=== PATIENT | female | born 1950 | race Caucasian/White ===

== ENCOUNTER 2024-10-27 16:16 | Emergency (ER) | payer OTHER, SELFPAY ==
[2024-10-27 17:05] VITALS: BP 133/72
--- NOTE | 2024-10-27 17:25 | ED.GENMED ---
ED Provider Triage
<Atiya Rodriguez PA-C - Last Filed: 10/28/24 17:30>
-
Patient seen by provider in Triage?: Seen in Triage
74-year-old female with history of hyperlipidemia, depression, hypothyroid presents with her daughter for change in mental status over the last several days. Patient is usually 'sharp as attack'. Last week she had a headache and her family doctor
prescribed her 5 days of prednisone, unknown what the dose was. Patient took the prednisone and had some lab work and urine and that was all unremarkable. Her headache got better. The family doctor was suspecting may be giant cell arteritis.
Patient has had steroids before without any problems. Within the last couple of days she has done things little strangely, felt very anxious, had trouble with her thoughts, fixated on certain things, having repetitive speech, drove around for 5
hours yesterday rather than going directly to [place] she was going 'here and there' when her daughter was monitoring her Apple Watch. Patient was not responding to text messages which is unusual for her and she normally is pretty sharp with
these things. She cannot figure out how to do her checkbook which is very unlike her.
Patient has no headache today. Daughter called the family doctor and was instructed to come in
A medical screening examination has been initiated by a qualified medical provider. Based on the assessment performed at this time, it has been determined that an emergent medical condition may exist and the patient has been informed that further
medical evaluation and possible additional diagnostic testing may be needed.
HPI: This is a medical evaluation conducted in person to initiate diagnostic evaluation and provide initial therapeutics. Please see further documentation by the treating clinician.
GENERAL: Alert , in no apparent distress
ENT: No visible abnormalities
LUNGS: No acute respiratory distress
NEUROLOGICAL: Alert and oriented x 3, cranial nerves intact, no deficits
SKIN: Skin intact. No visible changes.
MUSCULOSKELETAL: Moving extremities normally
PSYCH: Little anxious but otherwise appropriate
Patient here with a change in mental status over the last couple of days after taking steroids. She has had no changes to her medications otherwise. Patient is on an SSRI. She has been eating and drinking normally. She had a headache which is
why she was on the steroids to begin with. She no longer has headache. She is neurologically intact but she does seem a little anxious and perseverates over certain questions. Will workup for change in mental
History of Present Illness
<Atiya Rodriguez PA-C - Last Filed: 10/28/24 17:30>
General
Chief Complaint: Change in Mental Status
Time Seen by Provider: 10/27/24 21:39
<Brittany Zafar DO - Last Filed: 10/28/24 03:02>
History of Present Illness
History of Present Illness:
74-year-old female history of previous stroke with no residual deficits, hypertension, hypothyroidism, presenting with change in mental status. Daughter states that patient had a headache last week, seen by her PCP concern for temporal arteritis
and started on prednisone for 5 days which she completed on Sunday 10/22. Patient states that she had a urine sample last week at her doctor's office that was normal. Daughter states that for the past 1 week patient has been more 'hyperfocused'
on certain things, states that she has been also more confused. Daughter states that patient had difficulty balancing her checkbook which is abnormal for patient. Daughter states that patient was not taking her pills as prescribed, states that
pillbox looks like she was taking extra doses for some days and not on others. Daughter states that patient was a [place] the other day but also travel to the multiple other places in between but reported she only went to [place] when she
returned. Daughter states that when she came home today, patient appeared very 'jittery' prompting ED arrival. Patient denies any fever, headaches, chest pain, shortness of breath, cough, abdominal pain, or urinary symptoms.
Past History
<Atiya Rodriguez PA-C - Last Filed: 10/28/24 17:30>
Past History
ED Past Medical History: None
ED Past Surgical History: Other
Social History
Tobacco: Smoker
Alcohol: None
Personal: Single
Living: alone
Family History
Family History: Other
Phy Exam
<Brittany Zafar DO - Last Filed: 10/28/24 03:02>
Physical Exam
Physical Exam:
General: Alert, no acute distress
Head: NCAT
Eyes: clear conjunctiva
Neck: supple
Cardiac: regular rate and rhythm, no murmur
Lungs: clear to auscultation bilaterally. No wheezes, rales, or rhonchi. Speaking full unlabored sentences. No respiratory distress.
Abdomen: soft, nondistended nontender. No rebound or guarding.
MSK: no lower extremity edema bilaterally. No deformity
Skin: warm, dry
Neuro: Alert and oriented x3. Cranial nerves II through XII grossly intact no focal deficits. Normal finger-nose. 5-5 strength bilateral upper lower extremities. Sensation intact. No pronator drift.
Course
<Atiya Rodriguez PA-C - Last Filed: 10/28/24 17:30>
Orders/Labs/Results
Orders:
Orders
10/27/24 17:24
CT Head W/o Iv Contrast Urgent
Comment:
Reason For Exam: ams
10/27/24 17:27
Electrocardiogram (*1) Urgent
Reason for Study: TIA/Stroke
EKG- Treatment ONCE
10/27/24 17:38
Complete Blood Count/With Diff Urgent
Comprehensive Metabolic Panel Urgent
TSH Reflex To Free T4 Urgent
Urinalysis Reflex To Culture Urgent
Date Specimen was Collected: 10/27/24
Time Specimen was Collected: 17:36
Urine Microscopic Reflex Cult Urgent
Urine Culture Urgent
THEA Source: U
Specimen Description:
Date Specimen was Collected: 10/27/24
Time Specimen was Collected: 17:36
10/27/24 22:06
Cephalexin Monohydrate [Keflex] 500 mg PO NOW STA
Abnormal Lab Results
10/27/24
17:38
WBC 11.3 H 10^3/uL
(4.8-10.8)
RBC 3.88 L 10^6/uL
(4.20-5.40)
MCV 101.3 H fL
(81.0-99.0)
MCH 33.0 H pg
(27.0-31.0)
MCHC 32.6 L g/dL
(33.0-37.0)
MPV 10.9 H fL
(7.4-10.4)
Abs Immat Gran (auto) 0.2 H 10^3/uL
(0-0.05)
Absolute Neuts (auto) 6.6 H 10^3/uL
(1.4-6.5)
Absolute Monos (auto) 1.2 H 10^3/uL
(0.1-0.6)
Immature Gran % 1.3 H %
(0-0.5)
Monocytes % 10.3 H %
(1.7-9.3)
Glucose 122 H mg/dl
(70-99)
Leukocyte Esterase Rfl 1+ A
(Negative)
Urine WBC (Reflex) 30-40 A /HPF
(0-5)
Urine Bacteria (Reflex) Few A
(Negative)
Urine Albumin (Reflex) 2+ A
(Neg - Trace)
10/27/24 17:38
10/27/24 17:38
Vital Signs
Initial and Last Documented VS:
Initial Vital Signs
Temp Pulse Resp BP Pulse Ox
36.8 C 88 18 133/72 96
10/27/24 17:05 10/27/24 17:05 10/27/24 17:05 10/27/24 17:05 10/27/24 17:05
Last Documented Vital Signs
Temp Pulse Resp BP Pulse Ox
36.8 C 88 18 133/72 96
10/27/24 17:05 10/27/24 17:05 10/27/24 17:05 10/27/24 17:05 10/27/24 17:05
<Brittany Zafar, DO - Last Filed: 10/28/24 03:02>
Orders/Labs/Results
Orders:
Orders
10/27/24 17:24
CT Head W/o Iv Contrast Urgent
Comment:
Reason For Exam: ams
10/27/24 17:27
Electrocardiogram (*1) Urgent
Reason for Study: TIA/Stroke
EKG- Treatment ONCE
10/27/24 17:38
Complete Blood Count/With Diff Urgent
Comprehensive Metabolic Panel Urgent
TSH Reflex To Free T4 Urgent
Urinalysis Reflex To Culture Urgent
Date Specimen was Collected: 10/27/24
Time Specimen was Collected: 17:36
Urine Microscopic Reflex Cult Urgent
Urine Culture Urgent
THEA Source: U
Specimen Description:
Date Specimen was Collected: 10/27/24
Time Specimen was Collected: 17:36
10/27/24 22:06
Cephalexin Monohydrate [Keflex] 500 mg PO NOW STA
Abnormal Lab Results
10/27/24
17:38
WBC 11.3 H 10^3/uL
(4.8-10.8)
RBC 3.88 L 10^6/uL
(4.20-5.40)
MCV 101.3 H fL
(81.0-99.0)
MCH 33.0 H pg
(27.0-31.0)
MCHC 32.6 L g/dL
(33.0-37.0)
MPV 10.9 H fL
(7.4-10.4)
Abs Immat Gran (auto) 0.2 H 10^3/uL
(0-0.05)
Absolute Neuts (auto) 6.6 H 10^3/uL
(1.4-6.5)
Absolute Monos (auto) 1.2 H 10^3/uL
(0.1-0.6)
Immature Gran % 1.3 H %
(0-0.5)
Monocytes % 10.3 H %
(1.7-9.3)
Glucose 122 H mg/dl
(70-99)
Leukocyte Esterase Rfl 1+ A
(Negative)
Urine WBC (Reflex) 30-40 A /HPF
(0-5)
Urine Bacteria (Reflex) Few A
(Negative)
Urine Albumin (Reflex) 2+ A
(Neg - Trace)
10/27/24 17:38
10/27/24 17:38
Vital Signs
Initial and Last Documented VS:
Initial Vital Signs
Temp Pulse Resp BP Pulse Ox
36.8 C 88 18 133/72 96
10/27/24 17:05 10/27/24 17:05 10/27/24 17:05 10/27/24 17:05 10/27/24 17:05
Last Documented Vital Signs
Temp Pulse Resp BP Pulse Ox
36.8 C 88 18 133/72 96
10/27/24 17:05 10/27/24 17:05 10/27/24 17:05 10/27/24 17:05 10/27/24 17:05
<Brittany Zafar, DO - Last Filed: 10/28/24 03:02>
MDM/Problems Addressed
Differential Diagnosis Includes:
Intracranial hemorrhage, GEOVANI, electrolyte abnormality, UTI, prednisone side effect
MDM/Problems Addressed:
Labs reviewed. WBC 11.3. Electrolytes within normal limits. CT head shows no acute intracranial abnormality, chronic transcortical infarct of the left frontal parietal junctio, as read by radiology. UA concerning for UTI. Discussed results with
patient at bedside. Patient alert and oriented x 3. Patient requesting discharge home. Daughter feels comfortable taking patient home. Will start patient on keflex for UTI. Patient reports history of penicillin allergy as a kid, had a rash at
that time. Suspect patient will tolerate Keflex. Stable for discharge with PCP follow up
<Brittany Zafar DO - Last Filed: 10/28/24 03:02>
*EKG
Interpreted by ED Provider?: Yes (EKG shows normal sinus rhythm at 90 bpm with RI 124 QTc 438 no acute ischemic changes)
ED Attending Note
<Atiya Rodriguez PA-C - Last Filed: 10/28/24 17:30>
-
Portions of this chart may have been created with voice recognition software.� Occasional wrong word or��sound alike� substitutions may have occurred due to the inherent limitations of voice recognition software.
Discharge Plan
Departure
Patient Disposition: Home (Routine Discharge)
Date of Disposition: 10/27/24
Time of Disposition: 22:08
Patient with high blood pressure during this ER visit?: Yes
Discharge Problem:
Acute UTI
Instructions: Urinary tract infections in adults
Prescriptions:
New
cephalexin 500 mg capsule
500 mg PO Q8H 7 Days Qty: 21 0RF
No Action
atorvastatin 80 MG tablet
80 mg PO QPM
aspirin 325 MG tablet
325 mg PO DAILY
venlafaxine [Effexor XR] 150 MG capsule,extended release 24hr
150 mg PO DAILY
Levothyroxine
88 mg PO DAILY
Referrals:
Ben Hanks MD [Family Provider] -
Activity Restrictions/Additional Instructions:
Take Keflex 3 times daily for 7 days
Follow-up with your primary care doctor in 1 to 2 days
Return to the emergency department for fever, persistent vomiting, or new/worsening symptoms
Interventions
Interventions:
*Risk Screen - Suicide Last Done: 10/27/24 21:55
*General Assessment Last Done: 10/27/24 21:55
*Neglect/Abuse Screening Last Done: 10/27/24 21:55
ED- Fall Risk Assessment Last Done: 10/27/24 22:14
*ED COVID-19 Vaccine History Last Done: 10/27/24 17:05
*Nursing Disposition Last Done: 10/27/24 22:16
ED- Pulmonary Assessment Last Done: 10/27/24 22:14
ED- Neurological Assessment Last Done: 10/27/24 22:10
ED Swallowing Screen Last Done: 10/27/24 22:10
Discharge Date and Time
Discharge Date/Time: 10/27/24 22:17
Print Language: KYRGYZ
[2024-10-27 17:53] LABS: % Basophils 0.4 % (0-2); % Eosinophils 0.4 % (0-6); % Immature Granulocytes 1.3 % (0-0.5); % Lymphocytes 29.2 % (20.5-51.1); % Monocytes 10.3 % (1.7-9.3); % Neutrophils 58.4 % (42.2-75.2); Absolute Basophils 0.1 10^3/uL (0-0.2); Absolute Eosinophils 0.1 10^3/uL (0-0.7); Absolute Immature Granulocytes 0.2 10^3/uL (0-0.05); Absolute Lymphocytes 3.3 10^3/uL (1.2-3.4); Absolute Monocytes 1.2 10^3/uL (0.1-0.6); Absolute Neutrophils 6.6 10^3/uL (1.4-6.5); Hematocrit 39.3 % (37.0-47.0); Hemoglobin 12.8 g/dL (12.0-16.0); Mean Corp Hgb Conc. 32.6 g/dL (33.0-37.0); Mean Corpuscular Volume 101.3 fL (81.0-99.0); Mean Platelet Volume 10.9 fL (7.4-10.4); Nucleated Red Blood Cells % 0.2 %; Platelet Count 306 10^3/uL (130-400); Red Blood Cell Count 3.88 10^6/uL (4.20-5.40); Red Cell Dist. Width 13.6 % (11.5-14.5); White Blood Cell Count 11.3 10^3/uL (4.8-10.8)
[2024-10-27 17:55] LABS: Urine Albumin 2+ (Neg - Trace); Urine Bilirubin Negative (Negative); Urine Character Clear (Clear); Urine Color Yellow; Urine Glucose Negative (Negative); Urine Ketone Negative (Negative); Urine Leukocyte 1+ (Negative); Urine Nitrite Negative (Negative); Urine Occult Blood Negative (Negative); Urine Urobilinogen 1+ (Neg - 1+)
[2024-10-27 18:13] LABS: ALT (SGPT) 22 U/L (0-35); AST (SGOT) 22 U/L (14-36); Alkaline Phosphatase 88 U/L (38-126); Blood Urea Nitrogen 13 mg/dl (7-17); Calcium 10.1 mg/dl (8.4-10.2); Carbon Dioxide 29 mmol/L (22-30); Chloride 100 mmol/L (98-107); Glucose 122 mg/dl (70-99); Potassium 4.3 mmol/L (3.5-5.1); Sodium 137 mmol/L (135-145); Total Bilirubin 1.1 mg/dl (0.2-1.3); Total Protein 7.2 g/dl (6.3-8.2); eGFR > 60.00
[2024-10-27 18:44] LABS: TSH Reflex To Free T4 3.04 uIU/ml (0.47-4.68)
[2024-10-27 19:11] LABS: Urine Mucus Moderate; Urine Red Blood Cell 0-2 /HPF (0-2)
[2024-10-27 19:12] LABS: Urine Bacteria Few (Negative); Urine White Cell 30-40 /HPF (0-5)
[2024-10-27] MEDS: KEFLEX 500 MG PO (22:12)
== END 2024-10-27 22:17 | disposition home or self-care (01) ==
LOC: EMR 16:16
PROVIDERS: Physician Assistant; EMERGENCY PHYSICIAN Emergency Medicine; FAMILY PHYSICIAN Internal Medicine
DX: N39.0 Urinary tract infection, site not specified (principal); F17.200 Nicotine dependence, unspecified, uncomplicated; Z86.73 Personal history of transient ischemic attack (TIA), and cerebral infarction without residual deficits; I10 Essential (primary) hypertension; E03.9 Hypothyroidism, unspecified
CPT/HCPCS: 99284; 70450; 80053; 81003; 81015; 84443; 85025; 87086; 93005

== ENCOUNTER 2025-05-29 08:01 | Inpatient (IN) | payer OTHER, SELFPAY ==
[2025-05-25 18:19] VITALS: BP 138/75
--- NOTE | 2025-05-25 18:45 | ED.CVA ---
History of Present Illness
<Jorge Wilson PA-C - Last Filed: 05/25/25 21:24>
General
Chief Complaint: CVA/TIA Symptoms
Source: patient
Exam Limitations: none
Time Seen by Provider: 05/25/25 18:18
Onset of Stroke Symptoms
Onset of symptoms known: No
Time pt last seen normal is known: No
History of Present Illness
History of Present Illness:
Is a 74-year-old female with history of TIA on Eliquis presents via EMS from home where she lives with her daughter who noticed that this evening the patient was having trouble getting out of words slurring her words and had a left-sided facial
droop. Her daughter lives with her. Last she saw the daughter was 4:30 PM before the daughter went on a walk. Upon returning from a walk the daughter noticed the symptoms. Patient denies any headache chest pain or shortness of breath. She
denies any vision changes. No unilateral numbness or weakness. Per EMS they noticed a slight slurred speech upon their arrival and a very subtle left facial droop on their arrival however all symptoms seem to have resolved and route.
Past History
<Jorge Wilson PA-C - Last Filed: 05/25/25 21:24>
Past History
ED Past Medical History: None
ED Past Surgical History: Other
Social History
Tobacco: Smoker
Alcohol: None
Personal: Single
Living: alone
Family History
Family History: Other
Phy Exam
<Jorge Wilson PA-C - Last Filed: 05/25/25 21:24>
Physical Exam
Physical Exam:
General: Well-appearing female no acute respiratory distress
HEENT: Normal cephalic atraumatic face is pupils equal round reactive to light extract motion intact
Heart: Regular rate and rhythm
Lungs: Clear no wheeze
Neurologic exam: Alert and oriented no drift on exam to the upper or lower extremities finger-nose roim-pw-begs intact. No dysarthria or aphasia. Good sensation to the extremities.
Extremities: No cyanosis or edema
Scores
<Jorge Wilson PA-C - Last Filed: 05/25/25 21:24>
NIH Stroke Score
NIH Total Score:: 1
<Edy Roman MD - Last Filed: 05/25/25 19:51>
NIH Stroke Score
Level of Consciousness: 0 - Alert
LOC Questions: 0-Answers both correctly
LOC Commands: 0-Performs both correctly
Best Horizontal Gaze: 0-Normal
Visual Cox: 0=Normal, no visual loss
Facial Palsy: 1=Minor paralysis
Motor - Right Arm: 0=No drift 10 seconds
Motor - Left Arm: 0=No drift 10 seconds
Motor - Right Le-No drift 5 seconds
Motor - Left Le-No drift 5 seconds
Limb Ataxia: 0-Absent
Sensation: 0-Normal
Best Language: 0-No aphasia
Dysarthria: 0-Normal
Extinction and Inattention: 0-No abnormality
NIH Total Score:: 1
Thrombolytic Contraindication
Inclusion and Exclusion criteria reviewed: Yes
Reasons for NON-Tx with Thrombolytics ABSOLUTE Exclusions: Patient taking oral anticoagulant and last dose within 48 hours
Course
<Jorge Wilson PA-C - Last Filed: 05/25/25 21:24>
Orders/Labs/Results
Orders:
Orders
05/25/25 18:26
ECG [Electrocardiogram (*1)] Urgent
Reason for Study: TIA/Stroke
05/25/25 18:27
EKG- Treatment ONCE
05/25/25 18:28
Cardiovascular Evaluation Urgent
Complete Blood Count/With Diff Urgent
Comprehensive Metabolic Panel Urgent
05/25/25 18:48
CT Head W/o Iv Contrast Urgent
Reason For Exam: slurred speech, left facial droop
05/25/25 19:38
Add On- LAB Urgent
Tests Added?: lipid profile
Abnormal Lab Results
05/25/25
18:28
RBC 3.29 L 10^6/uL
(4.20-5.40)
Hgb 11.0 L g/dL
(12.0-16.0)
Hct 33.0 L %
(37.0-47.0)
MCV 100.3 H fL
(81.0-99.0)
MCH 33.4 H pg
(27.0-31.0)
MPV 11.5 H fL
(7.4-10.4)
Sodium 134 L mmol/L
(135-145)
Glucose 117 H mg/dl
(70-99)
05/25/25 18:28
05/25/25 18:28
Vital Signs
Initial and Last Documented VS:
Initial Vital Signs
Temp Pulse Resp BP Pulse Ox
98.5 F 83 16 138/75 97
05/25/25 18:19 05/25/25 18:19 05/25/25 18:19 05/25/25 18:19 05/25/25 18:19
Last Documented Vital Signs
Temp Pulse Resp BP Pulse Ox
98.5 F 86 24 130/100 97
05/25/25 18:19 05/25/25 20:30 05/25/25 20:30 05/25/25 20:01 05/25/25 18:48
<Edy Roman MD - Last Filed: 05/25/25 19:51>
Orders/Labs/Results
Orders:
Orders
05/25/25 18:26
ECG [Electrocardiogram (*1)] Urgent
Reason for Study: TIA/Stroke
05/25/25 18:27
EKG- Treatment ONCE
05/25/25 18:28
Cardiovascular Evaluation Urgent
Complete Blood Count/With Diff Urgent
Comprehensive Metabolic Panel Urgent
05/25/25 18:48
CT Head W/o Iv Contrast Urgent
Reason For Exam: slurred speech, left facial droop
05/25/25 19:38
Add On- LAB Urgent
Tests Added?: lipid profile
Abnormal Lab Results
05/25/25
18:28
RBC 3.29 L 10^6/uL
(4.20-5.40)
Hgb 11.0 L g/dL
(12.0-16.0)
Hct 33.0 L %
(37.0-47.0)
MCV 100.3 H fL
(81.0-99.0)
MCH 33.4 H pg
(27.0-31.0)
MPV 11.5 H fL
(7.4-10.4)
Sodium 134 L mmol/L
(135-145)
Glucose 117 H mg/dl
(70-99)
05/25/25 18:28
05/25/25 18:28
Vital Signs
Initial and Last Documented VS:
Initial Vital Signs
Temp Pulse Resp BP Pulse Ox
98.5 F 83 16 138/75 97
05/25/25 18:19 05/25/25 18:19 05/25/25 18:19 05/25/25 18:19 05/25/25 18:19
Last Documented Vital Signs
Temp Pulse Resp BP Pulse Ox
98.5 F 86 24 130/100 97
05/25/25 18:19 05/25/25 20:30 05/25/25 20:30 05/25/25 20:01 05/25/25 18:48
<Jorge Wilson PA-C - Last Filed: 05/25/25 21:24>
MDM/Problems Addressed
Differential Diagnosis Includes:
Patient brought here for concern and family member's behalf secondary to slurred speech and facial droop. On my exam there is no evidence of dysarthria or aphasia or facial droop. There is no unilateral deficit noted. Concern for possible TIA.
She is on Eliquis. Discussed with emergency room attending as well as neurology. CT angio of the head and neck ordered. Labs and EKG pending.
<Jorge Wilson PA-C - Last Filed: 05/25/25 21:24>
*Pulse Oximetry
SaO2: 97
Oxygen Mode of Delivery: Room air
Patient hypoxic: no
*Critical Care Note
Total Time (30-74mins, 75-104mins- exclusive of procedures): Not Applicable
<Jorge Wilson PA-C - Last Filed: 05/25/25 21:24>
Update Note
Update Note:
CT of the head showed old bilateral MCA infarcts but no acute findings. Patient reexamined family now in the room. Still with clear speech. Discussed emergency room attending as well as neurology. Will admit to hospital for TIA workup.
ED Attending Note
<Jorge Wilson PA-C - Last Filed: 05/25/25 21:24>
-
Portions of this chart may have been created with voice recognition software.� Occasional wrong word or��sound alike� substitutions may have occurred due to the inherent limitations of voice recognition software.
<Edy Roman MD - Last Filed: 05/25/25 19:51>
ED Attending Note
Patient seen and examined by attending physician: Yes
ED Attending Note:
I have seen and evaluated the patient with a [id number] encounter. I have spoken to the advance practicer provider and involved in the medical history, the physical exam, medical decision making.
Evaluation and management service: agree unless noted differently below.
Results interpretation: agree unless noted differently below.
Focused HPI: 74-year-old female with history of hypertension, CVA, A-fib on Eliquis presents to the ER with daughters for evaluation after episode of facial droop and slurred speech, confusion. She was last seen normal at 4:30 PM, daughter returned
home from a walk and found her sitting at the table appeared more subdued than usual and had notable left facial droop and was slurring speech. EMS called to bring her to the hospital. Symptoms have improved and patient says she feels back to
normal. Daughter says that she essentially looks normal except she still has a very subtle residual facial droop on the left. Patient does not and did not have any weakness or numbness in extremities, change in her vision. Denies any headache.
She is on Eliquis and reports compliance with dose taken this morning.
Physical exam: Awake and alert not in distress. Vital signs are within acceptable range. No appreciable cardiac rubs gallops or murmurs. Regular rhythm on auscultation. Lungs sound clear. She does seem to have a very subtle downturn in the left
corner of her mouth compared to the right which daughter is saying is abnormal. Cranial nerves are otherwise intact. Speech is fluid without dysarthria or aphasia here. Motor and sensory is intact in all extremities.
Medical Decision Makin-year-old female presents for evaluation of facial droop with slurred speech and confusion�symptoms have essentially resolved aside from a very subtle facial droop. She does have a history of A-fib and is on Eliquis and
compliant. Last known normal 4:30 PM. No stroke alert as patient would not be a TNK candidate with oral coagulant on board. Nevertheless we will pursue CTA head and neck�discussed case with neurology who agrees. Plan likely for admission with
concern for TIA/stroke.
Discharge Plan
Departure
Patient Disposition: Admit
Date of Disposition: 05/25/25
Time of Disposition: 21:24
Presentation/result/management discussed w/ accepting MD/DO: Hospitalist
Discharge Problem:
TIA
Prescriptions:
No Action
levothyroxine [Synthroid] 125 mcg Tablet
125 mcg PO DAILY
losartan 50 mg Tablet
50 mg PO DAILY
atorvastatin [Lipitor] 40 mg Tablet
40 mg PO QPM
Theragen Tablet
1 tab PO DAILY
acetaminophen [Tylenol Arthritis] 650 mg Tablet Extended Release
650 mg PO [id number] PRN (Reason: mild pain)
venlafaxine 225 mg Tablet Extended Release 24hr
225 mg PO DAILY
melatonin 10 mg Tablet
10 mg PO HSPRN PRN (Reason: sleep)
Eliquis 5 mg Tablet
5 mg PO BID
Referrals:
Ben Hanks MD [Family Provider]
Interventions
Interventions:
*Risk Screen - Suicide Last Done: 05/25/25 18:19
*General Assessment Last Done: 05/25/25 18:19
*Neglect/Abuse Screening Last Done: 05/25/25 18:26
*ED- Fall Risk Assessment Last Done: 05/25/25 18:26
*ED COVID-19 Vaccine History Last Done: 05/25/25 18:26
ED- Pulmonary Assessment Last Done: 05/25/25 18:23
ED- Neurological Assessment Last Done: 05/25/25 18:23
ED- Cardiac Assessment Last Done: 05/25/25 18:23
ED Swallowing Screen Last Done: 05/25/25 20:45
Discharge Date and Time
Print Language: CZECH
[2025-05-25 19:00] VITALS: BP 126/86
[2025-05-25 19:12] LABS: ALT (SGPT) 21 U/L (0-35); AST (SGOT) 27 U/L (14-36); Albumin 4.5 g/dl (3.5-5.0); Alkaline Phosphatase 73 U/L (38-126); Blood Urea Nitrogen 11 mg/dl (7-17); Calcium 9.2 mg/dl (8.4-10.2); Carbon Dioxide 28 mmol/L (22-30); Chloride 100 mmol/L (98-107); Glucose 117 mg/dl (70-99); Hematocrit 33.0 % (37.0-47.0); Hemoglobin 11.0 g/dL (12.0-16.0); Mean Corp Hgb Conc. 33.3 g/dL (33.0-37.0); Mean Corpuscular Volume 100.3 fL (81.0-99.0); Platelet Count 288 10^3/uL (130-400); Potassium 4.4 mmol/L (3.5-5.1); Red Cell Dist. Width 13.2 % (11.5-14.5); Sodium 134 mmol/L (135-145); Total Protein 6.9 g/dl (6.3-8.2); eGFR > 60.00
[2025-05-25 20:01] VITALS: BP 130/100
[2025-05-25 20:19] LABS: HDL Cholesterol 63 mg/dl; LDL Cholesterol, Calculated 57 mg/dl; Very Low Density Lipoprotein 24 mg/dl (0-30)
[2025-05-25 21:14] VITALS: BP 145/69
--- NOTE | 2025-05-25 21:25 | W.PN.UPDATE ---
Update Note
Progress Note Update
This is an addendum for H&P written by PARTS FACILITATOR Magaly Domínguez
I saw and examined the patient.
The PARTS FACILITATOR's note was reviewed and I agree with the note.
Comment:
Ms. Shereen Hayden is a 74 yo woman with hx TIA on Eliquis, hypothyroidism, HLD, HTN who presents to the ER with left sided facial droop and slurred speech. Symptoms resolved en route.
Triage VS: T 98.5, P 83, RR 16, BP 138/75, SpO2 97%
On exam patient is AAO x 3, no facial asymmetry, TAMARA, 5/5 strength upper and lower extremities; CV: S1, S2, irregular rhythm, no LE swelling
LABS: WBC 9.8, Hg 11, PLT 288, Na 134, K+ 4.4, CO2 28, Cr 0.6, Glucose 117, liver enzymes WNL
CT Head
IMPRESSION:
No acute intracranial abnormality.
Left MCA territory old infarct again seen.
Cannot exclude small old right parietal lobe infarct.
TIA
-give Eliquis now
-admit to telemetry
-continue CULLET TRUCKER Eliquis (as deficits now resolved)
-MRI/MRA
-Neuro checks
-Neurology consult
Essential HTN - CULLET TRUCKER Losartan
Hypothyroidism - CULLET TRUCKER Synthroid
HLD - CULLET TRUCKER Statin
Remainder of plan per PARTS FACILITATOR note
--- NOTE | 2025-05-25 21:32 | HPS.HSE ---
Family Physician
-
Family Physician: Ben Hanks
Chief Complaint
-
Left facial droop, slurring of words
History of Present Illness
74-year-old female from home where she lives with her daughter states she was having slurring of her words with left-sided facial droop. She was last seen normal at 4:30 PM by her daughter before her daughter left for a walk upon returning
approximately [phone] daughter noticed the symptoms. EMS noticed slight slurred speech upon arrival and subtle left facial droop that resolved en route to the hospital. The patient does not recall having the symptoms she felt that she was fine.
She denies looking in the mirror to see if she had facial droop. She denies headache, fever, chills, sore throat, chest pain, palpitations, cough, shortness breath, abdominal pain, nausea, vomiting, diarrhea, urinary symptoms. Patient has past
medical history of CVA 2013 (Left MCA territory old infarct), HTN, HLD, paroxysmal A-fib on Eliquis hypothyroidism, prediabetes, anxiety
Medical History
Past Medical History
Past Medical History: Reports Other
Additional Past Medical History:
CVA (Left MCA territory old infarct,small old right parietal lobe infarct) 2013
HTN
HLD
Hypothyroidism
Paroxysmal A-fib
Prediabetes
Anxiety
Former smoker 45-year 1.5 pack/day quit age 64
Past Surgical History: Reports Other
Additional Past Surgical History:
Patent ductus arteriosus repair 1954
Cholecystectomy
Throat surgeries to remove polyps
Hip replacement
Bilateral knee replacement
Right hand carpal tunnel
Social History
Tobacco: Former Smoker (Former smoker 45-year 1.5 pack/day quit age 64)
Alcohol: Occasional (2-3 times a month)
Personal:
Living: With Family
Employment: Retired
Family History
Family History: Not pertinent
Allergies / Home Medications
Allergies reflects when Allergies were last updated in [facility].
Home Medications with original date entered in [facility]
Allergy/Medication List:
Allergies
Allergy/AdvReac Type Severity Reaction Status Date / Time
Penicillins Allergy Rash Verified 05/25/25 18:21
Home Medications
levothyroxine 125 mcg tablet (Synthroid) 125 mcg PO DAILY 10/08/16
acetaminophen 650 mg tablet,extended release 650 mg PO [id number] PRN mild pain 05/25/25
apixaban 5 mg tablet (Eliquis) 5 mg PO BID 05/25/25
atorvastatin 40 mg tablet (Lipitor) 40 mg PO QPM 05/25/25
losartan 50 mg tablet 50 mg PO DAILY 05/25/25
melatonin 10 mg tablet 10 mg PO HSPRN PRN sleep 05/25/25
therapeutic multivitamin 1 tab PO DAILY 05/25/25
venlafaxine 225 mg tablet,extended release 24 hr 225 mg PO DAILY 05/25/25
Review of Systems
-
History Source: Patient
A 12 point ROS was completed and negative except as noted: Yes
Constitutional: Denies Fever, Fatigue or Chills
EENT: Reports Other (Reported slurred speech left facial droop); Denies Sore Throat
Respiratory: Denies Cough or Trouble Breathing
Cardiac: Denies Chest Pain, Diaphoresis, Palpitations or Syncope
Abdomen/GI: Denies Abdominal Pain, Nausea, Vomiting, Diarrhea or Constipated
: Denies Dysuria, Frequency, Flank Pain, Incontinence, Difficulty Voiding or Urgency
Musculoskeletal: Denies Joint Pain, Joint Swelling or Edema
Skin: Denies Itching or Rash
Neurological: Denies Dizzy, Headache, Weakness or Numbness
Endocrine: Reports No Symptoms
Hematologic/Lymphatic: Reports No Symptoms
Psych: Reports Calm
Physical Exam
Vital Signs
Vital Signs
Temp Pulse Resp BP Pulse Ox
98.5 F 86 24 130/100 97
05/25/25 18:19 05/25/25 20:30 05/25/25 20:30 05/25/25 20:01 05/25/25 18:48
Physical Exam
General: Comfortable and Conversant; No Fever, Chills or Slurred Speech
HEENT: NormoCephalic, Anicteric, Moist mucous membranes, Atraumatic, PERRLA, Moro Conjunctivae and No Ptosis
Respiratory: Clear; No Wheezes, Rales or Rhonchi
Cardiac: S1/S2 and Regular Rhythm (81 bpm appears to be bigeminy); No Murmur, Rub, Gallop or Peripheral Edema
Breast: Deferred by me
GI: Soft, Non Tender, Non Distended, Normal Bowel Sounds and No Hepatosplenomegaly
Rectal: Deferred by Provider
Genito-urinary: Deferred by me
Musculoskeletal: No Clubbing, No Cyanosis and No Edema
Skin: Warm and Dry; No Rash
Neuro: AO x 3, No Motor Deficits, Nonfocal/grossly intact, Cranial Nerves Intact, No Sensory Deficits and Other (Strength 5 out of 5 upper and lower extremities walked to bathroom to and from steady gait); No Slurred Speech, Facial Droop, Tremors or
Sedated
Psych: Calm
Laboratory Results
-
05/25/25 18:28
05/25/25 18:28
Laboratory Results
Total Bilirubin 0.5 mg/dl (0.2-1.3) 05/25/25 18:28
AST 27 U/L (14-36) 05/25/25 18:28
ALT 21 U/L (0-35) 05/25/25 18:28
Alkaline Phosphatase 73 U/L (38-126) 05/25/25 18:28
Impression/Plan
-
Impression/plan:
Observation telemetry
#Left facial droop/slurred speech concern for CVA/TIA
#History CVA left MCA possible old right parietal lobe infarct 2013
- Consult neurology
- MRI MRI brain
-Check lipid profile, HgbA1c
-Continue Eliquis, continue Lipitor
-Consult PT
CT head: No acute intracranial abnormality
Left MCA territory old infarct again seen
cannot exclude small old right parietal lobe infarct
#HTN
BP 145/69
-Allow permissive HTN x 24 hours
-Continue losartan 50 mg daily
#Anemia macrocytic
Hgb 11 baseline appears 12.8-13
-Check B12, folate, iron panel
#A-fib
Continue Eliquis 5 mg twice daily
EKG: Heart rate 81 bpm possible bigeminy P waves are present QTc 436 MS
#History prediabetes
Blood sugar 117
Check HgbA1c
#HLD
-Lipid profile
-Continue Lipitor 40 mg every afternoon
#Hypothyroidism
-Continue Synthroid 125 mcg p.o. daily
#Anxiety
Continue Effexor to 25 mg daily
#Insomnia
-Continue melatonin 10 mg at bedtime as needed
VTE prophylaxis
Continue Eliquis
[2025-05-25 21:48] LABS: Nucleated Red Blood Cells % 0 %
[2025-05-25] MEDS: ELIQUIS 5 MG PO (22:26)
[2025-05-25 22:28] VITALS: BP 146/82
[2025-05-26] VITALS (10 sets, daily range): BP systolic 114–150; BP diastolic 54–77; PULSE 79–96; O2SAT 96–97; BMI 29.7
[2025-05-26] MEDS: MELATONIN 10 MG PO (00:26)
[2025-05-26] MEDS: SYNTHROID 125 MCG PO (04:48)
[2025-05-26 08:09] LABS: Hematocrit 32.8 % (37.0-47.0); Hemoglobin 11.0 g/dL (12.0-16.0); Mean Corp Hgb Conc. 33.5 g/dL (33.0-37.0); Mean Corpuscular Volume 100.3 fL (81.0-99.0); Nucleated Red Blood Cells % 0 %; Platelet Count 280 10^3/uL (130-400); Red Cell Dist. Width 13.2 % (11.5-14.5)
[2025-05-26 08:48] LABS: ALT (SGPT) 19 U/L (0-35); AST (SGOT) 22 U/L (14-36); Albumin 4.2 g/dl (3.5-5.0); Alkaline Phosphatase 76 U/L (38-126); Blood Urea Nitrogen 8 mg/dl (7-17); Calcium 9.3 mg/dl (8.4-10.2); Carbon Dioxide 27 mmol/L (22-30); Chloride 104 mmol/L (98-107); Estimated Creatinine Clearance 75 ml/min; Glucose 107 mg/dl (70-99); HDL Cholesterol 63 mg/dl; Iron 115 ug/dl (37-170); LDL Cholesterol, Calculated 67 mg/dl; Magnesium 1.9 mg/dl (1.6-2.3); Potassium 4.3 mmol/L (3.5-5.1); Sodium 137 mmol/L (135-145); Total Protein 6.6 g/dl (6.3-8.2); Very Low Density Lipoprotein 19 mg/dl (0-30); eGFR > 60.00
[2025-05-26 08:59] LABS: Total Iron Binding Capacity 231 ug/dl (265-497)
--- NOTE | 2025-05-26 09:08 | CON.NEURO4 ---
Addendum entered and electronically signed by Kme Flores MD 05/26/25 10:59:
Studies reviewed.
I have personally examined the patient. I reviewed and agree with the TELEGRAPH LINEMAN's Note.
My addenda:
Awake, alert, interactive. No acute distress.
Speech intact.
Follows 2-step requests w/o difficulty. No tremor.
Extra-ocular movements grossly intact.
Facial movements full and symmetric. Hearing intact to normal conversational volume.
Normal UE movements bilaterally.
Neck: full ROM.
Chest: no dyspnea
Heart: no JVD
Ext: (-) Clubbing, (-) Cyanosis, (-) Edema
IMPRESSIONS/RECOMMENDATIONS:
Abrupt onset of change of speech in a patient with prior history of acute ischemic stroke. Patient symptoms were also associated with left-sided facial droop. Differential diagnosis includes recurrent stroke or metabolic abnormality producing
recrudescence of symptoms
Continue patient's usual apixaban
Check CTA head and neck for possible carotid stenosis
Check MRI of brain await LDL, continue atorvastatin
Goal of normotension
Rehabilitation evaluations and treatment
Consideration for neuropsychological evaluation to discover baseline for the patient's cognition as outpatient
Obtain records from patient's usual hospital
D/W patient / family
All questions answered.
Will continue to follow pending results.
Original Note:
Documented by User: Shawanda Hartley NP 05/26/25 10:45
Consultation - Neurology 4
-
CONSULTING PHYSICIAN: Kem Flores MD
REFERRING PHYSICIAN: Hospitalists/GARRETT Lopez
DICTATED BY: GARRETT Joseph
DATE/TIME OF REQUEST: 05/25/25
DATE/TIME OF CONSULTATION: 05/26/25
Reason for Consultation: Dysarthria, left facial drooping
History of Present Illness:
This is a 74-year-old right-handed female who has presented to the hospital with report of dysarthria and left facial drooping. Patient has a history of an old L MCA territory and right parietal lobe ischemic stroke. Per the patient and her son at
bedside, they report that yesterday (05/25/25) she was in her usual state around 1630. The next time her daughter saw her around 1730, she noted that the patient's left face was drooping and her speech was dysarthric, prompting her to bring the
patient to the ER for evaluation. NIHSS was 1 on arrival for mild left facial drooping. CT head was obtained and is negative for any acute abnormalities. She was not a candidate for TNK/IAT due to apixaban usage in the past 12 hours (she has not
missed any doses) and low NIHSS. Patient's son reports that they left last evening at 2100 and her symptoms were lingering, today (05/26/25), she is back to her baseline. She denies any headache, dizziness, vision changes, speech/swallow difficulty,
numbness, and weakness. She does note chronic intermittent dizziness with position change when she does not stay hydrated.
Past Medical History: Old L MCA and right parietal lobe ischemic infarcts, Afib (apixaban), HTN, HLD, hypothyroidism, anxiety, prediabetes
Surgical History: Cholecystectomy, R carpal tunnel release, b/l knee replacement, throat polypectomy, hip replacement, , patent ductus arteriosus repair
Family History: Reviewed and noncontributory.
Social History: Former smoker. Occasional alcohol. Denies illicit drug use.
Allergies: Penicillins.
Home Medications: See below.
Review of Symptoms:
Patient denies any fever, headache, chest pain, shortness of breath, GI or symptoms.
�Per the HPI.�All systems are reviewed negative except above.
Physical Exam:
The patient is afebrile, abdomen is nondistended, breathing is unlabored, skin is warm and dry, no edema.
NIH Stroke Scale:
I performed the NIH stroke scale on the patient on 05/26/25 at 0915. The patient scored 0 points on the NIH stroke scale assessment, which were assigned as follows: See below.
Neurologic Examination:
The patient is awake, alert and oriented x 3. She is able to follow commands and answer questions appropriately. Clock drawing, did 1-6 correctly but then started writing 35, 40, 45. There is no aphasia or dysarthria. On cranial nerve assessment,
pupils are 3 mm bilateral, round and reactive to light and accommodation. Visual cox are full. Extraocular movements are severely reduced with upgaze and difficulty following to the left. Facial sensations are intact and bilaterally symmetrical,
there is no facial asymmetry. Hearing is intact bilaterally to normal conversation volume. Tongue palate and uvula are midline. Sternocleidomastoid strengths are full bilaterally. Motor strengths are 5/5 bilateral upper and lower extremities on
medical research Kinder scale. There is no drift or involuntary movement noted. Deep tendon reflexes are 2+ bilateral upper and lower extremities and Babinski is absent bilaterally. There was no extinction noted on double simultaneous stimulation.
Coordination is intact by finger to nose bilaterally.
Lab Results: See below.
Neuro Imaging:
1. CT head 05/25/25: No acute intracranial abnormality. Left MCA territory old infarct again seen. Cannot exclude small old right parietal lobe infarct.
Differentials for the patient's presentation include:
1. Transient left facial drooping and dysarthria; etiology possibly small ischemic stroke.
Patient has the following risk factors for their symptoms: Hx stroke, apixaban usage, HTN, HLD
IV Tenecteplase/IAT candidacy: She was not a candidate for TNK/IAT due to apixaban usage in the past 12 hours (she has not missed any doses) and low NIHSS.
Recommendations:
-Continue home apixaban.
-CTA head/neck pending to rule out carotid stenosis.
-MRI brain noncontrast pending.
-Goal normotension.
-LDL goal <70. LDL is
-Goal normoglycemia, hbA1c is
-NIHSS and neurological checks per unit guidelines.
-Provide patient/family with a stroke education packet.
-PT/OT/ST evaluations.
Discussed patient care with: Dr. Flores, the patient, patient's family
Vital Signs and Labs
-
Vital Signs and Labs:
Vital Signs
Temp Pulse Resp BP Pulse Ox
99.1 F 85 16 146/72 100
05/26/25 07:42 05/26/25 09:40 05/26/25 07:42 05/26/25 09:40 05/26/25 09:33
Lab Results
05/26/25 07:11
05/26/25 07:11
Sodium 137 mmol/L (135-145) 05/26/25 07:11
Potassium 4.3 mmol/L (3.5-5.1) 05/26/25 07:11
BUN 8 mg/dl (7-17) 05/26/25 07:11
Glucose 107 mg/dl (70-99) H 05/26/25 07:11
Calcium 9.3 mg/dl (8.4-10.2) 05/26/25 07:11
LDL Cholesterol, Calc 67 mg/dl 05/26/25 07:11
Vitamin B12 473 pg/ml (239-931) 05/26/25 07:11
Medications
-
Active Medications
Generic Name Dose Route Start Last Admin
Trade Name Freq PRN Reason Stop Dose Admin
Acetaminophen 650 mg 05/25/25 23:52
Acetaminophen 325 Mg Tablet PO 06/22/25 23:51
Q4HPRN PRN
mild pain
Apixaban 5 mg 05/26/25 08:00 05/26/25 09:39
Apixaban (Eliquis) 5 Mg Tablet PO 06/23/25 07:59 5 mg
BID RUTHANN Administration
Atorvastatin Calcium 40 mg 05/26/25 18:00
Atorvastatin (Lipitor) 40 Mg Tablet PO 06/23/25 17:59
QPM RUTHANN
Levothyroxine Sodium 125 mcg 05/26/25 06:00 05/26/25 04:48
Levothyroxine 125 Mcg Tablet PO 06/23/25 05:59 125 mcg
DAILY @ 0600 RUTHANN Administration
Losartan Potassium 50 mg 05/26/25 08:00 05/26/25 09:40
Losartan 50 Mg Tablet PO 06/23/25 07:59 50 mg
DAILY RUTHANN Administration
Melatonin 10 mg 05/25/25 23:52 05/26/25 00:26
Melatonin 5 Mg Tablet PO 10 mg
HSPRN PRN Administration
sleep
Sodium Chloride 0 flush 05/25/25 23:00 05/26/25 09:41
Sodium Chloride 0.9% (Flush) Syringe IV 06/22/25 22:59 1 flush
PER PROTOCOL RUTHANN Administration
Venlafaxine HCl 225 mg 05/26/25 08:00 05/26/25 09:40
Venlafaxine 75 Mg Extended Release Capsule PO 06/23/25 07:59 225 mg
DAILY RUTHANN Administration
Home Medications
�Medication �Instructions �Recorded
levothyroxine 125 mcg tablet 125 mcg PO DAILY Thyroid 10/08/16
(Synthroid)
acetaminophen 650 mg 650 mg PO [id number] PRN mild pain 05/25/25
tablet,extended release
apixaban 5 mg tablet (Eliquis) 5 mg PO BID Blood Clot 05/25/25
Prevention/Tx
atorvastatin 40 mg tablet (Lipitor) 40 mg PO QPM High Cholesterol 05/25/25
losartan 50 mg tablet 50 mg PO DAILY Blood Pressure 05/25/25
melatonin 10 mg tablet 10 mg PO HSPRN PRN sleep 05/25/25
therapeutic multivitamin 1 tab PO DAILY Supplement 05/25/25
venlafaxine 225 mg tablet,extended 225 mg PO DAILY Mental 05/25/25
release 24 hr Health/Anxiety
NIH Stroke Score
Subsequent NIH Scale
Date of Subsequent NIH Scale: 05/26/25
Time of Subsequent NIH Scale: 09:15
NIH Stroke Score
Level of Consciousness: 0 - Alert
LOC Questions: 0-Answers both correctly
LOC Commands: 0-Performs both correctly
Best Horizontal Gaze: 0-Normal
Visual Cox: 0=Normal, no visual loss
Facial Palsy: 0=Normal, symmetrical
Motor - Right Arm: 0=No drift 10 seconds
Motor - Left Arm: 0=No drift 10 seconds
Motor - Right Le-No drift 5 seconds
Motor - Left Le-No drift 5 seconds
Limb Ataxia: 0-Absent
Sensation: 0-Normal
Best Language: 0-No aphasia
Dysarthria: 0-Normal
Extinction and Inattention: 0-No abnormality
NIH Total Score:: 0
Modified Reji (mRS) Score
Modified Rinard Scale (mRS): No symptoms
Score: 0
Alteplase Contraindication
Inclusion and Exclusion criteria reviewed: Yes
Reasons for NON-Tx with Thrombolytics ABSOLUTE Exclusions: Patient taking oral anticoagulant and last dose within 48 hours
IAT Contraindications: NIHSS < 6

Documented by User: Kem Flores MD 05/26/25 10:56
NIH Stroke Score
NIH Stroke Score
NIH Total Score:: 0
Modified Rinard (mRS) Score
Score: 0
[2025-05-26 09:12] LABS: Glycohemoglobin (HgbA1c) 6.2 % (4.0-5.6)
[2025-05-26 09:20] LABS: Ferritin 183.0 ng/ml (11.1-264.0)
[2025-05-26] MEDS: ELIQUIS 5 MG PO ×2 (09:39→20:32)
[2025-05-26] MEDS: EFFEXOR XR 225 MG PO (09:40)
[2025-05-26] MEDS: COZAAR 50 MG PO (09:40)
[2025-05-26] MEDS: FLUSH (NSS) 1 FLUSH IV (09:41)
[2025-05-26 09:52] LABS: Folate > 20.0 ng/ml (2.76-20); Vitamin B12 473 pg/ml (239-931)
--- NOTE | 2025-05-26 11:31 | W.PN.HOSP.TC ---
Today's Communication/Plan
-
Assessment / Plan
Assessment / Plan
General: No Apparent Distress, Comfortable and Conversant
HEENT: NormoCephalic, Moist mucous membranes, Atraumatic
Respiratory: Clear and Non Labored Respirations
Cardiac: S1/S2 and Regular Rhythm; No Rub or Gallop
GI: Soft, Non Tender, Non Distended and Normal Bowel Sounds
Musculoskeletal: No Edema, no deformity
Skin: Warm and dry
: NO Garcia
Neuro: Awake, Alert, Nonfocal/grossly intact
Psych: Calm and Intact Judgment/Insight
Ms. Hayden is a 74-year-old male with a medical history of CVA (left MCA, right parietal 2014), paroxysmal A-fib, hypertension, and hypothyroidism who presented due to concerns for slurring of speech and left facial droop. Her symptoms
resolved by the time she was evaluated in the ED. She did not receive thrombolytics. CT brain brain showed old MCA territory infarct with no acute abnormalities noted. She was admitted for further evaluation and management.
TIA:
- MRI/MRA head and neck pending
- Continue neurochecks
- To be evaluated by neurology
- PT/OT
- Blood pressure has been acceptable, will continue home losartan
A-fib:
- Currently rate controlled
- Continue anticoagulation with home Eliquis
Hypertension:
- Blood pressure currently well-controlled
- Continue home losartan 50 mg daily
Hypothyroidism:
- Continue home Synthroid 125 mcg daily
DVT prophylaxis: Eliquis
CODE STATUS: Full code
Total time spent on today's encounter was 40 minutes
Anticipated Discharge: 24 - 48 hours
Subjective/Interval History
-
Date of Service: May 26, 2025
Patient was seen and examined at bedside this morning. Awake and alert, feeling well. Had just ordered breakfast. Awaiting MRI and neurology evaluation.
Objective Data
-
Labs:
Laboratory Results
05/26/25
07:11
WBC 7.5
Hgb 11.0 L
Hct 32.8 L
Plt Count 280
Sodium 137
Potassium 4.3
Chloride 104
Carbon Dioxide 27
BUN 8
Creatinine 0.6
Glucose 107 H
Calcium 9.3
Total Bilirubin 0.8
AST 22
ALT 19
Alkaline Phosphatase 76
Vital Signs:
Vital Signs
Temp Pulse Resp BP Pulse Ox
99.1 F 85 16 146/72 100
05/26/25 07:42 05/26/25 09:40 05/26/25 07:42 05/26/25 09:40 05/26/25 09:33
Review of Systems
-
History Source: Patient
All other systems: Reviewed and negative
Physical Exam
-
General: No Apparent Distress
--- NOTE | 2025-05-26 15:31 | CM ---
Patient seen bedside w/ son, Ben. Initial assessment completed. Patient is a 74-year-old female from home where she lives with her daughter states she was having slurring of her words with left-sided facial droop.
Patient resides w/ her daughter and son in law in a 2STH, 6 steps to enter from the outside. Patient is independent in all areas, no devices required. Patient has a tub grab bar in the bathroom. No SNF/HC hx.
Address, point of contact and insurance verified. Patient requesting son to be added as secondary contact. Admissions updated
PCP: Ben Hanks
Pharmacy: [facility]
Patient admitted under obs services. VANNA verbally reviewed, copy provided, copy on chart
Therapy assessed patient, recommending OP therapy. Awaiting brain MRI results.
Plan: Home w/ OP therapy. Will need script at d/c
--- NOTE | 2025-05-26 16:09 | PTCARENOTE ---
Pt AAO x3, LUNA well, OOB to BR with minimal assistance; slight unsteadiness with activity; pt denies weakness/dizziness. NIHSS currently 2- pt has slight intermittent Lt upper lip dropp; occ slight word- slurring. Pt anxious at times; occ forgetful.
VSS. Telemetry:NSR. On room air- pulse ox 96%, no SOB noted. Abd soft, rounded, gokul PO well, no sx of dysphagia noted. Voids in BR without difficulty. Resting in bed at present, no c/o. Family at bedside. Will continue to monitor.
[2025-05-26] MEDS: LIPITOR 40 MG PO (17:58)
[2025-05-27] VITALS (8 sets, daily range): BP systolic 123–165; BP diastolic 54–71; PULSE 86–105
[2025-05-27] MEDS: SYNTHROID 125 MCG PO (04:38)
--- NOTE | 2025-05-27 05:35 | PTCARENOTE ---
Pt is AAOx3, forgetful at times and anxious. Pt doesn't want to stay and wants to go home. Pt did refuse VS once throughout the night. NIH score 1, some slur speech. Gen weakness. NSR w/ PAC's. OOBx1. Neuro checks done.
[2025-05-27] MEDS: COZAAR 50 MG PO (09:57)
[2025-05-27] MEDS: ELIQUIS 5 MG PO (09:58)
[2025-05-27] MEDS: FLUSH (NSS) 1 FLUSH IV (09:58)
[2025-05-27] MEDS: EFFEXOR XR 225 MG PO (09:58)
--- NOTE | 2025-05-27 13:08 | W.PN.HOSP.TC ---
Today's Communication/Plan
-
Pending MRI results.
Outpatient echo and hematology workup
Will continue to follow.
Assessment / Plan
Assessment / Plan
Assessment - Ms. Hayden is a 74-year-old male with PMHx significant for CVA (left MCA, right parietal in 2014), paroxysmal A-fib, hypertension, hyperlipidemian and hypothyroidism is admitted to the hospital for evaluation of TIA/CVA.
Plan -
# CVA -
MRI/MRA head and neck pending
Evaluated by neurology, CTA of the brain showed right MCA M1 segment/M1-M2 territory CVA.
With significant cognitive impairment and dysarthria.
Patient and daughter insists on not missing any Eliquis doses.
Questionable Eliquis failure versus hypercoagulability.
Consider heme-onc workup and repeat echocardiogram on outpatient basis.
PT OT and speech recommended outpatient PT OT and speech therapies.
Case management consult for discharge planning.
# A-fib-
Permanent, currently rate controlled.
Continue anticoagulation with Eliquis.
[id number] score-6.
# Essential hypertension-
On losartan, continue losartan, blood pressure well-controlled.
Past permissive hypertension window.
# Hyperlipidemia-
Continue statin.
# Hypothyroidism-
Continue levothyroxine.
# DVT prophylaxis-
Eliquis
# CODE STATUS-
Full code.
Anticipated Discharge: Within 24 hours
Subjective/Interval History
-
Date of Service: May 27, 2025
Daughter is tearful, reports mom to still have dysarthria, intermittent difficulty swallowing food, confabulations, and significant weakness.
Objective Data
-
Vital Signs:
Vital Signs
Temp Pulse Resp BP Pulse Ox
98.1 F 87 18 139/66 97
05/27/25 11:46 05/27/25 11:46 05/27/25 11:46 05/27/25 11:46 05/27/25 11:46
I&O
05/26/25 05/27/25 05/28/25
06:59 06:59 06:59
Intake Total 860 / 860
Balance 860 / 860
Review of Systems
-
History Source: Patient and Family
All other systems: Reviewed and negative
Physical Exam
-
General: No Apparent Distress and Comfortable
HEENT: Moist Mucous Membranes, No Ptosis and PERRLA
Respiratory: Clear to Auscultation; Negative Wheezes, Rales, Rhonchi or Crackles
Cardiac: S1/S2 and Irregular Rhythm; Negative Murmur, Rub, JVD, HJR or Gallop
GI: Soft, Nontender, Nondistended and Normal Bowel Sounds
Genito-urinary: No Costovertebral Tender
Musculoskeletal: No Clubbing, No Cyanosis and No Edema
Neuro: AO x 3, No Motor Deficits, No Sensory Deficits, DTR's Intact & Symmetrica, Slurred Speech and Facial Droop (mild)
Psych: Calm and Confused
Data Reviewed
-
CT Scan: Image personally visualized and interpreted, Report Reviewed by me, Discussed with Physician and Discussed with Patient
MRI: Other (Pending)
Medical Tests (Nuc Med, Echo etc): Image personally visualized and interpreted, Report Reviewed by me and Discussed with Physician
Labs: Labs Reviewed by me, Discussed with Physician, Discussed with Patient and Discussed with Family
--- NOTE | 2025-05-27 14:55 | CM ---
Reviewed the chart notes and spoke with the patient and her daughter at the bedside. CM consult for PT/OT/ST received. Discussed area agencies. Referral sent to [facility] for PT/OT/ST. CM continues to be available to patient/family and is monitoring
medical plan for needs at discharge.
Plan: Discharge to home with PT/OT/ST services.
[2025-05-27] MEDS: LIPITOR 40 MG PO (17:52)
[2025-05-28] VITALS (7 sets, daily range): BP systolic 110–170; BP diastolic 56–105; PULSE 70–113
[2025-05-28] MEDS: SYNTHROID 125 MCG PO (05:29)
--- NOTE | 2025-05-28 08:00 | PTCARENOTE ---
Noted on assessment this am that pt was having some difficulty with finding words, mild aphasia. Pt's daughter (Eunice) states that the word finding difficulty is not new as well as the mild aphasia from time to time. Dr. Hightower in to see pt
and aware of aphasia this am.
[2025-05-28] MEDS: EFFEXOR XR 225 MG PO (08:50)
[2025-05-28] MEDS: COZAAR 50 MG PO (08:50)
--- NOTE | 2025-05-28 10:34 | W.PN.NEURO.1 ---
Today's Communication / Plan
-
.
Subjective/Objective
Subjective Data
Date of Service: May 28, 2025
Neurology follow-up note.
This is a 74-year-old RH woman who presented to [facility] on 05/25/2025 with expressive aphasia, dysarthria and left facial weakness.
ER VS: 138/75, 83, afebrile
Brain MRI wo jake(05/27/2025) acute right MCA territory infarct.
CTA head and neck�right MCA M1 segment/M1-M2 junction thrombus.
LDL�67, hemoglobin A1c�6.2.
Ms. Hayden reports no headaches, change in vision or strength.
I contacted [facility]'s pharmacy and confirmed that the patient has been filling Eliquis.
PMH: A-fib, HTN, DLP, hypothyroidism, JAKE
PSH: BL TKA, CTS, L ADÁN
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
All:PNC
ROS: Constitutional: Negative. Negative for chills, fever and unexpected weight change.
HENT: Negative for ear pain, hearing loss, tinnitus and trouble swallowing.
Eyes: Negative. Negative for photophobia, pain and visual disturbance.
Respiratory: Negative for cough, choking and shortness of breath.
Cardiovascular: Negative for chest pain, palpitations and leg swelling.
Gastrointestinal: Negative for abdominal pain and vomiting.
Endocrine: Negative. Negative for cold intolerance.
Genitourinary: Negative for dysuria, flank pain and urgency.
Musculoskeletal: Negative for back pain, gait problem, neck pain and neck stiffness.
Skin: Negative for rash.
Allergic/Immunologic: Negative. Negative for immunocompromised state.
Neurological: Negative for dizziness, tremors, seizures, speech difficulty, numbness and headaches.
Psychiatric/Behavioral: Negative for behavioral problems, confusion and hallucinations.
General: Well developed. In no acute distress.
Cardio: Regular rate and rhythm without murmur. Extremities are without cyanosis or edema.
Neuro:
Mental Status: Alert, oriented to person, place, month, year. Mild left hemineglect. Poor attention. Expressive dysphagia. Follows simple requests.
Cranial Nerves: Pupils are equally round and reactive to light. EOMs full. Blinks to threat right more than left. No ptosis. No nystagmus. V1-V3 intact to light touch and pinprick bilaterally, symmetric. Face symmetric. Normal hearing AU.
The palate elevated well. SCMs and traps 5/5. Tongue midline. No dysarthria.
Motor: No pronator or leg drift.
Coordination: No tremors myoclonic movements.
Gait: deferred
Assessment and Plan:
I. Acute right MCA territory. Right MCA M1 segment/M1-M2 junction thrombus. Despite adherence, DOAC failure in AF with acute stroke may occur due to genetic variability( polymorphisms affecting drug metabolism/transport (e.g., ABCB1, CES1),
malabsorption, ect.
II. PA A-Fib
III. Vascular encephalopathy.
- Blood pressure goal�normotension
- Continue aspirin 81 mg once a day
- Restart Eliquis on May 31 if no change in neuroexam
- Speech therapy
- No driving.
- Outpatient neurology follow-up
- Please recall neurology service with any questions or concerns
I personally reviewed all radiology and labs along with past medical records pertinent to current medical problems. Total time spent in patient care is 40 minutes.
Thank you for allowing us to participate in the care of this patient. Please do not hesitate to contact us with any questions or concerns.
Objective Data
Vital Signs
Temp Pulse Resp BP Pulse Ox
36.9 C 85 18 131/56 95
05/28/25 07:45 05/28/25 08:50 05/28/25 07:45 05/28/25 08:50 05/28/25 07:45
Lab Results
05/26/25 07:11
05/26/25 07:11
Sodium 137 mmol/L (135-145) 05/26/25 07:11
Potassium 4.3 mmol/L (3.5-5.1) 05/26/25 07:11
BUN 8 mg/dl (7-17) 05/26/25 07:11
Glucose 107 mg/dl (70-99) H 05/26/25 07:11
Calcium 9.3 mg/dl (8.4-10.2) 05/26/25 07:11
LDL Cholesterol, Calc 67 mg/dl 05/26/25 07:11
Vitamin B12 473 pg/ml (652-081) 05/26/25 07:11
Patient Allergies
Penicillins Allergy (Verified 05/25/25 18:21)
Rash
Vital Signs and Labs
-
Vital Signs and Labs:
Vital Signs
Temp Pulse Resp BP Pulse Ox
36.9 C 85 18 131/56 95
05/28/25 07:45 05/28/25 08:50 05/28/25 07:45 05/28/25 08:50 05/28/25 07:45
Lab Results
05/26/25 07:11
05/26/25 07:11
Sodium 137 mmol/L (135-145) 05/26/25 07:11
Potassium 4.3 mmol/L (3.5-5.1) 05/26/25 07:11
BUN 8 mg/dl (7-17) 05/26/25 07:11
Glucose 107 mg/dl (70-99) H 05/26/25 07:11
Calcium 9.3 mg/dl (8.4-10.2) 05/26/25 07:11
LDL Cholesterol, Calc 67 mg/dl 05/26/25 07:11
Vitamin B12 473 pg/ml (974-107) 05/26/25 07:11
Medications
-
Medications:
Generic Name Dose Route Start Last Admin
Trade Name Freq PRN Reason Stop Dose Admin
Acetaminophen 650 mg 05/25/25 23:52
Acetaminophen 325 Mg Tablet PO 06/22/25 23:51
Q4HPRN PRN
mild pain
Apixaban 5 mg 05/26/25 08:00 05/27/25 09:58
Apixaban (Eliquis) 5 Mg Tablet PO 06/23/25 07:59 5 mg
On Hold: 05/27/25 14:30 BID RUTHANN Administration
Atorvastatin Calcium 40 mg 05/26/25 18:00 05/27/25 17:52
Atorvastatin (Lipitor) 40 Mg Tablet PO 06/23/25 17:59 40 mg
QPM RUTHANN Administration
Levothyroxine Sodium 125 mcg 05/26/25 06:00 05/28/25 05:29
Levothyroxine 125 Mcg Tablet PO 06/23/25 05:59 125 mcg
DAILY @ 0600 RUTHANN Administration
Losartan Potassium 50 mg 05/26/25 08:00 05/28/25 08:50
Losartan 50 Mg Tablet PO 06/23/25 07:59 50 mg
DAILY RUTHANN Administration
Melatonin 10 mg 05/25/25 23:52 05/26/25 00:26
Melatonin 5 Mg Tablet PO 10 mg
HSPRN PRN Administration
sleep
Sodium Chloride 0 flush 05/25/25 23:00 05/27/25 09:58
Sodium Chloride 0.9% (Flush) Syringe IV 06/22/25 22:59 1 flush
PER PROTOCOL RUTHANN Administration
Venlafaxine HCl 225 mg 05/26/25 08:00 05/28/25 08:50
Venlafaxine 75 Mg Extended Release Capsule PO 06/23/25 07:59 225 mg
DAILY RUTHANN Administration
Home Medications
-
Home Medications
levothyroxine 125 mcg tablet (Synthroid) 125 mcg PO DAILY Thyroid 10/08/16
acetaminophen 650 mg tablet,extended release 650 mg PO [id number] PRN mild pain 05/25/25
apixaban 5 mg tablet (Eliquis) 5 mg PO BID Blood Clot Prevention/Tx 05/25/25
atorvastatin 40 mg tablet (Lipitor) 40 mg PO QPM High Cholesterol 05/25/25
losartan 50 mg tablet 50 mg PO DAILY Blood Pressure 05/25/25
melatonin 10 mg tablet 10 mg PO HSPRN PRN sleep 05/25/25
therapeutic multivitamin 1 tab PO DAILY Supplement 05/25/25
venlafaxine 225 mg tablet,extended release 24 hr 225 mg PO DAILY Mental Health/Anxiety 05/25/25
--- NOTE | 2025-05-28 11:55 | W.PN.HOSP.TC ---
Today's Communication/Plan
-
Continue holding Eliquis.
Plan for discharge.
Assessment / Plan
Assessment / Plan
Assessment - Ms. Hayden is a 74-year-old male with PMHx significant for CVA (left MCA, right parietal in 2013), paroxysmal A-fib, hypertension, hyperlipidemian and hypothyroidism is admitted to the hospital for evaluation of TIA/CVA.
Plan -
# CVA -
MRI/MRA head and neck pending
Evaluated by neurology, CTA of the brain showed right MCA M1 segment/M1-M2 territory CVA.
With significant cognitive impairment and dysarthria.
Patient and daughter insists on not missing any Eliquis doses. Eliquis is held per neurology recommendations, day 3 today.
Questionable Eliquis failure versus hypercoagulability.
Consider heme-onc workup and repeat echocardiogram on outpatient basis.
PT OT and speech recommended outpatient PT OT and speech therapies.
Case management consult for discharge planning.
# A-fib-
Permanent, currently rate controlled.
Continue anticoagulation with Eliquis.
[id number] score-6.
# Essential hypertension-
On losartan, continue losartan, blood pressure well-controlled.
Past permissive hypertension window.
# Hyperlipidemia-
Continue statin.
# Hypothyroidism-
Continue levothyroxine.
# DVT prophylaxis-
eliquis is on hold, SCD
# CODE STATUS-
Full code.
Anticipated Discharge: Today
Subjective/Interval History
-
Date of Service: May 28, 2025
No complaints today, however I noticed worsening dysarthria and hemineglect.
Objective Data
-
Vital Signs:
Vital Signs
Temp Pulse Resp BP Pulse Ox
98.4 F 86 18 110/70 96
05/28/25 11:45 05/28/25 11:45 05/28/25 11:45 05/28/25 11:45 05/28/25 11:45
I&O
05/27/25 05/28/25 05/29/25
06:59 06:59 06:59
Intake Total 860 / 860 240 / 240
Balance 860 / 860 240 / 240
Review of Systems
-
History Source: Patient
All other systems: Reviewed and negative
Physical Exam
-
General: No Apparent Distress and Comfortable
HEENT: Moist Mucous Membranes
Respiratory: Clear to Auscultation; Negative Wheezes, Rales, Rhonchi or Crackles
Cardiac: S1/S2 and Irregular Rhythm; Negative Murmur, Rub or Gallop
GI: Soft, Nontender, Nondistended and Normal Bowel Sounds
Genito-urinary: No Costovertebral Tender
Musculoskeletal: No Clubbing, No Cyanosis and No Edema
Skin: Warm
Neuro: AO x 3, No Motor Deficits, DTR's Intact & Symmetrica and Other (Mild facial droop, right and left hemineglect,)
Psych: Calm
Data Reviewed
-
Labs: Labs Reviewed by me, Discussed with Physician and Discussed with Patient
--- NOTE | 2025-05-28 12:25 | W.DCSUMMARY ---
Discharge Summary
Discharge Data
Date of Admission: 05/25/25
Date of Discharge: 05/28/25
-
Pending Results: No
Hospital Course
Assessment- Ms. Hayden is a 74-year-old male with PMHx significant for CVA (left MCA, right parietal in 2013), paroxysmal A-fib, hypertension, hyperlipidemia and hypothyroidism is admitted to the hospital for evaluation of TIA/CVA.
Clinical presentation-patient was brought to the ER due to symptoms of word finding difficulty, slurring speech and left-sided facial droop. Her symptoms resolved by the time she presented to the ED and was evaluated. In the ER her CT scan of the
brain showed no evidence for active bleeding, no acute intracranial abnormalities but open pre-existing left MCA ischemia. She has not received any thrombolytics.
Hospital course -
Discharge Plan
-
Patient Disposition: Home (Routine Discharge)
Discharge Diagnosis/Procedures: CVA, right MCA, M1-M2 territory.
Condition: Good
Diet: No restrictions
Activity: As tolerated
Driving Restrictions: No driving
Bathing Restrictions: OK to Shower
Blood Work: CBC and BMP in 1 week.
Others Tests: Echocardiogram in < 1 week
Other Services: VN, PT and OT
Activity Restrictions/Additional Instructions:
No driving,
Speech therapy, physical therapy and Occupational Therapy.
Obtain an echocardiogram and see a belly roller in the next 1 to 2 weeks.
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
Instructions: Lowering the risk of having a stroke, Medicines after an ischemic stroke
Referrals:
Ben Hanks MD [Family Provider]
Thi Alegria MD [Active, Hematology / Oncology]
Referral Note: Hypercoaguable workup, recurrent strokes,
2 weeks
Kem Flores MD [Active, Neurology]
Referral Note: 2 weeks.
Additional Discharge Medication Instructions: Your Eliquis-the blood thinner was held since 05/25 p.m. upon arrival to the ER.
You are recommended to hold taking Eliquis for 7 days.
Until today a.m., your Eliquis was held for 3 days.
So your Eliquis need to be held for 4 more days through-June 01 a.m dose.
You may resume taking your Eliquis beginning June 01 p.m.
Prescriptions:
Continued
levothyroxine [Synthroid] 125 mcg Tablet
125 mcg PO DAILY
losartan 50 mg Tablet
50 mg PO DAILY
atorvastatin [Lipitor] 40 mg Tablet
40 mg PO QPM
Theragen Tablet
1 tab PO DAILY
venlafaxine 225 mg Tablet Extended Release 24hr
225 mg PO DAILY
melatonin 10 mg Tablet
10 mg PO HSPRN PRN (Reason: sleep)
Held
Eliquis 5 mg Tablet
5 mg PO BID
Hold Instructions: Resume on 06/01/25.
take it from June 01 8pm
No Action
acetaminophen [Tylenol Arthritis] 650 mg Tablet Extended Release
650 mg PO [id number] PRN (Reason: mild pain)
Discharge Date and Time
Print Language: OMANI
--- NOTE | 2025-05-28 13:41 | PTCARENOTE ---
At 1310, Pt was trying to eat lunch, a burger, and she says that a piece got stuck in her throat. Pt was able to clear it with coughing. SpO2 was 97%, BP 170/81, HR 100. Removed burger from tray, no difficulty with swallowing thin liquids, ice cream
post episode. Made Dr. Naidu and Dr. Hightower aware, will continue to monitor, TT speech therapy for evaluation.
--- NOTE | 2025-05-28 17:00 | PTCARENOTE ---
Noted at 1615 that pt more confused, thinking she is at home in her living room, stating she wants to go upstairs to her cats. Pt's daughter at bedside and noting more confusion than what she has had in the past at home. NIHSS completed again,
scored a 2 for aphasia and slurred speech. Made Dr. Vikas Benton and Dr. Hightower aware, placing orders for CT Head, CXR, and UA. Updated family and pt of plan, will continue to monitor closely.
[2025-05-28] MEDS: LIPITOR 40 MG PO (17:52)
--- NOTE | 2025-05-28 18:00 | PTCARENOTE ---
Discussed concern for fall with ordered SCDs with Dr. Hightower. She said to place TEDs on pt and she will change order to TEDs from SCDs. Educated pt and family of purpose of TEDS.
[2025-05-28 18:22] LABS: Urine Character Cloudy (Clear)
--- NOTE | 2025-05-28 20:10 | PTOTSP ---
ST Acute Care Evaluations
Pt currently presents with clinical signs of mild oral dysphagia characterized by reduced mastication due to reduced attention to task/bolus in oral cavity, reduced bolus formation, premature swallowing of partially unmasticated solids, and diffuse
oral residue that needs strategies to clear. Pharyngeal and esophageal phases appear WFL at bedside - no overt s/s of penetration or aspiration noted at bedside.
Pt is at an elevated risk for aspiration given her acute/evolving CVA and multiple previous CVAs, her significant reduced attention to task, reduced insight into her current deficits, reduced short term memory, and reduced executive functioning that
preclude her from being able to independently recall and implement compensatory strategies to improve her swallowing safety.
Pt is also currently exhibiting at least moderate cognitive linguistic deficits (possibly more severe) characterized by deficits in the areas of visuospatial skills (L neglect), executive functioning, auditory registration of information, short term
recall, sustained attention, working memory, alternating attention, verbal recall, generative naming, and delayed recall per the MOCA (Total score: ~15/30). Per subjective clinical assessment, pt also exhibited clinical signs of impaired reasoning,
impaired problem solving, impaired judgment, and reduced insight into her current deficits.
It is also important to note that in conversation and brief screening/assessment, pt also presented with some verbal and oral perseverations, mild apraxia of speech, mild oral motor apraxia, occasional dysfluencies with speech, difficulties with
organizing thoughts and formulating sentences to communicate, phonemic paraphasias, semantic paraphasias, difficulty answering simple questions thus requiring multiple repetitions of the same question, requiring frequent redirection to task at hand,
and intact word repetition but impaired phrase repetition. It is difficult to discern to what extent these observed speech, receptive language, and expressive language deficits are new and which are from her prior multiple CVAs. Further
comprehensive speech, language, and cognitive linguistic assessments are certainly warranted at next level of care.
Recommendations:
- Downgrade diet to soft bite sized solids with thin liquids with close supervision during meals.
- Meds whole with water one at a time.
- General aspiration precautions: alternate solids/liquids, remind pt to chew all of her food.
- RIGGING SLINGER to f/u re: diet tolerance and use of compensatory strategies.
- RIGGING SLINGER to f/u re: continued cognitive linguistic tx and continued speech/language assessment (gather more info about speech/language baseline s/p last strokes).
- Highly recommend d/c to acute rehab for ongoing RIGGING SLINGER, OT, and PT tx given significant concerns regarding current cognitive dysfunction.
[2025-05-29] VITALS (7 sets, daily range): BP systolic 104–120; BP diastolic 55–67; PULSE 83
[2025-05-29] MEDS: SYNTHROID 125 MCG PO (06:10)
[2025-05-29] MEDS: EFFEXOR XR 225 MG PO (08:27)
[2025-05-29] MEDS: COZAAR 50 MG PO (08:28)
[2025-05-29 09:03] LABS: Hematocrit 32.7 % (37.0-47.0); Hemoglobin 11.3 g/dL (12.0-16.0); Mean Corp Hgb Conc. 34.6 g/dL (33.0-37.0); Mean Corpuscular Volume 100.3 fL (81.0-99.0); Platelet Count 287 10^3/uL (130-400); Red Cell Dist. Width 12.9 % (11.5-14.5)
--- NOTE | 2025-05-29 09:28 | W.PN.HOSP.TC ---
Addendum entered and electronically signed by Silvestre Fleming MD 05/29/25 21:17:
Attending Addendum-
I saw and evaluated the patient. I reviewed the resident�s note and agree with findings and plan as documented in the resident�s note. Sub: patient with dysarthria, has no complaints. Denies neuro sxs or changes to speech. Full 12 point ROS reviewed
and negative except as documented Exam: Vitals reviewed in chart GEN-NAD heart RRR lungs clear abd soft LE no edema Neuro AAO x 3 dysarthria, MS 5/5 follows commands left facial droop mild
Plan:
# Acute CVA
- MRI 05/27-Acute infarcts in the right frontal lobe with the largest focus of infarction in the transcortical anterior right frontal lobe, and smaller acute infarcts in the right frontal lobe white matter.
-Chronic transcortical infarcts in the left parietal lobe and right temporal lobe. Multiple bilateral cerebellar chronic lacunar infarcts.
- CTA of the brain-right MCA M1 segment/M1-M2 territory CVA.
- With significant dysarthria
- repeat head CT 05/28- personally reviewed-Continued evolution of the known right frontal lobe acute to subacute infarct. Further medially in the right frontal lobe, small ill-defined region of slightly increased attenuation, which may be
artifactual or secondary to perfusion changes from the adjacent infarct. Small petechial blood products are not entirely excluded
- Patient and daughter insists on not missing any Eliquis doses. Eliquis is held x 7 days per neuro
- likely Eliquis failure, continue atorvastatin
- check echocardiogram
- speech eval
- would benefit from PMnR eval/acute rehab
# A-fib
- Permanent, currently rate controlled.
- Continue anticoagulation with Eliquis for now, would transition to Coumadin possibly
- [id number] CVA on eliquis .
# Essential hypertension--stable monitor cont losartan
# Hyperlipidemia-Continue atorvastatin
# Hypothyroidism-Continue levothyroxine.
# DVT prophylaxis-
eliquis is on hold, SCD
# CODE STATUS-
Full code->DNR
ACP
Patient consented to discuss, was with JASVIR, time spent explanation of advance directives, changes in health status, patient�s health care wishes if the patient becomes unable to make health decisions, goals of care, code status, and prognosis 'im a
no resuscitation' Son in Law-verified 'that is what she has always said'- 16 minutes
Time spent coordinating care, review of plan of care with resident, personally reviewed previous records in EMR, med rec, labs, radiology, d/w nursing, family total time documented is exclusive of any additional time listed that was spent in advance
care planning discussion -�52 minutes
Original Note:
Today's Communication/Plan
-
f/u physiatry, CM
f/u neuro Q about aspirin and c/f Eliquis failure
f/u echo
PT/Speech rec acute rehab
Assessment / Plan
Assessment / Plan
Assessment - Ms. Hayden is a 74-year-old male with PMHx significant for CVA (left MCA, right parietal in 2013), paroxysmal A-fib on Eliquis, hypertension, hyperlipidemia, and hypothyroidism who presented with facial droop and slurred speech
found to have a right MCA territory CVA.
Plan -
#Right MCA CVA
#Dysarthria
#C/f Aspiration
Brain MRI: Acute infarcts in the right frontal lobe with the largest focus of infarction in the transcortical anterior right frontal lobe, and smaller acute infarcts in the right frontal lobe white matter. Chronic senescent changes. Chronic
transcortical infarcts in the left parietal lobe and right temporal lobe. Multiple bilateral cerebellar chronic lacunar infarcts. CTA of the brain showed right MCA M1 segment/M1-M2 territory CVA. With significant cognitive impairment and dysarthria.
With significant cognitive impairment and dysarthria. Patient and daughter insists on not missing any Eliquis doses. 05/08, had an episode of aspiration and confusion. Repeat Head CT: Continued evolution of the known right frontal lobe acute to
subacute infarct. CXR unremarkable.
- Neuro following
--Recs holding Eliquis until 06/01/25
---F/u about possible Eliquis failure and aspirin -- awaiting Dr. Flores's response
- F/u echocardiogram.
- Reevaluation by PT/OT/speech after 05/28 aspiration and confusion
--Rec acute rehab
--Downgrade diet to soft bite sized solids with thin liquids with close supervision during meals
--Meds whole with water one at a time.
--General aspiration precautions: alternate solids/liquids, remind pt to chew all of her food
- Physiatry consulted
- Case management consult for discharge planning, ideally to [facility]
#A-fib-
On Eliquis. Permanent, currently rate controlled. [id number] score-6.
- Resume Eliquis 06/01 per neuro
#Essential hypertension-
- Home losartan 50mg
#Hyperlipidemia-
- Home Lipitor 40mg
#Hypothyroidism-
- Home levothyroxine 125mcq daily
DVT prophylaxis- eliquis is on hold, SCDs
CODE STATUS- Full
Anticipated Discharge: Within 24 hours (pending placement to [facility]/skilled rehab)
Subjective/Interval History
-
Date of Service: May 29, 2025
- Eager to go home today. Reports her daughter didn't pick her up yesterday; called daughter to confirm, however, she reported that her mom had an episode of aspiration at lunch and hence, discharge was cancelled. Head CT, CXR, swallow study, and PT
re-eval ordered. Physiatry and CM consulted for [facility].
Objective Data
-
Labs:
Laboratory Results
05/29/25
08:34
WBC 10.2
Hgb 11.3 L
Hct 32.7 L
Plt Count 287
Sodium Pending
Potassium Pending
Chloride Pending
Carbon Dioxide Pending
BUN Pending
Creatinine Pending
Glucose Pending
Calcium Pending
Vital Signs:
Vital Signs
Temp Pulse Resp BP Pulse Ox
98.6 F 69 18 117/67 95
05/29/25 07:35 05/29/25 08:28 05/29/25 07:35 05/29/25 08:28 05/29/25 07:35
I&O
05/28/25 05/29/25 05/30/25
06:59 06:59 06:59
Intake Total 240 / 240 1140 / 1140
Balance 240 / 240 1140 / 1140
Review of Systems
-
History Source: Patient
All other systems: Reviewed and negative
Constitutional: Reports Sleep Disturbance
Neuro: Reports Weakness
Physical Exam
-
General: Well Developed, Well Nourished, No Apparent Distress, Comfortable, Conversant and Slurred Speech (intermittently)
HEENT: Normocephalic, Atraumatic, Moist Mucous Membranes and PERRLA
Respiratory: Clear to Auscultation
Cardiac: Regular Rhythm and S1/S2
GI: Soft, Nontender and Nondistended
Skin: Warm and Dry
Neuro: AO x 3, Nonfocal/Grossly Intact and Slurred Speech (intermittently)
Psych: Agitated and Anxious
[2025-05-29 09:48] LABS: Blood Urea Nitrogen 9 mg/dl (7-17); Calcium 9.5 mg/dl (8.4-10.2); Carbon Dioxide 29 mmol/L (22-30); Chloride 102 mmol/L (98-107); Estimated Creatinine Clearance 75 ml/min; Glucose 130 mg/dl (70-99); Potassium 4.4 mmol/L (3.5-5.1); Sodium 138 mmol/L (135-145); eGFR > 60.00
--- NOTE | 2025-05-29 12:42 | CON.MD ---
Consultation - Medical
-
Chief Complaint:�Stroke
�
History of Present Illness:�74-year-old right-handed female with PMH (as below) presented to [facility] on 05/25/2025 with slurred words and left facial droop. She has a history of a left MCA CVA in 2013. Initial CT of the head with no
acute intracranial abnormality with left MCA territory old infarct and cannot exclude an old small right parietal lobe infarct. Not a candidate for TNK or IAT with Eliquis use. Per son symptoms started at 2100 the night before and continued into
05/26.
05/27 MRI of the brain: Acute infarcts in the right frontal lobe with the largest focus of infarction in the transcortical anterior right frontal lobe, and smaller acute infarcts in the right frontal lobe white matter. Chronic senescent changes.
Chronic transcortical infarcts in the left parietal lobe and right temporal lobe. Multiple bilateral cerebellar chronic lacunar infarcts.
�
Past Medical History:�Left MCA CVA 2013, HTN, HLD, hypothyroidism, paroxysmal A-fib, prediabetes, anxiety, smoking history
Procedure History:�Patent ductus arteriosus repair 1954, , cholecystectomy, throat polyp surgeries, hip replacement, bilateral knee replacement, right hand carpal tunnel surgery.
Family History:�None pertinent
�
Social History:�
Functional Level Premorbidly:�Independent with all activities, except for family doing cooking
Functional Level Currently:�Min assist grooming, supervision bed mobility, min assist ambulating 120 feet without device. Supervision for transfers.
�
Tobacco:�45-year 1-1/2 pack/day, quit at age 64
Alcohol:�Occasional 2�3 times a month
Drug use:�Denies�
�
Lives with:�Daughter, son-in-law
24-hour assistance available:�Possibly
Number of floors:�Two-story condo
# steps to enter:�3
# steps to second floor: 12�14
Potential First floor set up:�No
Driving:�Yes
Occupation:�Retired
�
�
Allergies:�
Allergy/AdvReac Type Severity Reaction Status Date / Time
Penicillins Allergy Rash Verified 05/25/25 18:21
�
Review of Systems:�
Constitutional: (x) abNormal _fatigue
Eye: (x) Normal _
Ear/Nose/Throat: (x) Normal _
Respiratory: (x) Normal _
Cardiovascular: (x) Normal _
Gastrointestinal: (x) Normal _
Genitourinary: (x) Normal _
Musculoskeletal: (x) Normal _
Integumentary: (x) Normal _
Neurologic: (x) abNormal _stroke with difficulty speaking, left facial droop
Psychiatric: (x) Normal _
Endocrine: (x) Normal _
Hematologic/Lymphatic: (x) Normal _
Allergic/Immunologic: (x) Normal _
�
Medications:�
Active Current Visit Medication List
Category Date Time Status
Acetaminophen [Tylenol] Med 05/25/25 23:52 Active
650 mg PO Q4HPRN PRN
Apixaban [Eliquis] Med 05/26/25 08:00 Hold
5 mg PO BID
Atorvastatin [Lipitor] Med 05/26/25 18:00 Active
40 mg PO QPM
Flush (0.9% Sodium Chloride) [Flush (Nss)] Med 05/25/25 23:00 Active
See Dose Instructions IV PER PROTOCOL
Levothyroxine [Synthroid] Med 05/26/25 06:00 Active
125 mcg PO DAILY @ 0600
Losartan [Cozaar] Med 05/26/25 08:00 Active
50 mg PO DAILY
Melatonin Med 05/25/25 23:52 Active
10 mg PO HSPRN PRN
Venlafaxine Extended Release [Effexor Xr] Med 05/26/25 08:00 Active
225 mg PO DAILY
�
Vitals:�
Temp Pulse Resp BP Pulse Ox
98.4 F 83 18 113/62 97
05/29/25 11:15 05/29/25 11:15 05/29/25 11:15 05/29/25 11:15 05/29/25 11:15
Height 5 ft 2 in
Actual Weight 73.51 kg
Body Mass Index (BMI) 29.7
�
Physical Exam:�
General Appearance/Observation: Well-developed, well-nourished female in no apparent distress.�
Pain/Comfort Assessment: Denies�
Mood/Affect: Appropriate�
�
Integumentary/Operative Site:�No lesions noted during course of exam
�
Eyes: Conjunctiva/Lids: normal��� Pupils: pupils equal round and reactive to light and Accommodation
Ears/Nose/Throat: oral mucosa moist, throat clear.������������ Lips/Teeth/Gums: normal
Neck: No muscle spasm or tenderness�
Cardiovascular: Heart: regular, no murmur�
Pulses: dorsalis pedis 2+ bilaterally�
Respiratory: Respiratory Effort/Chest Expansion: normal������ Auscultation: Clear to auscultation bilaterally
Gastrointestinal: abdomen not tender, no distension, normal abdominal bowel sounds
Genitourinary: No Garcia�
Rectal Exam: Deferred�
Extremities:�Edema: None�Cyanosis: None�Trophic�changes: None
�
Neurology Exam:
Orientation: Alert, Oriented to self, Time, Place�
Memory: Intact for recent medical concerns
Repetition: Impaired
Comprehension: Intact
Two step command: Mostly intact, limited with aphasia at times
Naming: Intact
-Incorrectly read clock across the room as 745 instead of 645.
Cranial Nerves:
�� CNII:�Pupillary light reflex: Intact���Visual Field: Intact
�� CN III, IV, : Extraocular muscles: Intact�
�� CN V:�Facial Sensation�at�Forehead: Intact,�Maxilla: Intact,�Mandible: Intact
�� CN VII:�Facial movement: Left facial weakness
�� CN VIII:�Hearing: Normal
�� CN IX/X:�Speech & swallow: Mild expressive and receptive aphasia,�Position of Uvula: Midline
�� CN XI:�Shoulder shrug: Symmetric
�� CN XII:�Tongue protrusion: Midline
Sensory:
�� Light touch: Intact in bilateral upper and lower extremities, no extinction to double simultaneous stimulation
�
Reflexes:
�� Biceps: 2+ bilaterally
�� Brachioradialis: 2+ bilaterally
�� Triceps: 2+ bilaterally
�� Patellar: 2+ left, 0 right
�� Achilles: 0 bilaterally
�� Babinski: Down going bilaterally
�� Clonus: None
�� Farhat: Negative bilaterally�
Cerebellar: Dysmetria/Ataxia: None�
Musculoskeletal:Motor: (Manual muscle scale 0-5)�
Muscle SA EF WE EE FF FA HF KE DF EHL PF
Right� 4 5 5 5 5 4 4 5 5 5 5
Left 4 5 5 4 5 3 4 5 5 5 5
�
Tone: Normal in all extremities�
Range of Motion: Passively within functional limits in all extremities�
�
Lab Results
Laboratory Data
05/29/25 08:34
05/29/25 08:34
Total Bilirubin 0.8 mg/dl (0.2-1.3) 05/26/25 07:11
AST 22 U/L (14-36) 05/26/25 07:11
ALT 19 U/L (0-35) 05/26/25 07:11
Alkaline Phosphatase 76 U/L (38-126) 05/26/25 07:11
Total Protein 6.6 g/dl (6.3-8.2) 05/26/25 07:11
Albumin 4.2 g/dl (3.5-5.0) 05/26/25 07:11
�
Diagnostic Results:�as per HPI�
�
Assessment
74 y/o R-handed F PMH (Left MCA CVA 2013, HTN, HLD, hypothyroidism, paroxysmal A-fib, prediabetes, anxiety, smoking history) with 05/25/2025 slurred speech and left facial droop from acute infarcts in the right frontal lobe resulting in ADL, amatory,
and speech dysfunction.
Plan�
PM&R�PT/OT to increase independence with ADLs, improve balance, coordination, endurance, strength, mobility, community reintegration, decreased burden of care on others and family education.�
�
CVA: Secondary prophylaxis with Eliquis, statin, and blood pressure control (SBP less than 180 and diastolic less than 100 to participate with therapy for ischemic stroke). Continue to monitor neurologic status.�
Left facial weakness: Noted
Receptive/expressive aphasia: Speech
Dysphagia: speech, oral care protocol, aspiration precautions.� Advance diet soft and bite-size diet as tolerated.�
HTN: Losartan 50 mg daily, monitor closely�
HLD: Statin�
Atrial fibrillation: Apixaban anticoagulation and no rate control medications.������������������������������������������
Hypothyroidism: levothyroxine�
Macrocytic anemia: 11.3 from 11 from 11. No active bleeding. Monitor.� B12 and folate normal.
�
Anxiety: Monitor mood, adjust venlafaxine as needed.� Melatonin as needed for sleep
Skin: monitor for pressure sores/rashes/lesions.�
Pain: acetaminophen as needed.�
Bowel: Colace and Senna, PRN bisacodyl.�
Bladder: Time void, PVRs, PRN straight cath.�
DVT Prophylaxis: Mechanical and Eliquis.�
Pulmonary: Incentive spirometry�
Safety: Continue to reinforce assistance with all transfers.�
Code Status:� Full code
Dispo�(date/plan/equipment needs): Home with family care.� Social history reviewed.�
Functional and Medical Goals:�Modified Independent with ADL�s, ambulation, transfers�
Discharge Destination:�Acute inpatient rehabilitation at
�
A total of 60 minutes were spent with the patient preparing for the evaluation, obtaining history, performing examination and evaluation, counseling, data review, case management, care coordination, expediter service order, and EMR documentation.
�
Thank you for allowing me to care for your patient. Please contact me with any questions or concerns.
Consultation
-
Date/Time Consultation Requested: 05/28/25
Date/Time Consultation Performed: 05/29/25
Requesting Provider: Dr. Eri Villa
Performing Provider: Dr. Bonifacio Van Why
Reason for Consultation: Stroke
[2025-05-29] MEDS: LIPITOR 40 MG PO (17:02)
[2025-05-30] MEDS: SYNTHROID 125 MCG PO (05:26)
[2025-05-30 07:00] VITALS: BP 109/56
[2025-05-30 08:05] LABS: Hematocrit 32.0 % (37.0-47.0); Hemoglobin 11.0 g/dL (12.0-16.0); Mean Corp Hgb Conc. 34.4 g/dL (33.0-37.0); Mean Corpuscular Volume 100.3 fL (81.0-99.0); Nucleated Red Blood Cells % 0 %; Platelet Count 296 10^3/uL (130-400); Red Cell Dist. Width 12.7 % (11.5-14.5)
[2025-05-30 08:14] LABS: ALT (SGPT) 19 U/L (0-35); AST (SGOT) 20 U/L (14-36); Albumin 4.1 g/dl (3.5-5.0); Alkaline Phosphatase 73 U/L (38-126); Blood Urea Nitrogen 12 mg/dl (7-17); Calcium 9.4 mg/dl (8.4-10.2); Carbon Dioxide 29 mmol/L (22-30); Chloride 103 mmol/L (98-107); Estimated Creatinine Clearance 75 ml/min; Glucose 129 mg/dl (70-99); Potassium 4.4 mmol/L (3.5-5.1); Sodium 137 mmol/L (135-145); Total Protein 6.7 g/dl (6.3-8.2); eGFR > 60.00
[2025-05-30] MEDS: EFFEXOR XR 225 MG PO (09:11)
--- NOTE | 2025-05-30 10:08 | W.PN.HOSP.TC ---
Addendum entered and electronically signed by Silvestre Fleming MD 05/31/25 00:04:
Attending Addendum-
I saw and evaluated the patient. I reviewed the resident�s note and agree with findings and plan as documented in the resident�s note. Sub: patient with less dysarthria today, has no complaints. Seen with daughter present, Denies neuro sxs. Full 12
point ROS reviewed and negative except as documented Exam: Vitals reviewed in chart GEN-NAD heart RRR lungs clear abd soft LE no edema Neuro AAO x 3 intermittent dysarthria, MS 5/5 follows commands left facial droop mild
Plan:
# Acute CVA
- MRI 05/27-Acute infarcts in the right frontal lobe with the largest focus of infarction in the transcortical anterior right frontal lobe, and smaller acute infarcts in the right frontal lobe white matter.
-Chronic transcortical infarcts in the left parietal lobe and right temporal lobe. Multiple bilateral cerebellar chronic lacunar infarcts.
- CTA of the brain-right MCA M1 segment/M1-M2 territory CVA.
- With significant dysarthria
- repeat head CT 05/28- personally reviewed-Continued evolution of the known right frontal lobe acute to subacute infarct. Further medially in the right frontal lobe, small ill-defined region of slightly increased attenuation, which may be
artifactual or secondary to perfusion changes from the adjacent infarct. Small petechial blood products are not entirely excluded
- Patient and daughter insists on not missing any Eliquis doses. Eliquis is held x 7 days per neuro
- per neuro not Eliquis failure, repeat head ct 05/30-Unchanged subacute right frontal infarct. Unchanged small area of slightly increased attenuation in the anterior right frontal lobe adjacent to the infarct, most likely related to perfusion
anomaly secondary to the infarct. No acute intracranial hemorrhage is identified at noncontrast CT
- restart eliquis this PM
- continue atorvastatin
- echocardiogram 05/29-
1. Normal biventricular size and function without regional wall motion abnormalities.
2. LVEF is 60-65% by visual estimation. Normal diastolic function.
3. No significant valvular disease.
- speech therapy
- DC to acute rehab
# A-fib
- Permanent, currently rate controlled.
- Continue anticoagulation with Eliquis
- [id number] score-6
# Essential hypertension--stable monitor cont losartan
# Hyperlipidemia-Continue atorvastatin
# Hypothyroidism-Continue levothyroxine.
# DVT prophylaxis-
eliquis to be restarted this evening
# CODE STATUS-
Full code->DNR
Dispo DC to [facility]
Time spent coordinating care, DC planning, review of DC plan of care with resident, transition of care, review of records, med rec/scripts sent electronically, consults, notes, d/w consultants, nursing, family, and CM� 32 mins >50% of this time was
devoted to counseling and coordination of care
Original Note:
Today's Communication/Plan
-
Repeat Head CT stable
Resume Eliquis
DC to [facility]
Assessment / Plan
Assessment / Plan
Assessment - Ms. Hayden is a 74-year-old male with PMHx significant for CVA (left MCA, right parietal in 2013), paroxysmal A-fib on Eliquis, hypertension, hyperlipidemia, and hypothyroidism who presented with facial droop and slurred speech
found to have a right MCA territory CVA.
05/[address]: Continued evolution of the known right frontal lobe acute to subacute infarct.
Further medially in the right frontal lobe, small ill-defined region of slightly increased attenuation, which may be artifactual or secondary to perfusion changes from the adjacent infarct. Small petechial blood products are not entirely excluded
and continued imaging follow-up can be performed.
05/[address]: Unchanged subacute right frontal infarct. Unchanged small area of slightly increased attenuation in the anterior right frontal lobe adjacent to the infarct, most likely related to perfusion anomaly secondary to the infarct. No acute
intracranial hemorrhage is identified at noncontrast CT.
Plan -
#Right MCA CVA
#Dysarthria
#C/f Aspiration
Brain MRI: Acute infarcts in the right frontal lobe with the largest focus of infarction in the transcortical anterior right frontal lobe, and smaller acute infarcts in the right frontal lobe white matter. Chronic senescent changes. Chronic
transcortical infarcts in the left parietal lobe and right temporal lobe. Multiple bilateral cerebellar chronic lacunar infarcts. CTA of the brain showed right MCA M1 segment/M1-M2 territory CVA. With significant cognitive impairment and dysarthria.
With significant cognitive impairment and dysarthria. Patient and daughter insists on not missing any Eliquis doses. 05/08, had an episode of aspiration and confusion. Repeat Head CT: Continued evolution of the known right frontal lobe acute to
subacute infarct. CXR unremarkable.
- Neuro following
--Recs holding Eliquis until 05/31/25
---Per neuro, no aspirin indicated; ok to resume Eliquis today 05/31 (vs 06/01) given repeat Head CT (above) is stable
---DC to [facility]
- Echo 05/29 with LVEF 60-65%; unremarkable.
- Reevaluation by PT/OT/speech after 05/28 aspiration and confusion
--Rec acute rehab
--Downgrade diet to soft bite sized solids with thin liquids with close supervision during meals
--Meds whole with water one at a time.
--General aspiration precautions: alternate solids/liquids, remind pt to chew all of her food
- Physiatry rec acute inpt rehab
#A-fib-
On Eliquis. Permanent, currently rate controlled. [id number] score-6.
- Resume Eliquis today, starting with pm dose
#Essential hypertension-
- Home losartan 50mg
#Hyperlipidemia-
- Home Lipitor 40mg
#Hypothyroidism-
- Home levothyroxine 125mcq daily
DVT prophylaxis- Eliquis
CODE STATUS- Full
Dispo- [facility]
Anticipated Discharge: Today
Subjective/Interval History
-
Date of Service: May 30, 2025
- Speech is a bit improved today, AxO3. NAEON. Tolerating new diet well.
- DIL bedside, made aware of plan for [facility]
Objective Data
-
Labs:
Laboratory Results
05/30/25
07:48
WBC 7.3
Hgb 11.0 L
Hct 32.0 L
Plt Count 296
Sodium 137
Potassium 4.4
Chloride 103
Carbon Dioxide 29
BUN 12
Creatinine 0.5 L
Glucose 129 H
Calcium 9.4
Total Bilirubin 0.6
AST 20
ALT 19
Alkaline Phosphatase 73
Vital Signs:
Vital Signs
Temp Pulse Resp BP Pulse Ox
98.8 F 79 16 109/56 98
05/30/25 07:00 05/30/25 07:00 05/30/25 07:00 05/30/25 07:00 05/30/25 07:00
I&O
05/29/25 05/30/25 05/31/25
06:59 06:59 06:59
Intake Total 1140 / 1140 1800 / 1800
Balance 1140 / 1140 1800 / 1800
[2025-05-30 11:02] VITALS: BP 136/59
--- NOTE | 2025-05-30 11:23 | PN.CDI ---
CDI
- -
CDI:
Physician Documentation Request
Admit Date: 05/29/25 08:01
Dear Doctor Lonnie,
Please review the following and provide your response in the progress notes.
Clinical Indicators:
Pt admitted with acute CVA.
05/29 Echocardiogram: Study Information:
Image quality for this study is very technically difficult.
Rhythm Sinus.
05/29 Progress Note: ' Assessment - Ms. Hayden is a 74-year-old male with PMHx significant for CVA (left MCA, right parietal in 2013), paroxysmal A-fib on Eliquis......
#A-fib- On Eliquis. Permanent, currently rate controlled.'
Vital signs from 05/26 - 05/29 notes Rhythm: Sinus Rhythm
If possible, please provide further specificity regarding atrial fibrillation, such as:
Paroxysmal atrial fibrillation - terminates spontaneously or with intervention within 7 days of onset
Permanent atrial fibrillation - when a decision has been made to accept the presence of AF and there is no further attempt to restore or maintain sinus rhythm
Other - please specify
Use of terms such as suspected, likely, concern for, or probable (associated with a specific diagnosis that is being evaluated, monitored, or treated as if it exists) are acceptable and can be coded in the inpatient setting, when documented at the
time of discharge.
Thank you,
Brandy Polk RN, BSN
CDI Specialist
[place] [facility]
Please use your independent medical judgment in providing your response.
--- NOTE | 2025-05-30 11:36 | CM ---
Met with pt and daughter Maday today. Authorization obtained for acute rehab at [facility]. Bed is available this afternoon.
Pt for repeat head CT prior to resumption of Eliquis. Dtr and pt made aware of pending Head CT.
Authorization approval # [id number] for acute rehab at [facility] NPI#[id number]
Begin 05/30/25
Review date: 06/02/[address] Bonifacio Gallagher NPI# [id number]
Plan: [facility]
--- NOTE | 2025-05-30 12:04 | W.PN.NEURO.1 ---
Today's Communication / Plan
-
OK to restart Apixaban this PM, based on size of current lesion
rehab evaluations and treatment
goal of normotension
continued atorvastatin
Neuro Assessment/Plan
Assessment
I. Acute right MCA territory. Right MCA M1 segment/M1-M2 junction thrombus. Despite adherence, DOAC failure in AF with acute stroke may occur due to genetic variability( polymorphisms affecting drug metabolism/transport (e.g., ABCB1, CES1),
malabsorption, ect.
II. PA A-Fib
III. Vascular encephalopathy.
Plan
OK to restart Apixaban this PM, based on size of current lesion
rehab evaluations and treatment
goal of normotension
continued atorvastatin
Will follow as needed.
Subjective/Objective
Subjective Data
Date of Service: May 30, 2025
Objective Data
Vital Signs
Temp Pulse Resp BP Pulse Ox
36.2 C 88 16 136/59 96
05/30/25 11:02 05/30/25 11:02 05/30/25 11:02 05/30/25 11:02 05/30/25 11:02
Lab Results
05/30/25 07:48
05/30/25 07:48
Sodium 137 mmol/L (135-145) 05/30/25 07:48
Potassium 4.4 mmol/L (3.5-5.1) 05/30/25 07:48
BUN 12 mg/dl (7-17) 05/30/25 07:48
Glucose 129 mg/dl (70-99) H 05/30/25 07:48
Calcium 9.4 mg/dl (8.4-10.2) 05/30/25 07:48
LDL Cholesterol, Calc 67 mg/dl 05/26/25 07:11
Vitamin B12 473 pg/ml (003-931) 05/26/25 07:11
Patient Allergies
Penicillins Allergy (Verified 05/25/25 18:21)
Rash
Data Reviewed
-
Labs: Report Reviewed
Reviewed with: Physician
Old Records: Summarized
Past History
Past History
ED Past Medical History: CVA
ED Past Surgical History: Other
Social History
Tobacco: Smoker
Alcohol: None
Personal: Single
Living: alone
Family History
Family History: Other
Medications
-
Medications:
Generic Name Dose Route Start Last Admin
Trade Name Freq PRN Reason Stop Dose Admin
Acetaminophen 650 mg 05/25/25 23:52
Acetaminophen 325 Mg Tablet PO 06/22/25 23:51
Q4HPRN PRN
mild pain
Apixaban 5 mg 05/26/25 08:00 05/27/25 09:58
Apixaban (Eliquis) 5 Mg Tablet PO 06/23/25 07:59 5 mg
On Hold: 05/27/25 14:30 BID RUTHANN Administration
Atorvastatin Calcium 40 mg 05/26/25 18:00 05/29/25 17:02
Atorvastatin (Lipitor) 40 Mg Tablet PO 06/23/25 17:59 40 mg
QPM RUTHANN Administration
Levothyroxine Sodium 125 mcg 05/26/25 06:00 05/30/25 05:26
Levothyroxine 125 Mcg Tablet PO 06/23/25 05:59 125 mcg
DAILY @ 0600 RUTHANN Administration
Losartan Potassium 50 mg 05/26/25 08:00 05/29/25 08:28
Losartan 50 Mg Tablet PO 06/23/25 07:59 50 mg
DAILY RUTHANN Administration
Melatonin 10 mg 05/25/25 23:52 05/26/25 00:26
Melatonin 5 Mg Tablet PO 10 mg
HSPRN PRN Administration
sleep
Sodium Chloride 0 flush 05/25/25 23:00 05/27/25 09:58
Sodium Chloride 0.9% (Flush) Syringe IV 06/22/25 22:59 1 flush
PER PROTOCOL RUTHANN Administration
Venlafaxine HCl 225 mg 05/26/25 08:00 05/30/25 09:11
Venlafaxine 75 Mg Extended Release Capsule PO 06/23/25 07:59 225 mg
DAILY RUTHANN Administration
[2025-05-30] MEDS: COZAAR 50 MG PO (12:41)
--- NOTE | 2025-05-30 13:20 | W.DCSUMMARY ---
Addendum entered and electronically signed by Silvestre Fleming MD 05/31/25 00:05:
Read, reviewed, and agree. See same day progress note for additional details.
Mauri Fleming MD
Original Note:
Documented by User: Shannon Ashford MD, Resident 05/30/25 15:23
Discharge Summary
Discharge Data
Date of Admission: 05/25/25
Date of Discharge: 05/30/25
-
Pending Results: No
Hospital Course
Discharging Physician : Shannon Ashford
Disposition : [facility]
Principal Discharge diagnosis : Acute CVA of the right MCA territory. Right MCA M1 segment/M1-M2 junction thrombus.
Chronic Discharge diagnosis : CVA (left MCA, right parietal in 2013), paroxysmal A-fib on Eliquis, hypertension, hyperlipidemia, and hypothyroidism
Hospital Course : Ms. Hayden is a 74-year-old male with PMH as above who presented with subtle left facial droop and slurred speech. CT head at that time showed old MCA territory infarct with no acute abnormalities noted. Neuro was consulted
and she was admitted for further evaluation and management. She was not a candidate for TNK/IAT due to apixaban usage in the past 12 hours (she has not missed any doses) and low NIHSS. Head/Neck CTA the next day (as below) showed right MCA territory
CVA and right MCA M1 segment/M1-M2 junction thrombus. This was further confirmed on MRI. Per Neuro, her Eliquis was held with plan to resume after 7 days on 05/31 with outpatient follow-up and echo. However, on 05/28, Ms. Hayden reported an
episode of aspiration to her daughter while eating lunch and this raised concern that she is having dysphagia as a new sequela of her CVA. Ms. Hayden did not report any other new symptoms such as dizziness, confusion, difficulty chewing, N/V,
or syncope at this time. Her discharge was cancelled, and speech, PT/OT were reconsulted. Speech recommended IDDS 6 soft and bite sized diet and alongside PT/OT recommended acute inpatient rehab. Physiatry was consulted and agreed with placement to
[facility] for ongoing SP/PT/OT. Over the course of the next few days, she continued to tolerate her new diet well, without risk of aspiration, and speech slowly improved. Her echo showed LVEF 60-65% and was unremarkable for abnormalities. She did not
have any acute episodes of confusion during this time either. On 05/30, she was approved for discharge to [facility] and in conversation with neuro and after a stable repeat Head CT, her Eliquis was resumed prior to discharge to [facility] with outpatient
follow-up with neurology, hem/onc for Eliquis efficacy, and PCP.
Important imaging findings :
05/[address]: Unchanged subacute right frontal infarct. Unchanged small area of slightly increased attenuation in the anterior right frontal lobe adjacent to the infarct, most likely related to perfusion anomaly secondary to the infarct. No acute
intracranial hemorrhage is identified at noncontrast CT.
05/29 Echo:
1. Normal biventricular size and function without regional wall motion abnormalities.
2. LVEF is 60-65% by visual estimation. Normal diastolic function.
3. No significant valvular disease.
4. Normal estimated PASP at 28 mmHg.
5. No prior study available for comparison.
05/28 CXR: No acute cardiopulmonary process.
05/[address]: Continued evolution of the known right frontal lobe acute to subacute infarct.
Further medially in the right frontal lobe, small ill-defined region of slightly increased attenuation, which may be artifactual or secondary to perfusion changes from the adjacent infarct. Small petechial blood products are not entirely excluded
and continued imaging follow-up can be performed.
05/27 MRI of the brain: Acute infarcts in the right frontal lobe with the largest focus of infarction in the transcortical anterior right frontal lobe, and smaller acute infarcts in the right frontal lobe white matter. Chronic senescent changes.
Chronic transcortical infarcts in the left parietal lobe and right temporal lobe. Multiple bilateral cerebellar chronic lacunar infarcts.
05/26 Head/Neck CTA: Small filling defect consistent with thrombus at the peripheral right MCA M1 segment/M1-M2 junction. Acute ischemic infarct involving the right lateral anterior-anterior frontal lobe.
05/[address]: No acute intracranial abnormality. Left MCA territory old infarct again seen. Cannot exclude small old right parietal lobe infarct.
Discharge Plan
-
Patient Disposition: Acute Rehab Facility
Discharge Diagnosis/Procedures: CVA, right MCA, M1-M2 territory.
Condition: Good
Diet: Other diet
Additional Diets: IDDSI 6 Soft & Bite Size
Activity: As tolerated
Driving Restrictions: No driving
Bathing Restrictions: OK to Shower
Blood Work: CBC and BMP in 1 week after discharge.
Other Services: VN, PT and OT
Activity Restrictions/Additional Instructions:
No driving,
Speech therapy, physical therapy and Occupational Therapy.
Follow-up with your diving fisher, neurologist and primary care physician within 1 to 2 weeks of discharge.
Instructions: Lowering the risk of having a stroke, Medicines after an ischemic stroke
Referrals:
Ben Hanks MD [Family Provider] - in one to two weeks
Referral Note: Eliquis resumed, f/u in case of hypercoag studies re: Eliquis efficacy
Thi Alegria MD [Active, Hematology / Oncology]
Referral Note: Hypercoaguable workup, recurrent strokes,
2 weeks
Kem Flores MD [Active, Neurology] - in two to three weeks
Referral Note: 2 weeks.
Additional Discharge Medication Instructions: Resume Eliquis starting with pm dose tonight, 05/30
Prescriptions:
Continued
levothyroxine [Synthroid] 125 mcg Tablet
125 mcg PO DAILY
losartan 50 mg Tablet
50 mg PO DAILY
atorvastatin [Lipitor] 40 mg Tablet
40 mg PO QPM
therapeutic multivitamin Tablet
1 tab PO DAILY
acetaminophen 650 mg Tablet Extended Release
650 mg PO [id number] PRN (Reason: mild pain)
venlafaxine 225 mg Tablet Extended Release 24hr
225 mg PO DAILY
melatonin 10 mg Tablet
10 mg PO HSPRN PRN (Reason: sleep)
Eliquis 5 mg Tablet
5 mg PO BID
Discharge Orders:
Discharge Patient (As Directed); Ordered 05/30/25
Ordered By: Shannon Ashford
Discharge Date and Time
Discharge Date/Time: 05/30/25 16:32
Print Language: ANDORRAN

Documented by User: Silvestre Fleming MD 05/31/25 00:00
Discharge Summary
Discharge Data
Date of Admission: 05/29/25
Date of Discharge: 05/31/25
Discharge Plan
-
Patient Disposition: Acute Rehab Facility
Discharge Diagnosis/Procedures: CVA, right MCA, M1-M2 territory.
Condition: Good
Diet: Other diet
Additional Diets: IDDSI 6 Soft & Bite Size
Activity: As tolerated
Driving Restrictions: No driving
Bathing Restrictions: OK to Shower
Blood Work: CBC and BMP in 1 week after discharge.
Other Services: VN, PT and OT
Activity Restrictions/Additional Instructions:
No driving,
Speech therapy, physical therapy and Occupational Therapy.
Follow-up with your diving fisher, neurologist and primary care physician within 1 to 2 weeks of discharge.
Instructions: Lowering the risk of having a stroke, Medicines after an ischemic stroke
Referrals:
Ben Hanks MD [Family Provider] - in one to two weeks
Referral Note: Eliquis resumed, f/u in case of hypercoag studies re: Eliquis efficacy
Thi Alegria MD [Active, Hematology / Oncology]
Referral Note: Hypercoaguable workup, recurrent strokes,
2 weeks
Kem Flores MD [Active, Neurology] - in two to three weeks
Referral Note: 2 weeks.
Additional Discharge Medication Instructions: Resume Eliquis starting with pm dose tonight, 05/30
Prescriptions:
Continued
levothyroxine [Synthroid] 125 mcg Tablet
125 mcg PO DAILY
losartan 50 mg Tablet
50 mg PO DAILY
atorvastatin [Lipitor] 40 mg Tablet
40 mg PO QPM
therapeutic multivitamin Tablet
1 tab PO DAILY
acetaminophen 650 mg Tablet Extended Release
650 mg PO [id number] PRN (Reason: mild pain)
venlafaxine 225 mg Tablet Extended Release 24hr
225 mg PO DAILY
melatonin 10 mg Tablet
10 mg PO HSPRN PRN (Reason: sleep)
Eliquis 5 mg Tablet
5 mg PO BID
Discharge Orders:
Discharge Patient (As Directed); Ordered 05/30/25
Ordered By: Shannon Ashford
Discharge Date and Time
Discharge Date/Time: 05/30/25 16:32
Print Language: ANDORRAN
[2025-05-30 15:05] VITALS: BP 127/58
== END 2025-05-30 16:32 | DRG 65 ==
LOC: 4 EAST ACU 08:01
PROVIDERS: Clinical Nurse Specialist Family Health; Physician Assistant; Student in an Organized Health Care Education/Training Program; ADMITTING PHYSICIAN Student in an Organized Health Care Education/Training Program; ATTENDING PHYSICIAN Family Medicine; CONSULT PHYSICIAN Physical Medicine & Rehabilitation; CONSULT PHYSICIAN Psychiatry & Neurology Neurology; EMERGENCY PHYSICIAN Emergency Medicine; FAMILY PHYSICIAN Internal Medicine
DX: I63.511 Cerebral infarction due to unspecified occlusion or stenosis of right middle cerebral artery (principal); I48.21 Permanent atrial fibrillation; I10 Essential (primary) hypertension; E78.5 Hyperlipidemia, unspecified; E03.9 Hypothyroidism, unspecified; R29.810 Facial weakness; Z86.73 Personal history of transient ischemic attack (TIA), and cerebral infarction without residual deficits; F41.9 Anxiety disorder, unspecified; R73.03 Prediabetes; Z87.891 Personal history of nicotine dependence; Z96.653 Presence of artificial knee joint, bilateral; Z96.649 Presence of unspecified artificial hip joint; Z88.0 Allergy status to penicillin; D53.9 Nutritional anemia, unspecified; R29.701 NIHSS score 1; R47.01 Aphasia; Z79.01 Long term (current) use of anticoagulants; Z79.899 Other long term (current) drug therapy
CPT/HCPCS: 70450; 70496; 70498; 70551; 71045; 80048; 80053; 80061; 81003; 81015; 82607; 82728; 82746; 83036; 83540; 83550; 83735; 85025; 85027; 87086; 92507; 92523; 92526; 92610; 93005; 93306; 97116; 97129; 97162; 97167; 97535; 99285; Q9967

== ENCOUNTER 2025-06-01 13:22 | Emergency (ER) | payer OTHER, SELFPAY ==
[2025-06-01 13:28] VITALS: BP 92/51
--- NOTE | 2025-06-01 13:40 | ED.CVA ---
History of Present Illness
General
Chief Complaint: CVA/TIA Symptoms
Source: patient and physician locums urgent care
Time Seen by Provider: 06/01/25 13:30
Onset of Stroke Symptoms
Onset of symptoms known: Yes
Date of onset of symptoms: 06/01/25
Time of onset of symptoms: 13:10
History of Present Illness
History of Present Illness:
74-year-old female presents to the emergency room from [facility] where patient was observed to have slurred speech and difficulty finding words at about 1:10 PM. Patient had been admitted to [facility] after being hospitalized here at [facility] for
acute CVA. Patient came to the emergency room on May 25 after having an episode of slurred speech and facial droop. Symptoms have mostly resolved by the time the patient arrived at the emergency room. She was admitted for CVA workup. CTA
revealed a small filling deficit at the MCA M1 and M2 junction. MRI ultimately revealed acute infarcts in the right frontal lobe. Patient was referred to [facility] for rehab. Patient was not a candidate for TNK at that time because she was on Eliquis.
She was evidently relatively symptom-free and so she was not a candidate for IAT. Eliquis was held for a period of time and evidently scheduled to restart on May 31.
Currently patient has some difficulty communicating but is able to make clear she denies headache, chest pain.
Past History
Past History
ED Past Medical History: CVA
ED Past Surgical History: Other
Social History
Tobacco: Smoker
Alcohol: None
Personal: Single
Living: alone
Family History
Family History: Other
Phy Exam
Physical Exam
Physical Exam:
General: Awake, Alert, oriented to person and place.
Vitals: unremarkable
Head: Atraumatic
Eyes: Pupils equal, EOMI
Throat: Airway intact, no exudates
Neck: Trachea midline
Lungs: Clear and equal b/l
Heart: Regular rate, no murmurs
Abd: Soft, Nontender, No pulsatile mass
Neuro: Left facial droop, slurred speech, mild aphasia, decree sensation on the left
Skin: Warm, dry, no rash
Extremities: pulses equal b/l, no edema
Scores
NIH Stroke Score
Level of Consciousness: 0 - Alert
LOC Questions: 0-Answers both correctly
LOC Commands: 0-Performs both correctly
Best Horizontal Gaze: 0-Normal
Visual Cox: 0=Normal, no visual loss
Facial Palsy: 1=Minor paralysis
Motor - Right Arm: 0=No drift 10 seconds
Motor - Left Arm: 0=No drift 10 seconds
Motor - Right Le-No drift 5 seconds
Motor - Left Le-No drift 5 seconds
Limb Ataxia: 0-Absent
Sensation: 1-Mild loss
Best Language: 1-Mild aphasia
Dysarthria: 1-Mild slurring
Extinction and Inattention: 0-No abnormality
NIH Total Score:: 4
Course
Orders/Labs/Results
Orders:
Orders
06/01/25 13:24
CT HEAD STROKE ALERT W/o Cont Urgent
Comment:
Reason For Exam: change in mental status
06/01/25 13:25
CT HEAD/NECK ANG STROKE ALERT Urgent
Comment:
Reason For Exam: change in mental status
06/01/25 13:30
Electrocardiogram (*1) Stat
Comment: ALREADY DONE IN ED
06/01/25 13:34
Complete Blood Count/With Diff Urgent
Comprehensive Metabolic Panel Urgent
06/01/25 14:45
CT BRAIN PERF STROKE ALERT Urgent
Comment:
Reason For Exam: cva
Abnormal Lab Results
06/01/25 06/01/25
13:25 13:34
RBC 3.29 L 10^6/uL
(4.20-5.40)
Hgb 10.9 L g/dL
(12.0-16.0)
Hct 32.8 L %
(37.0-47.0)
MCV 99.7 H fL
(81.0-99.0)
MCH 33.1 H pg
(27.0-31.0)
MPV 11.7 H fL
(7.4-10.4)
Abs Immat Gran (auto) 0.1 H 10^3/uL
(0-0.05)
Absolute Monos (auto) 1.7 H 10^3/uL
(0.1-0.6)
Monocytes % 16.2 H %
(1.7-9.3)
Sodium 134 L mmol/L
(135-145)
Glucose 162 H mg/dl
(70-99)
POC Glucose 173 H mg/dl
(70-99)
06/01/25 13:34
06/01/25 13:34
Vital Signs
Initial and Last Documented VS:
Initial Vital Signs
Temp Pulse Resp BP Pulse Ox
98.4 F 82 16 92/51 97
06/01/25 13:28 06/01/25 13:28 06/01/25 13:28 06/01/25 13:28 06/01/25 13:28
Last Documented Vital Signs
Temp Pulse Resp BP Pulse Ox
98.4 F 80 18 118/89 97
06/01/25 13:28 06/01/25 15:45 06/01/25 15:45 06/01/25 15:30 06/01/25 13:49
MDM/Problems Addressed
Differential Diagnosis Includes:
CVA, conversion to hemorrhagic infarct, seizure, electrode abnormality
MDM/Problems Addressed:
Patient presents with an onset of dysarthria and aphasia. Clinically she appears to have recrudescence of symptoms and brought her to the hospital few days ago. Plain CT shows no acute changes but does show the presence of subacute infarct. CTA
shows that the previously noted thrombus in the right MCA has increased in size. Neurologist here recommends transfer to [facility] for possible intervention. I discussed with Tripp the stroke fellow. He reviewed the patient's images and requested we
obtain a CT perfusion scan. Ultimately patient was accepted in transfer as a level 0 transfer. They will determine whether the patient is a true candidate for intervention once she arrives. Discussed with plan with the patient's daughter and son.
They did sign consent for transfer.
*Radiology
Radiology exam reviewed: radiology read reviewed
*Pulse Oximetry
SaO2: 97
Oxygen Mode of Delivery: Room air
Patient hypoxic: no
*EKG
Heart Rate: 78
Rate: normal
Rhythm: sinus and PAC's
[place]: normal axis
Interval: normal interval
QRS Pattern: normal QRS
Ischemia: no ischemia
*Milling/Polishing Operator Interpretation
Rate: normal
Interpretation: normal
Rhythm: sinus and PAC's
*Critical Care Note
Total Time (30-74mins, 75-104mins- exclusive of procedures): 48 min
comment:
Critical care statement: A total of 48 minutes of critical care time was provided for this patient. This includes management of unstable vital signs, evaluation of the patient at bedside, reviewing the patient's pertinent medical records, discussion
with consultants, review of old EKGs and review of pertinent medical records. This time with separate from time utilized to perform the aforementioned documented procedures
Data Reviewed
Review of Other/Old Records Reveals: Discharge Summary
ED Attending Note
-
Portions of this chart may have been created with voice recognition software.� Occasional wrong word or��sound alike� substitutions may have occurred due to the inherent limitations of voice recognition software.
Discharge Plan
Departure
Patient Disposition: Acute Care Hospital
Date of Disposition: 06/01/25
Time of Disposition: 15:12
Condition: Serious
Discharge Problem:
Acute cerebrovascular accident (CVA)
Prescriptions:
No Action
levothyroxine [Synthroid] 125 mcg Tablet
125 mcg PO DAILY
losartan 50 mg Tablet
50 mg PO DAILY
atorvastatin [Lipitor] 40 mg Tablet
40 mg PO QPM
therapeutic multivitamin Tablet
1 tab PO DAILY
acetaminophen 650 mg Tablet Extended Release
650 mg PO Q4HPRN PRN (Reason: mild pain)
venlafaxine 225 mg Tablet Extended Release 24hr
225 mg PO DAILY
melatonin 10 mg Tablet
10 mg PO HSPRN PRN (Reason: sleep)
Eliquis 5 mg Tablet
5 mg PO BID
sennosides [senna] 8.6 mg Tablet
17.2 mg PO NOON
cyanocobalamin (vitamin B-12) 1,000 mcg Tablet
1,000 mcg PO DAILY
bisacodyl [Dulcolax (bisacodyl)] 10 mg Suppository
10 mg [place] DAILYPRN PRN (Reason: constipation)
docusate sodium [Colace] 100 mg Capsule
100 mg PO BID
bisacodyl [Dulcolax (bisacodyl)] 5 mg Tablet,Delayed Release (Dr/Ec)
10 mg PO DAILYPRN PRN (Reason: constipation)
Referrals:
Jaja Youngblood PA-C [Family Provider, Physical Medicine / Rehab]
Hospital Transfer
Other hospital: [facility]
I certify that the patient requires transfer: Yes
Discussed case with accepting physician: Dr. Fuad Hopkins
Reason for transfer: specialties available
Interventions
Interventions:
*Risk Screen - Suicide Last Done: 06/01/25 14:05
*General Assessment Last Done: 06/01/25 14:05
*Neglect/Abuse Screening Last Done: 06/01/25 14:05
*ED- Fall Risk Assessment Last Done: 06/01/25 14:05
*ED COVID-19 Vaccine History Last Done: 06/01/25 14:25
*ED Influenza Vaccine History Last Done: 06/01/25 14:05
ED- Pulmonary Assessment Last Done: 06/01/25 13:52
ED- Neurological Assessment Last Done: 06/01/25 13:52
ED- Cardiac Assessment Last Done: 06/01/25 13:52
Discharge Date and Time
Print Language: MALTESE
[2025-06-01 13:49] VITALS: BP 107/72
[2025-06-01 13:56] LABS: Hematocrit 32.8 % (37.0-47.0); Hemoglobin 10.9 g/dL (12.0-16.0); Mean Corp Hgb Conc. 33.2 g/dL (33.0-37.0); Mean Corpuscular Volume 99.7 fL (81.0-99.0); Platelet Count 316 10^3/uL (130-400); Red Cell Dist. Width 13.0 % (11.5-14.5)
[2025-06-01 14:15] VITALS: BP 116/74
[2025-06-01 14:15] LABS: ALT (SGPT) 22 U/L (0-35); AST (SGOT) 23 U/L (14-36); Albumin 4.4 g/dl (3.5-5.0); Alkaline Phosphatase 75 U/L (38-126); Blood Urea Nitrogen 16 mg/dl (7-17); Calcium 9.7 mg/dl (8.4-10.2); Carbon Dioxide 28 mmol/L (22-30); Chloride 98 mmol/L (98-107); Estimated Creatinine Clearance 75 ml/min; Glucose 162 mg/dl (70-99); Nucleated Red Blood Cells % 0 %; Potassium 4.3 mmol/L (3.5-5.1); Sodium 134 mmol/L (135-145); Total Protein 7.0 g/dl (6.3-8.2); eGFR > 60.00
[2025-06-01 14:55] LABS: Glucose - Point of Care 173 mg/dl (70-99)
[2025-06-01 15:18] VITALS: BP 118/56
[2025-06-01 15:30] VITALS: BP 118/89
--- NOTE | 2025-06-01 15:56 | CON.NEURO4 ---
Addendum entered and electronically signed by Pacheco Palma MD 06/02/25 15:18:
The patient is a 74 years old female who [facility] with complaint of sudden onset of worsening of her speech and left-sided facial droop. The patient was in the hospital recently for CVA. MRI of the brain done on 05/27/2025
showed acute right frontal lobe ischemic infarcts. The patient has a history of atrial fibrillation and she was on apixaban. CT of the head done on 06/01/2025 showed subacute infarcts in the right frontal lobe with a similar appearance compared to
the head CT from 05/30/2025. The CTA of head and neck showed a thrombus at the junction of M1 and M2 segments of the right middle cerebral artery. The patient was not a candidate for intravenous thrombolytic therapy because she was on apixaban.
On Neurologic Examination, the patient had mild expressive aphasia and she also had mild dysarthria. The patient also had left facial droop. The strength in bilateral upper and lower extremities was grossly 5/5.
Considering that the patient is a candidate for neurovascular intervention, the patient was recommended to be urgently transferred to [facility].
I discussed the findings, diagnosis and the management plan with nurse practitioner Shawanda Hartley. I also discussed the patient's assessment and management plan with the emergency room physician. I saw and examined the patient. I also had a
detailed discussion with the patient's daughter and son-in-law regarding the assessment and the management plan for the patient, and they verbalized understanding of our discussion.
Original Note:
Consultation - Neurology 4
-
CONSULTING PHYSICIAN: Pacheco Palma MD
REFERRING PHYSICIAN: ER/Dr. Love
DICTATED BY: GARRETT Joseph
DATE/TIME OF REQUEST: 06/01/25
DATE/TIME OF CONSULTATION: 06/01/25
Reason for Consultation: Stroke Alert
History of Present Illness:
This is a 74-year-old right-handed female who has [facility] with report of sudden onset worsened aphasia. Patient recently presented to [facility] on 05/26/25 with abrupt onset left facial drooping and dysarthria.
From my previous evaluation on 05/26/25:
'This is a 74-year-old right-handed female who has presented to the hospital with report of dysarthria and left facial drooping. Patient has a history of an old L MCA territory and right parietal lobe ischemic stroke. Per the patient and her son at
bedside, they report that yesterday (05/25/25) she was in her usual state around 1630. The next time her daughter saw her around 1730, she noted that the patient's left face was drooping and her speech was dysarthric, prompting her to bring the
patient to the ER for evaluation. NIHSS was 1 on arrival for mild left facial drooping. CT head was obtained and is negative for any acute abnormalities. She was not a candidate for TNK/IAT due to apixaban usage in the past 12 hours (she has not
missed any doses) and low NIHSS. Patient's son reports that they left last evening at 2100 and her symptoms were lingering, today (05/26/25), she is back to her baseline. She denies any headache, dizziness, vision changes, speech/swallow difficulty,
numbness, and weakness. She does note chronic intermittent dizziness with position change when she does not stay hydrated.'
CTA head/neck on 05/26/25 demonstrated a small filling defect consistent with thrombus at the peripheral R MCA M1-M2 junction. She was not a candidate for IAT due to low NIHSS/resolving symptoms. MRI brain 05/27/25 demonstrates acute right frontal
lobe ischemic infarcts. Patient's apixaban was held for several days following this event and was restarted the evening of 05/30/25. She was discharged to [facility] on 05/30/25. This afternoon (06/01/25), patient was in bed when staff noted that she
suddenly became unable to speak or follow commands, any verbal response was garbled/incoherent prompting her to be sent to the ER for evaluation. CT head was obtained and is negative for any acute abnormalities. CTA head/neck was obtained and shows
a redemonstration of the thrombus at the R MCA M1-M2 junction, which appears increased in size and is suggestive of a R MCA M1 occlusion. NIHSS is 3 for mild aphasia, mild dysarthria, and mild left facial drooping. She is not a candidate for TNK due
to apixaban usage this morning.
Past Medical History: R frontal lobe ischemic stroke May 2025, Old L MCA and right parietal lobe ischemic infarcts, Afib (apixaban), HTN, HLD, hypothyroidism, anxiety, prediabetes
Surgical History: Cholecystectomy, R carpal tunnel release, b/l knee replacement, throat polypectomy, hip replacement, , patent ductus arteriosus repair
Family History: Reviewed and noncontributory.
Social History: Former smoker. Occasional alcohol. Denies illicit drug use.
Allergies: Penicillins.
Home Medications: See below.
Review of Symptoms:
Per the HPI. I am unable to obtain a complete review of systems�because of patient's inability to provide history due to aphasia.
Physical Exam:
The patient is afebrile, abdomen is nondistended, breathing is unlabored, skin is warm and dry, no edema.
NIH Stroke Scale:
I performed the NIH stroke scale on the patient on 06/01/25 at 1400. The patient scored 3 points on the NIH stroke scale assessment, which were assigned as follows: See below.
Neurologic Examination:
The patient is awake and alert. Able to state name but is unable to answer other questions due to aphasia. She is able to follow commands. There is moderate expressive aphasia and mild dysarthria. On cranial nerve assessment, pupils are 3 mm
bilateral, round and reactive to light and accommodation. Visual cox are full. Extraocular movements are intact. There is mild left facial asymmetry. Hearing is intact bilaterally to normal conversation volume. Tongue palate and uvula are
midline. Sternocleidomastoid strengths are full bilaterally. Motor strengths are 5/5 bilateral upper and lower extremities on medical research Waterman scale. There is no drift or involuntary movement noted. MARITZA sensation and double simultaneous due
to aphasia. Coordination is intact by finger to nose bilaterally.
Lab Results: See below.
Neuro Imaging:
1. CT Head 06/01/25: Subacute infarcts in the right frontal lobe with a similar appearance compared to the head CT from 05/30/2025. No CT evidence for new acute intracranial abnormality.
2. CTA head/neck 06/01/25: Redemonstration of thrombus at the junction of the M1 and M2 segments of the right middle cerebral artery, which appears increased in size compared to the CT head and neck angiogram from 05/26/2025.
Differentials for the patient's presentation include:
1. Sudden onset aphasia; CTA head/neck imaging is suggestive of in increase in size of a thrombus at the R MCA M1-M2 junction, likely producing worsening stroke symptoms.
2. Recent R frontal lobe ischemic stroke, apixaban was held for several days.
Patient has the following risk factors for their symptoms: Recent stroke, apixaban on hold for several days
IV Tenecteplase/IAT candidacy: Not a candidate for TNK due to apixaban usage this morning.
Recommendations:
-Recommend urgent transfer to [facility] for neurovascular allergist/immunologist evaluation.
Discussed patient care with: Dr. Palma, the patient
Vital Signs and Labs
-
Vital Signs and Labs:
Vital Signs
Temp Pulse Resp BP Pulse Ox
98.4 F 83 20 116/74 97
06/01/25 13:28 06/01/25 14:45 06/01/25 14:45 06/01/25 14:15 06/01/25 13:49
Lab Results
06/01/25 13:34
06/01/25 13:34
Sodium 134 mmol/L (135-145) L 06/01/25 13:34
Potassium 4.3 mmol/L (3.5-5.1) 06/01/25 13:34
BUN 16 mg/dl (7-17) 06/01/25 13:34
Glucose 162 mg/dl (70-99) H 06/01/25 13:34
Calcium 9.7 mg/dl (8.4-10.2) 06/01/25 13:34
Medications
-
Home Medications
�Medication �Instructions �Recorded
levothyroxine 125 mcg tablet 125 mcg PO DAILY Thyroid 10/08/16
(Synthroid)
acetaminophen 650 mg 650 mg PO Q4HPRN PRN mild pain 05/25/25
tablet,extended release
apixaban 5 mg tablet (Eliquis) 5 mg PO BID Blood Clot 05/25/25
Prevention/Tx
atorvastatin 40 mg tablet (Lipitor) 40 mg PO QPM High Cholesterol 05/25/25
losartan 50 mg tablet 50 mg PO DAILY Blood Pressure 05/25/25
melatonin 10 mg tablet 10 mg PO HSPRN PRN sleep 05/25/25
therapeutic multivitamin 1 tab PO DAILY Supplement 05/25/25
venlafaxine 225 mg tablet,extended 225 mg PO DAILY Mental 05/25/25
release 24 hr Health/Anxiety
bisacodyl 10 mg rectal suppository 10 mg NC DAILYPRN PRN constipation 06/01/25
(Dulcolax (bisacodyl))
bisacodyl 5 mg tablet,delayed 10 mg PO DAILYPRN PRN constipation 06/01/25
release (Dulcolax (bisacodyl))
cyanocobalamin (vitamin B-12) 1,000 mcg PO DAILY 06/01/25
1,000 mcg tablet
docusate sodium 100 mg capsule 100 mg PO BID 06/01/25
(Colace)
sennosides 8.6 mg tablet (senna) 17.2 mg PO NOON 06/01/25
NIH Stroke Score
Subsequent NIH Scale
Date of Subsequent NIH Scale: 06/01/25
Time of Subsequent NIH Scale: 14:00
NIH Stroke Score
Level of Consciousness: 0 - Alert
LOC Questions: 0-Answers both correctly
LOC Commands: 0-Performs both correctly
Best Horizontal Gaze: 0-Normal
Visual Cox: 0=Normal, no visual loss
Facial Palsy: 1=Minor paralysis
Motor - Right Arm: 0=No drift 10 seconds
Motor - Left Arm: 0=No drift 10 seconds
Motor - Right Le-No drift 5 seconds
Motor - Left Le-No drift 5 seconds
Limb Ataxia: 0-Absent
Sensation: 0-Normal
Best Language: 1-Mild aphasia
Dysarthria: 1-Mild slurring
Extinction and Inattention: 0-No abnormality
NIH Total Score:: 3
Modified Reji (mRS) Score
Modified Carlisle Scale (mRS): Moderate disability. Requires some help, able to walk unassisted.
Score: 3
Alteplase Contraindication
Inclusion and Exclusion criteria reviewed: Yes
Reasons for NON-Tx with Thrombolytics ABSOLUTE Exclusions: Patient taking oral anticoagulant and last dose within 48 hours
[2025-06-01 16:12] VITALS: BP 100/42
== END 2025-06-01 16:31 | disposition short-term general hospital (02) ==
LOC: EMR 13:22
PROVIDERS: EMERGENCY PHYSICIAN Emergency Medicine; FAMILY PHYSICIAN Physician Assistant Surgical
DX: I63.9 Cerebral infarction, unspecified (principal); E03.9 Hypothyroidism, unspecified; E78.5 Hyperlipidemia, unspecified; F17.200 Nicotine dependence, unspecified, uncomplicated; I10 Essential (primary) hypertension; I48.91 Unspecified atrial fibrillation; Z79.01 Long term (current) use of anticoagulants; Z86.73 Personal history of transient ischemic attack (TIA), and cerebral infarction without residual deficits; Z88.0 Allergy status to penicillin
CPT/HCPCS: 99291; 0042T; 70450; 70496; 70498; 80053; 82962; 85025; 93005; Q9967

== ENCOUNTER → 2025-07-05 11:00 | Outpatient (REF) | payer OTHER, SELFPAY ==
[2025-07-05 13:22] LABS: Hematocrit 26.5 % (37.0-47.0); Hemoglobin 8.7 g/dL (12.0-16.0); Mean Corp Hgb Conc. 32.8 g/dL (33.0-37.0); Mean Corpuscular Volume 99.3 fL (81.0-99.0); Nucleated Red Blood Cells % 0 %; Platelet Count 349 10^3/uL (130-400); Red Cell Dist. Width 14.2 % (11.5-14.5)
[2025-07-05 13:36] LABS: Absolute Neutrophils -Man Diff 2.7 10^3/uL (1.4-6.5)
[2025-07-05 13:37] LABS: Anisocytosis 1+; Normal RBC Morphology No; Ovalocytes Slight; Platelets Checked Yes; Total Cells Counted 100
[2025-07-05 13:38] LABS: ALT (SGPT) 14 U/L (0-35); AST (SGOT) 19 U/L (14-36); Albumin 3.3 g/dl (3.5-5.0); Alkaline Phosphatase 92 U/L (38-126); Blood Urea Nitrogen 8 mg/dl (7-17); Calcium 8.5 mg/dl (8.4-10.2); Carbon Dioxide 27 mmol/L (22-30); Chloride 101 mmol/L (98-107); Glucose 127 mg/dl (70-99); HDL Cholesterol 38 mg/dl; LDL Cholesterol, Calculated 45 mg/dl; Potassium 3.7 mmol/L (3.5-5.1); Sodium 135 mmol/L (135-145); Total Protein 5.9 g/dl (6.3-8.2); Very Low Density Lipoprotein 19 mg/dl (0-30); eGFR > 60.00
[2025-07-05 14:06] LABS: TSH 0.96 uIU/ml (0.47-4.68)
== END ==
LOC: OLABN 11:00
PROVIDERS: ATTENDING PHYSICIAN Student in an Organized Health Care Education/Training Program
DX: I48.91 Unspecified atrial fibrillation (principal); E03.9 Hypothyroidism, unspecified
CPT/HCPCS: 36415; 80053; 80061; 84439; 84443; 85025

== ENCOUNTER 2025-08-20 18:00 | Inpatient (IN) | payer OTHER, SELFPAY ==
[2025-08-20] VITALS (16 sets, daily range): BP systolic 119–184; BP diastolic 61–111; BMI 22.3; BMI 22.4
[2025-08-20 12:43] LABS: Hematocrit 31.8 % (37.0-47.0); Hemoglobin 10.7 g/dL (12.0-16.0); Mean Corp Hgb Conc. 33.6 g/dL (33.0-37.0); Mean Corpuscular Volume 97.5 fL (81.0-99.0); Nucleated Red Blood Cells % 0 %; Platelet Count 399 10^3/uL (130-400); Red Cell Dist. Width 15.4 % (11.5-14.5)
[2025-08-20 12:56] LABS: INR 1.73; PT 20.4 Sec (11.4-14.6)
[2025-08-20 13:16] LABS: ALT (SGPT) 17 U/L (0-35); AST (SGOT) 21 U/L (14-36); Albumin 3.9 g/dl (3.5-5.0); Alkaline Phosphatase 109 U/L (38-126); Blood Urea Nitrogen 12 mg/dl (7-17); Calcium 9.4 mg/dl (8.4-10.2); Carbon Dioxide 25 mmol/L (22-30); Chloride 102 mmol/L (98-107); Glucose 246 mg/dl (70-99); Potassium 3.6 mmol/L (3.5-5.1); Sodium 136 mmol/L (135-145); Total Protein 7.0 g/dl (6.3-8.2); eGFR > 60.00
[2025-08-20 13:26] LABS: Troponin I < 0.012 ng/ml
--- NOTE | 2025-08-20 13:44 | ED.GENMED ---
History of Present Illness
<GARRETT Armstrong - Last Filed: 08/20/25 20:05>
General
Chief Complaint: Fainting/Passed Out
Source: patient
Time Seen by Provider: 08/20/25 13:42
Nursing documentation reviewed up to this point in time: agreed with
History of Present Illness
History of Present Illness:
74-year-old female from [facility] presents to the ER for evaluation. Pt has hx of Chronic left MCA stroke.
pt was admitted to the ER May 25 for slurred speech facial droop. CT revealed a small filling deficit at right MCA M1 and M2. She did not receive TNK at the time because she was on Eliquis. [facility] with slurred speech difficult word finding and CT at that time showed previous right MCA thrombus decrease in size. She was then transferred to [place].
Daughter reports pt has left sided paralysis and difficultly swallowing and has a purree diet.
As per nursing supervisor production at [facility], pt was in physical therapy and had complained about dizziness, and vomiting.
Pt was brought back to her room and she developed slurred speech at 10 am . Pt is on eliquis and received this am .
Triage note mentions syncopal episode however nursing supervisor production reports this did not occur.
Patient is awake alert slurred speech but does open eyes upon command and answers questions. She does complain of a headache. Daughter at reports that the patient has some slurred speech from recent stroke however this is a new change.
Past History
<GARRETT Armstrong - Last Filed: 08/20/25 20:05>
Past History
ED Past Medical History: CVA
ED Past Surgical History: Other
Social History
Tobacco: Smoker
Alcohol: None
Personal: Single
Living: alone
Family History
Family History: Other
Phy Exam
<GARRETT Armstrnog - Last Filed: 08/20/25 20:05>
General Physical Exam
General Presentation: no apparent distress
General age: appears stated age
General Skin: warm and dry
General Habitus: elderly
General Mental: alert
General Hydration: appears well hydrated
Cardiovascular Exam
Cardiovascular Exam: regular rate/rhythm, no murmur and normal peripheral pulses
Pulmonary Exam
Pulmonary Exam: lungs clear and no respiratory distress
Neurological Exam
Neurological Exam: alert
NIH Stroke Score
Level of Consciousness: 0 - Alert
LOC questions: 1-Answers one correctly
LOC Commands: 0-Performs both correctly
Best Gaze: 1-Partial gaze palsy
Visual Cox: 0=Normal, no visual loss
Facial palsy: 1=Minor paralysis
Motor - Right Arm: 0=No drift 10 seconds
Motor - Left Arm: 2=Partial vs. gravity
Motor - Right Le-No drift 5 seconds
Motor - Left Le-Drift < 5 seconds
Limb Ataxia: 0-Absent
Sensation: 1-Mild loss
Best Language: 1-Mild aphasia
Dysarthria: 1-Mild slurring
Extinction and Inattention: 0-No abnormality
Total Score:: 9
Musculoskeletal Exam
Musculoskeletal Exam: other (left sided weakness )
Skin Exam
Skin Exam: normal color and warm/dry
Psychiatric Exam
Psychiatric Exam: normal mood/affect
Course
<GARRETT Armstrong - Last Filed: 08/20/25 20:05>
Orders/Labs/Results
Orders:
Orders
08/20/25 11:56
Electrocardiogram (*1) Urgent
Reason for Study: Vertigo / Dizzy
CT Head W/o Iv Contrast Urgent
Comment:
Reason For Exam: recent CVA
08/20/25 12:29
Complete Blood Count/With Diff Urgent
Comprehensive Metabolic Panel Urgent
Prothrombin Time Urgent
Troponin I Urgent
08/20/25 14:09
CT BRAIN PERF STROKE ALERT Urgent
Comment:
Reason For Exam: slurred speech/vertigo
CT HEAD/NECK ANG STROKE ALERT Urgent
Comment:
Reason For Exam: slurred speech vertigo
08/20/25 Dinner
NPO
Allow oral meds: No
Allow clear liquids: No
08/20/25 17:36
Admit/Transfer Patient As Directed
Co-Sign Provider:
Level of Care: Inpatient admission
Assign to:: Telemetry
Physician / Group: Lola/Hospitalist
Diagnosis: Acute CVA/dysphagia
Reason for Telemetry: CVA/TIA
Date to Stop Telemetry: 08/23/25
Time to Stop Telemetry: 11:00
Reason for Hospitalization: Acute CVA/dysphagia
Expected length of stay greater than two midnights?: Yes
ELOS- Estimated Length of Stay in days: 3
I certify the patient meets the requirements for IP care: Yes
PRN Pain Medication Management As Directed
May give lesser potent ordered pain med per pt: Yes
preference::
Protocol:: Medication orders for pain may be administered in a
manner that supports deferring to patient preference
when the pt is:
- Requesting an ordered lesser potent pain medication.
Least to most potent pain medications are defined
as: acetaminophen < NSAID < tramadol < opioids
(morphine, oxycodone, hydromorphone).
- Requesting a lesser dose of the same medication IF
ORDERED.
- Requesting a less intrusive route of administration
if both routes are prescribed by the provider (PO <
IV).
08/20/25 17:41
Code Status As Directed
Resuscitation Status: Do not resuscitate
Reached after discussion with pt or family/Healthcare POA: Yes
08/20/25 17:47
DNR Bracelet Application ONCE
08/23/25 11:00
DC Protocol for Telemetry ONCE
Abnormal Lab Results
08/20/25
12:29
RBC 3.26 L 10^6/uL
(4.20-5.40)
Hgb 10.7 L g/dL
(12.0-16.0)
Hct 31.8 L %
(37.0-47.0)
MCH 32.8 H pg
(27.0-31.0)
RDW 15.4 H %
(11.5-14.5)
MPV 11.6 H fL
(7.4-10.4)
Abs Immat Gran (auto) 0.1 H 10^3/uL
(0-0.05)
Absolute Monos (auto) 1.1 H 10^3/uL
(0.1-0.6)
Immature Gran % 0.9 H %
(0-0.5)
Monocytes % 11.4 H %
(1.7-9.3)
PT 20.4 H Sec
(11.4-14.6)
Creatinine 0.5 L mg/dL
(0.6-1.0)
Glucose 246 H mg/dl
(70-99)
08/20/25 12:29
08/20/25 12:29
Vital Signs
Initial and Last Documented VS:
Initial Vital Signs
Temp Pulse Resp BP Pulse Ox
97.1 F 87 17 184/76 99
08/20/25 11:55 08/20/25 11:55 08/20/25 11:55 08/20/25 11:55 08/20/25 11:55
Last Documented Vital Signs
Temp Pulse Resp BP Pulse Ox
97.1 F 84 21 150/71 97
08/20/25 11:55 08/20/25 19:00 08/20/25 19:00 08/20/25 19:00 08/20/25 19:00
Strawhat Blocking Operator consulted with Physician
Strawhat Blocking Operator consulted with physician?: Yes
Name of Physician Consulted: marta
<Adrienne Garcia MD - Last Filed: 08/20/25 15:16>
Orders/Labs/Results
Orders:
Orders
08/20/25 11:56
Electrocardiogram (*1) Urgent
Reason for Study: Vertigo / Dizzy
CT Head W/o Iv Contrast Urgent
Comment:
Reason For Exam: recent CVA
08/20/25 12:29
Complete Blood Count/With Diff Urgent
Comprehensive Metabolic Panel Urgent
Prothrombin Time Urgent
Troponin I Urgent
08/20/25 14:09
CT BRAIN PERF STROKE ALERT Urgent
Comment:
Reason For Exam: slurred speech/vertigo
CT HEAD/NECK ANG STROKE ALERT Urgent
Comment:
Reason For Exam: slurred speech vertigo
08/20/25 Dinner
NPO
Allow oral meds: No
Allow clear liquids: No
08/20/25 17:36
Admit/Transfer Patient As Directed
Co-Sign Provider:
Level of Care: Inpatient admission
Assign to:: Telemetry
Physician / Group: Lola/Hospitalist
Diagnosis: Acute CVA/dysphagia
Reason for Telemetry: CVA/TIA
Date to Stop Telemetry: 08/23/25
Time to Stop Telemetry: 11:00
Reason for Hospitalization: Acute CVA/dysphagia
Expected length of stay greater than two midnights?: Yes
ELOS- Estimated Length of Stay in days: 3
I certify the patient meets the requirements for IP care: Yes
PRN Pain Medication Management As Directed
May give lesser potent ordered pain med per pt: Yes
preference::
Protocol:: Medication orders for pain may be administered in a
manner that supports deferring to patient preference
when the pt is:
- Requesting an ordered lesser potent pain medication.
Least to most potent pain medications are defined
as: acetaminophen < NSAID < tramadol < opioids
(morphine, oxycodone, hydromorphone).
- Requesting a lesser dose of the same medication IF
ORDERED.
- Requesting a less intrusive route of administration
if both routes are prescribed by the provider (PO <
IV).
08/20/25 17:41
Code Status As Directed
Resuscitation Status: Do not resuscitate
Reached after discussion with pt or family/Healthcare POA: Yes
08/20/25 17:47
DNR Bracelet Application ONCE
08/23/25 11:00
DC Protocol for Telemetry ONCE
Abnormal Lab Results
08/20/25
12:29
RBC 3.26 L 10^6/uL
(4.20-5.40)
Hgb 10.7 L g/dL
(12.0-16.0)
Hct 31.8 L %
(37.0-47.0)
MCH 32.8 H pg
(27.0-31.0)
RDW 15.4 H %
(11.5-14.5)
MPV 11.6 H fL
(7.4-10.4)
Abs Immat Gran (auto) 0.1 H 10^3/uL
(0-0.05)
Absolute Monos (auto) 1.1 H 10^3/uL
(0.1-0.6)
Immature Gran % 0.9 H %
(0-0.5)
Monocytes % 11.4 H %
(1.7-9.3)
PT 20.4 H Sec
(11.4-14.6)
Creatinine 0.5 L mg/dL
(0.6-1.0)
Glucose 246 H mg/dl
(70-99)
08/20/25 12:29
08/20/25 12:29
Vital Signs
Initial and Last Documented VS:
Initial Vital Signs
Temp Pulse Resp BP Pulse Ox
97.1 F 87 17 184/76 99
08/20/25 11:55 08/20/25 11:55 08/20/25 11:55 08/20/25 11:55 08/20/25 11:55
Last Documented Vital Signs
Temp Pulse Resp BP Pulse Ox
97.1 F 84 21 150/71 97
08/20/25 11:55 08/20/25 19:00 08/20/25 19:00 08/20/25 19:00 08/20/25 19:00
<GARRETT Armstrong - Last Filed: 08/20/25 20:05>
MDM/Problems Addressed
Differential Diagnosis Includes:
not limited to: acute CVA female
MDM/Problems Addressed:
As documented patient is a 74-year-old female with previous history of stroke(MCA). Patient was hospitalized at [place] June 01 patient currently in rehab.
Around 10 AM complained of headache and dizziness was noted to have slurred speech. Upon my exam after obtaining history from nursing care facility stroke alert was called. Daughter reports patient's speech is now changed though slightly slurred
from previous stroke residual speech is now increasingly slurred and patient seems more lethargic. Patient is able to open eyes answer questions slight struggle speech but follows commands.
[place] [facility] neurology evaluated pt at bedside.
CT head shows large chronic bilateral cerebral infarcts primarily in the bilateral MCA
CTA head and neck shows occlusive thrombus at the junction of the M1 and M2 segment of the right middle cerebral artery similar CT appearance to the previous stroke alert called June 01. Neurology does recommend admission continue
anticoagulation. As discussed with neuro ; challenging to rule out new infarct given the degree of prior bilateral strokes. She was not a candidate for TNK or IAT last time.
Patient will require admission
Chronic conditions affecting care:
strokes
<GARRETT Armstrong - Last Filed: 08/20/25 20:05>
*Radiology
Radiology exam reviewed: radiology read reviewed
*Pulse Oximetry
SaO2: 98
Oxygen Mode of Delivery: Room air
Patient hypoxic: no
*EKG
Heart Rate: 79
Rate: normal
Rhythm: sinus
Ischemia: non-specific ST changes
*Critical Care Note
Total Time (30-74mins, 75-104mins- exclusive of procedures): Not Applicable
comment:
Critical care statement: A total of 40 minutes of critical care time was provided for this patient. This includes management of unstable vital signs, evaluation of the patient at bedside, reviewing the patient's pertinent medical records, discussion
with consultants, review of old EKGs and review of pertinent medical records. This time with separate from time utilized to perform the aforementioned documented procedures
Data Reviewed
Review of Other/Old Records Reveals: Labs, Radiology Studies and Discharge Summary
Source: patient and family
<GARRETT Armstrong - Last Filed: 08/20/25 20:05>
Patient Management
Discussion with other providers: Tile Classifier (neuro )
ED Attending Note
<GARRETT Armstrong - Last Filed: 08/20/25 20:05>
-
Portions of this chart may have been created with voice recognition software.� Occasional wrong word or��sound alike� substitutions may have occurred due to the inherent limitations of voice recognition software.
<Adrienne Garcia MD - Last Filed: 08/20/25 15:16>
ED Attending Note
Patient seen and examined by attending physician: Yes
I performed the substantive portion of visit, reviewed & personally made and approve the management plan that is documented in note by myself or LASHAWN.: Yes
ED Attending Note:
74-year-old female presents emergency department after returning from rehab and complaining of a headache associated with nausea and vomiting and questionable worsening of her baseline slurred speech. Stroke alert was called, neurology promptly to
bedside, patient sent for scans while family updated. In summary, patient has an occlusion in the right M1 however CTP does not support penumbra. Unclear if patient actually had a new stroke. Case discussed with neurology recommendation is to
continue anticoagulation, usual stroke workup admission MRI etc. Not a tnk/MT candidate. Familu pdated.Upon initial presentation, pt was noted to have slurred speech, limited answering of questions. Now sleeping.
Discharge Plan
Departure
Patient Disposition: Admit
Date of Disposition: 08/20/25
Time of Disposition: 15:57
Admit to: Telemetry
Admit to doctor: hospitalist
Presentation/result/management discussed w/ accepting MD/DO: Hospitalist
Patient with high blood pressure during this ER visit?: Yes
Condition: Fair
Covid-19: Not Applicable
Discharge Problem:
Acute CVA (cerebrovascular accident)
Interventions
Interventions:
*General Assessment Last Done: 08/20/25 12:03
*Neglect/Abuse Screening Last Done: 08/20/25 12:03
*ED COVID-19 Vaccine History Last Done: 08/20/25 13:28
*ED Influenza Vaccine History Last Done: 08/20/25 13:28
[facility] Risk Assessment Tool Last Done: 08/20/25 13:27
*Risk Screen - Suicide (C-SSRS) Last Done: 08/20/25 12:03
ED- Cardiac Assessment Last Done: 08/20/25 13:30
ED- Neurological Assessment Last Done: 08/20/25 13:30
--- NOTE | 2025-08-20 14:16 | CON.NEURO ---
Neuro Assessment/Plan
Assessment
74-year-old female PMH AFIB (on AC), HTN, HLD, chronic L MCA, R frontal stroke (05/25), presenting with acute dysarthria and presyncopal episode, found to have stable R M1 occlusion.
Neurological exam notable for right gaze deviation, left nasolabial fold flattening, and left spastic hemiparesis (all baseline per daughter's report after recent stroke), however with new dysarthria and mild expressive aphasia.
CTA demonstrated stable RM1-M2 occlusion with distal reconstitution, notably seen on CTA 05/25 and 06/24 (at the time without intervention). NCHCT without evidence of hemorrhage or new large transcortical infarct, however challenging to definitively
rule out new infarct given extensive degree of prior bilateral strokes. She was not a candidate for TNK or IAT.
Differential includes interval infarct, hypoperfusional episode, vs recrudescence of recent right frontal stroke (05/25), given presenting symptoms of nausea and presyncope (infection/dehydration?). MRI will be helpful in differentiating above.
If evidence of interval infarct, potentially suggestive of apixiban failure, assuming that she had been taking this regularly twice daily as prescribed; will consider addition of ASA or alternative AC. Stroke etiology highly likely cardioembolic
from known AFIB, although will evaluate for LV thrombus with TTE.
Plan
- START heparin gtt (12 U/kg/h) given inability to tolerate PO apixiban
- obtain interval head CT after 2 therapeutic PTTs within range or in 24 hours
- obtain MRI brain without contrast
- restart atorvastatin 40 mg once able to take PO
- BP goal permissive hypertension (BP < 220/120)
- Head of bed flat, IVF
- obtain TTE with contrast to evaluate for LV thrombus
- consider hypercoagulable workup if interval stroke given recent stroke while on apixiban
- PT/OT/ENVIRONMENTAL SCIENCE INSTRUCTOR/PMR
Consultation
Order
Date of Consultation: 08/20/25
Requesting Provider:
Reason for Consult:
Subjective/Objective
Subjective Data
Date of Service: August 20, 2025
74-year-old female PMH AFIB (on AC), HTN, HLD, chronic L MCA, R frontal stroke (05/25), presenting with acute dysarthria and presyncopal episode, found to have stable R M1 occlusion.
Her last known well was at approximately 08/20 1000, at which time she was noted to have acute onset nausea, vomiting, dizziness, and dysarthria.
Initial NIHSS (08/20 14:09) was 9 (-1 LOC, -1 partial R gaze palsy, -1 NLFF, -2 LUE, -1 LLE, -1 left hemisensory loss, -1 mild aphasia, -1 dysarthria).
She was not a candidate for TNK due to recent anticoagulation use.
CTA demonstrated acute occlusive thrombus in the RM1/M2 junction of the MCA with distal reconstitution.
NCHCT with chronic bilateral transcortical infarcts in the right frontal lobe, right temporal lobe, and left parietal lobe.
Her family noted that left sided hemiplegia was chronic following her recent R frontal stroke (05/25, see below), however her dysarthria and mild aphasia is new.
After discussion with [facility] (Dr. Larsen), decision was made that she was not a thrombectomy candidate (RM1 occlusion was stable from prior, no clear perfusional deficits, and only mild change from prior baseline).
She was unable to pass PO screen.
Recent presentation.
She was recently admitted to 05/25/25 with acute onset left facial droop, dysarthria, with inital NIHSS 1. She was not a TNK candidate due to recent anticaogulation usage and low NIHSS. CTA demostrated R M1-M2 occlusion. Given mild/resolving
symptoms, she was deemed not a candidate for mechanical thrombectomy. MRI demonstrated acute right frontal infarct. Apixban was restarted 05/30 and she was discharged to [facility] on 05/30/25. She was noted to have acute aphasia 06/01, at which time
she re-presented [facility] NIHSS 3 (aphasia, dysarthria, left nasolabial fold flattening; CTA again demonstrated R M1-M2 junction. She again was not a TNK or IAT candidate.
Objective Data
Vital Signs
Temp Pulse Resp BP Pulse Ox
36.2 C 86 14 157/86 98
08/20/25 11:55 08/20/25 13:30 08/20/25 13:30 08/20/25 13:30 08/20/25 13:46
Lab Results
08/20/25 12:29
08/20/25 12:
PT 20.4 Sec (11.4-14.6) H 08/20/25 12:
INR 1.73 08/20/25 12:29
Sodium 136 mmol/L (135-145) 08/20/25 12:
Potassium 3.6 mmol/L (3.5-5.1) 08/20/25 12:
BUN 12 mg/dl (7-17) 08/20/25 12:29
Glucose 246 mg/dl (70-99) H 08/20/25 12:29
Calcium 9.4 mg/dl (8.4-10.2) 08/20/25 12:29
LDL 45
Patient Allergies
Penicillins Allergy (Verified 08/20/25 11:56)
Rash
TTE (05/29/25)
1. Normal biventricular size and function without regional wall motion abnormalities.
2. LVEF is 60-65% by visual estimation. Normal diastolic function.
3. No significant valvular disease.
4. Normal estimated PASP at 28 mmHg.
5. No prior study available for comparison.
CTAH&N (08/19/25, personally reviewed) Acute occlusive thrombus in the RM1/M2 junction of the MCA with distal reconstitution.
NCHCT (08/19/25, personally reviewed) Large chronic bilateral cerebral infarcts primarily in the bilateral MCA distribution.
CVA Assessment
Onset of Stroke Symptoms
Date last time pt seen normal: 08/20/25
Time last time pt seen normal: 10:00
NIH Stroke Score
Level of Consciousness: 0 - Alert
LOC Questions: 1-Answers one correctly
LOC Commands: 0-Performs both correctly
Best Horizontal Gaze: 1-Partial gaze palsy
Visual Cox: 0=Normal, no visual loss
Facial Palsy: 1=Minor paralysis
Motor - Right Arm: 0=No drift 10 seconds
Motor - Left Arm: 2=Partial vs. gravity
Motor - Right Le-No drift 5 seconds
Motor - Left Le-Drift < 5 seconds
Limb Ataxia: 0-Absent
Sensation: 1-Mild loss
Best Language: 1-Mild aphasia
Dysarthria: 1-Mild slurring
Extinction and Inattention: 0-No abnormality
NIH Total Score:: 9
Tenecteplase Contraindications
Inclusion and Exclusion criteria reviewed: Yes
Reasons for NON-Tx with Thrombolytics ABSOLUTE Exclusions: Patient taking oral anticoagulant and last dose within 48 hours
Past History
Past Medical / Surgical History
Past Medical History: Other (HTN, HLD, AFIB)
Review of Systems
-
All other systems: Reviewed and negative
Physical Exam
-
Lethargic, however arousable, oriented to person, and place, not time
Able to state age
Follows 1- and 2-step axial appendicular crossed commands
Mild expressive aphasia and moderate dysarthria
Right gaze preference that crosses midline
Mild left nasolabial flattening
CNII-XII otherwise intact
Strength full on the right
LUE spastic hemiplegia (1/5 throughout)
LLE at least 3-4/5
Reduced sensation on the left to light touch
Data Reviewed
-
CT-A: Report Reviewed and Image Reviewed
CT-Perfusion: Report Reviewed and Image Reviewed
CT Head: Report Reviewed and Image Reviewed
MRI Head: Image Reviewed
Labs: Report Reviewed
Lipid Profile: Report Reviewed
Medications
-
Home Medications
�Medication �Instructions �Recorded
levothyroxine 125 mcg tablet 125 mcg PO DAILY Thyroid 10/08/16
(Synthroid)
acetaminophen 650 mg 650 mg PO Q4HPRN PRN mild pain 05/25/25
tablet,extended release
apixaban 5 mg tablet (Eliquis) 5 mg PO BID Blood Clot 05/25/25
Prevention/Tx
atorvastatin 40 mg tablet (Lipitor) 40 mg PO QPM High Cholesterol 05/25/25
losartan 50 mg tablet 50 mg PO DAILY Blood Pressure 05/25/25
melatonin 10 mg tablet 10 mg PO HSPRN PRN sleep 05/25/25
therapeutic multivitamin 1 tab PO DAILY Supplement 05/25/25
venlafaxine 225 mg tablet,extended 225 mg PO DAILY Mental 05/25/25
release 24 hr Health/Anxiety
bisacodyl 10 mg rectal suppository 10 mg [place] DAILYPRN PRN constipation 06/01/25
(Dulcolax (bisacodyl))
bisacodyl 5 mg tablet,delayed 10 mg PO DAILYPRN PRN constipation 06/01/25
release (Dulcolax (bisacodyl))
cyanocobalamin (vitamin B-12) 1,000 mcg PO DAILY 06/01/25
1,000 mcg tablet
docusate sodium 100 mg capsule 100 mg PO BID 06/01/25
(Colace)
sennosides 8.6 mg tablet (senna) 17.2 mg PO NOON 06/01/25
--- NOTE | 2025-08-20 16:49 | HPS.HSE ---
Addendum entered and electronically signed by Roslyn Davila DO 08/20/25 18:54:
I spoke to Neurologist, Dr. Lisa, who recommended hep gtt starting at 12 u/kg/h, while the patient is NPO status, at lowest dose, to reduce the risk of hemorrhagic transformation, and rec for repeat non-contrast head CT in 24 hours, or when 2
therapeutic PTTs (unless brain MRI is first).
-I discussed the risk/benefits of Hep gtt with the patient's daughter, and we are in agreement to initiate hep gtt.
-Monitor PTT on hep gtt
-Speech eval pending
Original Note:
Family Physician
-
Family Physician: NOT KNOW UNKNOWN - PT DOES
Chief Complaint
-
Worsening slurred speech, nausea, dizziness, vomiting
History of Present Illness
The patient is a 74-year-old right-handed female rehabilitation with PMH significant for left MCA CVA in 2023, hypertension, hyperlipidemia, atrial fibrillation on Eliquis, hypothyroidism, macrocytic anemia, anxiety, admission to [facility]
on 05/25/2025 with slurred words and left facial droop, found to have on 05/27 MRI of the brain (showed acute infarcts in the right frontal lobe with the largest focus of infarction in the transcortical anterior right frontal lobe, and smaller acute
infarcts in the right frontal lobe white matter, Chronic transcortical infarcts in the left parietal lobe and right temporal lobe,multiple bilateral cerebellar chronic lacunar infarcts), with residual left sided paralysis and difficultly swallowing
and has a puree diet, presenting from [facility] due to dizziness and vomiting while in physical therapy associated with slurred speech that occurred approximately 10 AM today. She also was complaining of a headache. In the emergency
department, a stroke alert was called. Neurology was notified. The daughter said that the patient's slurred speech is worse than her baseline. CTA of the head and neck performed in the emergency department shows an occlusive thrombus at the
junction of the M1 and M2 segment of the right middle cerebral artery, and similar CT appearance of the previous stroke (large chronic bilateral cerebral infarcts primarily in the bilateral MCA distribution). Neurology in the emergency department
and recommended admission for MRI of the brain and continue patient's current anticoagulation. Neurology said she is not a tnk/MT candidate.
Medical History
Past Medical History
Past Medical History: Reports Other
Additional Past Medical History:
CVA (Left MCA territory old infarct,small old right parietal lobe infarct) 2013
HTN
HLD
Hypothyroidism
Paroxysmal A-fib
Prediabetes
Anxiety
Former smoker 45-year 1.5 pack/day quit age 64
Past Surgical History: Reports Other
Additional Past Surgical History:
Patent ductus arteriosus repair 1954
Cholecystectomy
Throat surgeries to remove polyps
Hip replacement
Bilateral knee replacement
Right hand carpal tunnel
Social History
Tobacco: Former Smoker (Former smoker 45-year 1.5 pack/day quit age 64)
Alcohol: Occasional (2-3 times a month)
Personal:
Living: With Family
Employment: Retired
Family History
Family History: Not pertinent
Allergies / Home Medications
Allergies reflects when Allergies were last updated in [employer].
Home Medications with original date entered in [employer]
Allergy/Medication List:
Allergies
Allergy/AdvReac Type Severity Reaction Status Date / Time
Penicillins Allergy Rash Verified 08/20/25 11:56
Home Medications
levothyroxine 125 mcg tablet (Synthroid) 125 mcg PO DAILY Thyroid 10/08/16
acetaminophen 650 mg tablet,extended release 650 mg PO Q4HPRN PRN mild pain 05/25/25
apixaban 5 mg tablet (Eliquis) 5 mg PO BID Blood Clot Prevention/Tx 05/25/25
atorvastatin 40 mg tablet (Lipitor) 40 mg PO QPM High Cholesterol 05/25/25
losartan 50 mg tablet 50 mg PO DAILY Blood Pressure 05/25/25
melatonin 10 mg tablet 10 mg PO HSPRN PRN sleep 05/25/25
therapeutic multivitamin 1 tab PO DAILY Supplement 05/25/25
venlafaxine 225 mg tablet,extended release 24 hr 225 mg PO DAILY Mental Health/Anxiety 05/25/25
bisacodyl 10 mg rectal suppository (Dulcolax (bisacodyl)) 10 mg [place] DAILYPRN PRN constipation 06/01/25
bisacodyl 5 mg tablet,delayed release (Dulcolax (bisacodyl)) 10 mg PO DAILYPRN PRN constipation 06/01/25
cyanocobalamin (vitamin B-12) 1,000 mcg tablet 1,000 mcg PO DAILY 06/01/25
docusate sodium 100 mg capsule (Colace) 100 mg PO BID 06/01/25
sennosides 8.6 mg tablet (senna) 17.2 mg PO NOON 06/01/25
Review of Systems
-
A 12 point ROS was completed and negative except as noted: Yes
Physical Exam
Vital Signs
Vital Signs
Temp Pulse Resp BP Pulse Ox
97.1 F 82 15 135/71 97
08/20/25 11:55 08/20/25 16:32 08/20/25 16:32 08/20/25 16:32 08/20/25 15:45
Physical Exam
General: Appears Chronically Ill
HEENT: NormoCephalic and Anicteric
Respiratory: Clear
Cardiac: S1/S2 and Regular Rhythm
GI: Soft, Non Tender and Non Distended
Musculoskeletal: No Clubbing, No Cyanosis and No Edema
Skin: Warm, Dry and IV/Catheter Site (Right upper extremity IV infusion site infiltrated with swelling around infiltration in the right upper extremity)
Neuro: Other (Left upper extremity chronic flaccid paralysis, unchanged, slurred speech, failed bedside swallow, choked on water, left lower extremity minimally contracted, moves right upper and lower extremity)
Psych: Calm
Laboratory Results
-
12/21/25 12:
08/20/25 12:
Laboratory Results
PT 20.4 Sec (11.4-14.6) H 08/20/25 12:
INR 1.73 08/20/25 12:
Total Bilirubin 0.6 mg/dl (0.2-1.3) 08/20/25 12:
AST 21 U/L (14-36) 08/20/25 12:
ALT 17 U/L (0-35) 08/20/25 12:
Alkaline Phosphatase 109 U/L (38-126) 08/20/25 12:
Troponin I < 0.012 ng/ml 08/20/25 12:
Data Reviewed
-
CT Scan: Report Reviewed by me (See below)
Medical Tests (Nuc Med, Echo, EKG etc): Image Personally Visualized and interpreted (EKG no acute ischemia, NSR) and Report Reviewed by me
Impression/Plan
-
IMPRESSION:The patient is a 74-year-old right-handed female rehabilitation with PMH significant for left MCA CVA in 2023, hypertension, hyperlipidemia, atrial fibrillation on Eliquis, hypothyroidism, macrocytic anemia, anxiety, admission to
[facility] on 05/25/2025 with slurred words and left facial droop, found to have on 05/27 MRI of the brain (showed acute infarcts in the right frontal lobe with the largest focus of infarction in the transcortical anterior right frontal lobe,
and smaller acute infarcts in the right frontal lobe white matter, Chronic transcortical infarcts in the left parietal lobe and right temporal lobe,multiple bilateral cerebellar chronic lacunar infarcts), with residual left sided paralysis and
difficultly swallowing and has a puree diet, presenting from [facility] due to dizziness and vomiting while in physical therapy associated with slurred speech that occurred approximately 10 AM today. She also was complaining of a headache. In
the emergency department, a stroke alert was called. Neurology was notified. The daughter said that the patient's slurred speech is worse than her baseline. CTA of the head and neck performed in the emergency department shows an occlusive
thrombus at the junction of the M1 and M2 segment of the right middle cerebral artery, and similar CT appearance of the previous stroke (large chronic bilateral cerebral infarcts primarily in the bilateral MCA distribution). Neurology in the
emergency department and recommended admission for MRI of the brain and continue patient's current anticoagulation. Neurology said she is not a tnk/MT candidate.
#Concern for acute CVA, and NIH of 19, presents with worsening slurred speech compared to baseline, persistent, and new dysphagia that is persistent, failed bedside swallow
-CT Head with findings of Large chronic bilateral cerebral infarcts primarily in the bilateral MCA distribution
-CTA Head:
Occlusive thrombus re-demonstrated at the junction of the M1 and M2 segments of the right middle cerebral artery, similar compared to the most recent CT head and neck angiogram.
-CTA Neck:
-Mild atherosclerosis again noted at the bilateral carotid bifurcations. The bilateral common carotid, internal carotid, and external carotid arteries are patent. No high-grade stenosis or occlusion.
-tele monitoring
-Neuro Cx in ED
-cont Eliquis
-MRI brain
-N.p.o. status
-Hold all oral medications, high risk for choking
-Speech therapy consultation
-Aspiration precautions
#Prediabetes- Hyperglycemia possibly stress-induced
-glucose currently 246
-Check hemoglobin A1c
-Continue to monitor glucose levels, sliding scale insulin for now
# Essential HTN
-cont BP med Losartan w hold parameters -Will hold for now all oral medications due to failed p.o. challenge
-As needed IV blood pressure medication, blood pressure stable at this time
#HLD
-cardiovascular labs in am
#Hypothyroidism
-Synthroid , holding all oral medications for now
#Paroxysmal A-fib
-Echo 05/29/25 1. Normal biventricular size and function without regional wall motion abnormalities.
2. LVEF is 60-65% by visual estimation. Normal diastolic function.
3. No significant valvular disease.
-Hold Eliquis due to failed oral challenge, tele monitoring, discuss anticoagulation with neurology
#Anxiety
#Former smoker 45-year 1.5 pack/day quit age 64
DVT proph Eliquis
The patient confirmed that she has a DNR
[2025-08-20] MEDS: ZOFRAN 4 MG IV (18:59)
[2025-08-20] MEDS: HEPARIN 25000 UNITS/250 ML IV (19:06)
[2025-08-20 19:20] LABS: Hematocrit 30.4 % (37.0-47.0); Hemoglobin 10.2 g/dL (12.0-16.0); Mean Corp Hgb Conc. 33.6 g/dL (33.0-37.0); Mean Corpuscular Volume 95.6 fL (81.0-99.0); Platelet Count 379 10^3/uL (130-400); Red Cell Dist. Width 15.4 % (11.5-14.5)
[2025-08-20 19:31] LABS: APTT 39.9 Sec (23.4-35.0)
--- NOTE | 2025-08-20 20:40 | PTCARENOTE ---
Pt received from the ED via stretcher accompanied by ED staff. AAOx3, pulled over to bed by staff. VSS w/o complaints of pain. Placed on tele. Pt oriented to room with call elise within reach.
[2025-08-20] MEDS: NSS 1000 IV (22:36)
[2025-08-21] VITALS (9 sets, daily range): BP systolic 120–156; BP diastolic 66–78; PULSE 97; O2SAT 96; BMI 22.4
[2025-08-21 00:02] LABS: Glucose - Point of Care 162 mg/dl (70-99)
[2025-08-21 02:26] LABS: APTT 57.6 Sec (23.4-35.0)
[2025-08-21 06:06] LABS: Glucose - Point of Care 129 mg/dl (70-99)
[2025-08-21] MEDS: NOVOLOG FLEXPEN-LOW RESISTANCE SC ×3 (06:41→17:30)
[2025-08-21 07:51] LABS: Urine Character Clear (Clear)
--- NOTE | 2025-08-21 08:13 | W.PN.HOSP.TC ---
Addendum entered and electronically signed by Adam Law MD 08/21/25 14:59:
I saw and evaluated the patient. I reviewed the resident�s note and agree with findings and plan as documented in the resident�s note.
1. Acute dysarthria -known right M1 M2 occlusion on CTA. MRI brain from 05/27 showing frontal lobe infarct. Chronic transcortical infarct involving left parietal lobe and right temporal lobe with encephalomalacia. Multiple lacunar infarcts in
bilateral cerebellar hemisphere.
- CTA head and neck done in ER showing known right M1 M2 thrombotic occlusion -of note patient was transferred to [facility] in May for possible neurointervention although was not a candidate.
-Neurology evaluated in the ER and question of possible new stroke versus stroke recrudescence versus hypoperfusion related symptoms (patient presyncope may have aggravated symptoms)
- MRI brain done and official read pending
- Neurology recommended for TTE with contrast
- Currently patient on heparin drip and will need to be continued as patient needs to be strict n.p.o. as failed ST evaluation. Patient will need f/u VSE in morning
-Continue PT OT
2. Essential hypertension
- Can be resumed on blood pressure medication resuming no new stroke found on MRI brain
3. Presyncope
- Patient was working with physical therapy at [facility] and apparently had episode of dizziness and vomiting
- Questionable if this could have been a vasovagal event or orthostatic hypotension
- Orthostatic vital checks ordered
4. Parox afib
- DOAC's to be held as patient not able to clear speech therapy evaluation. Maintained on heparin drip for time being
Complex neurological case with need of continual monitoring
Original Note:
Today's Communication/Plan
-
- MRI brain today
- TTE
- Continue heparin gtt, low-dose (holding home apixaban pending okay PO intake)
- Maintain goal BP <220/120 with permissive hypertension
- Repeat noncontrast head CT in 24 hours (EOT today), or following to therapeutic PTTs (unless brain MRI completed first)
- Speech eval pending
- Restart atorvastatin 40mg daily once able to take PO
- Neurology following, appreciate recs
- May require transfer to [place]
Assessment / Plan
Assessment / Plan
74-year-old F with a hx of paroxysmal A-fib (on Eliquis), essential HTN, HLD, hypothyroidism, chronic L MCA/R frontal stroke (since 05/25), who presented following episode of acute dysarthria and presyncope, found to have stable R M1 occlusion, now
on heparin gtt.
#Acute dysarthria in s/o stable R M1 occlusion, chronic L MCA/R frontal stroke
Per 05/27 MRI, acute infarcts in transcortical anterior R frontal lobe temporal lobe, cerebellar lacunar infarcts. At baseline, patient has residual left-sided paralysis, left-sided facial droop, some dysarthria. Patient presented 08/20 due to
acute worsening of dysarthria, nausea, headache. CTA head/neck 08/20: Stable right M1�M2 occlusion. CT head 08/20: No ICH or large new CVA. Per neuro, not a candidate for thrombolysis. Patient s/p low-dose IV heparin gtt started 08/20. Of note,
this has been recurrent issue for pt, on 06/06 she presented to ED from [facility] w slurred speech/word finding difficulty, and was transferred to [place].
Uncertain if episode represents recrudescence of prior stroke symptoms vs. hypoperfusion episode vs. new stroke/Eliquis failure not visualized on initial CT.
- MRI brain today
- TTE
- Continue heparin gtt, low-dose (holding home apixaban)
- Maintain goal BP <220/120 with permissive hypertension
- Repeat noncontrast head CT in 24 hours (EOT today), or following to therapeutic PTTs (unless brain MRI completed first)
- Speech eval pending
- Restart atorvastatin 40mg daily once able to take PO
- Neurology following, appreciate recs
- May require transfer to [place]
#Chronic
#HLD - restart 40mg atorvastatin when can take PO
#Essential HTN -holding home metoprolol, allowing permissive hypertension
#Hypothyroidism -continue home levothyroxine when patient able to take p.o.
#Paroxysmal A-fib -holding p.o. Eliquis
#Pre-DM - prior a1c 6,1; will ctm for now
#Global
- DVT PPx: Heparin GTT, morning holding home p.o. eliquis pending speech eval
- Diet: NPO pending speech eval
- Code: DNR
- Dispo: pending PT/OT, stabilization (lives at [facility])
Anticipated Discharge: 24 - 48 hours
Subjective/Interval History
-
Date of Service: August 21, 2025
Patient somewhat distressed this morning. Repeatedly asking what happened. Asking where her kids are. Asking when the neurologist is coming. Denies any pain.
Objective Data
-
Labs:
Laboratory Results
08/20/25 08/21/25 08/21/25
19:12 01:57 06:00
WBC Pending
Hgb Pending
Hct Pending
Plt Count Pending
APTT Cancelled 57.6 H
08/21/25
08:35
WBC
Hgb
Hct
Plt Count
APTT Pending
Vital Signs:
Vital Signs
Temp Pulse Resp BP Pulse Ox
97.9 F 84 14 151/78 98
08/21/25 03:15 08/21/25 03:15 08/21/25 03:15 08/21/25 03:15 08/21/25 03:15
I&O
08/20/25 08/21/25 08/22/25
06:59 06:59 06:59
Output Total 440 / 440
Balance -440 / -440
Review of Systems
-
History Source: Patient
Constitutional: Reports No Symptoms
Respiratory: Reports No Symptoms
Cardiac: Reports No Symptoms
Abdomen/GI: Reports No Symptoms
Musculoskeletal: Reports No Symptoms
Skin: Reports No Symptoms
Neuro: Reports No Symptoms
Psych: Reports Anxious
Physical Exam
-
General: Well Nourished, Conversant and Slurred Speech
HEENT: Normocephalic and Atraumatic
Respiratory: Clear to Auscultation and Non Labored Respirations
Cardiac: Regular Rhythm
GI: Soft, Nontender and Nondistended
Musculoskeletal: No Edema
Skin: Warm and Dry
Neuro: Awake, Alert, Slurred Speech and Facial Droop (Left lower facial droop)
Psych: Anxious
Data Reviewed
-
Total Time Spent with Patient (in minutes): 15
Critical Care Time (in minutes): 45
CT Scan: Image personally visualized and interpreted and Report Reviewed by me
Labs: Labs Reviewed by me
--- NOTE | 2025-08-21 08:35 | PTOTSP ---
Speech Language Pathology
Pt seen for speech/language evaluation. Informal measures completed given presence of family members with pt with high distractibility. Pt oriented to name, month/day of (stated 1849 for year), and location. Unsure of situation, stating 'I
think I yesterday.' Pt with mod dysarthria characterized by incoordinated production and nasal emission. 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
Pt also seen for clinical bedside swallow evaluation. Minimal lingual movement noted. Pt reported feeling like she has phlegm in her throat. P.O. trials of thin liquids via pipetted straw provided, approximately 2ccs. Minimal movement noted to
palpation with prolonged weak coughing episode noted followed by hiccups. Suspect aspiration. Further P.O. trials deferred secondary to severity of response with minimal thin water. Pt is at high risk for aspiration.
Recommend:
(1) Strict NPO
(2) Not appropriate for Aspiration Risk Hydration Protocol (ARHP)
(3) Non-oral meds
(4) Flexible endoscopic evaluation of swallowing (FEES), ideally 08/22 to give pt time to potentially improve
(5) INVENTORY CONTROL ANALYST to continue to follow for dysarthria, dysphagia and cognitive-linguistic tx
[2025-08-21 09:47] LABS: Hematocrit 28.9 % (37.0-47.0); Hemoglobin 9.5 g/dL (12.0-16.0); Mean Corp Hgb Conc. 32.9 g/dL (33.0-37.0); Mean Corpuscular Volume 97.0 fL (81.0-99.0); Platelet Count 375 10^3/uL (130-400); Red Cell Dist. Width 15.9 % (11.5-14.5)
[2025-08-21 09:52] LABS: APTT 45.6 Sec (23.4-35.0)
--- NOTE | 2025-08-21 10:34 | W.PN.NEURO.1 ---
Addendum entered and electronically signed by Pacheco Palma MD 08/21/25 22:28:
I saw and examined the patient today along with the nurse practitioner Malia Pepe, and agree with her assessment and management plan. Given below is my addendum.
74-year-old female PMH AFIB (on AC), HTN, HLD, chronic L MCA, R frontal stroke (05/25), presenting with acute dysarthria and presyncopal episode, found to have stable R M1 occlusion.
Neurological exam notable for right gaze deviation, left nasolabial fold flattening, and left spastic hemiparesis (all baseline per daughter's report after recent stroke), however with new dysarthria and mild expressive aphasia.
. On neurologic examination the strength in the left upper extremity is 0/5 and the left lower extremity is 3/5. Strength in the right upper and lower extremities is grossly normal. Patient is also found to have aphasia and dysarthria..
CTA demonstrated stable RM1-M2 occlusion with distal reconstitution, notably seen on CTA 05/25 and 06/24 (at the time without intervention).
MRI of the brain done today, shows a new large acute infarct in the inferior right cerebellum and acute infarct in the right posterior medulla.
Currently the patient is on a heparin drip patient is n.p.o. as she failed speech therapy evaluation. At home, the patient was on anticoagulation for atrial fibrillation.
I had a detailed discussion with the patient's daughter regarding the assessment and management plan, and she verbalized understanding of our discussion.
Will follow.
Original Note:
Today's Communication / Plan
-
- continue heparin gtt (12 U/kg/h) given inability to tolerate PO apixiban
- obtain MRI brain without contrast
- restart atorvastatin 40 mg once able to take PO
- obtain TTE with contrast to evaluate for LV thrombus
- consider hypercoagulable workup if interval stroke given recent stroke while on apixiban
- PT/OT/FORMING ACID DUMPER/PMR
- neurochecks and NIHSS per unit protocol
- stroke education packet
All questions encouraged and answered, plan of care discussed with Dr. Palma, hospitalist, nurse, patient and family
Neuro Assessment/Plan
Assessment
74-year-old female PMH AFIB (on AC), HTN, HLD, chronic L MCA, R frontal stroke (05/25), presenting with acute dysarthria and presyncopal episode, found to have stable R M1 occlusion.
Neurological exam notable for right gaze deviation, left nasolabial fold flattening, and left spastic hemiparesis (all baseline per daughter's report after recent stroke), however with new dysarthria and mild expressive aphasia.
CTA demonstrated stable RM1-M2 occlusion with distal reconstitution, notably seen on CTA 05/25 and 06/24 (at the time without intervention). NCHCT without evidence of hemorrhage or new large transcortical infarct, however challenging to definitively
rule out new infarct given extensive degree of prior bilateral strokes. She was not a candidate for TNK or IAT.
Differential includes interval infarct, hypoperfusional episode, vs recrudescence of recent right frontal stroke (05/25), given presenting symptoms of nausea and presyncope (infection/dehydration?). MRI will be helpful in differentiating above.
If evidence of interval infarct, potentially suggestive of apixiban failure, assuming that she had been taking this regularly twice daily as prescribed; will consider addition of ASA or alternative AC. Stroke etiology highly likely cardioembolic
from known AFIB, although will evaluate for LV thrombus with TTE.
Plan
- continue heparin gtt (12 U/kg/h) given inability to tolerate PO apixiban
- obtain MRI brain without contrast
- restart atorvastatin 40 mg once able to take PO
- obtain TTE with contrast to evaluate for LV thrombus
- consider hypercoagulable workup if interval stroke given recent stroke while on apixiban
- PT/OT/FORMING ACID DUMPER/PMR
- neurochecks and NIHSS per unit protocol
- stroke education packet
Subjective/Objective
Subjective Data
Date of Service: August 21, 2025
She was recently admitted to 05/25/25 with acute onset left facial droop, dysarthria, with inital NIHSS 1. She was not a TNK candidate due to recent anticaogulation usage and low NIHSS. CTA demostrated R M1-M2 occlusion. Given mild/resolving
symptoms, she was deemed not a candidate for mechanical thrombectomy. MRI demonstrated acute right frontal infarct. Apixban was restarted 05/30 and she was discharged to [facility] on 05/30/25. She was noted to have acute aphasia 06/01, at which time
she re-presented with NIHSS 3 (aphasia, dysarthria, left nasolabial fold flattening; CTA again demonstrated R M1-M2 junction. She again was not a TNK or IAT candidate. Yesterday worsening symptoms and now with dysphasia and worsening dysarthria.
Currently on heparin gtt. CTA again demonstrated R M1-M2 junction. She again was not a TNK or IAT candidate.
Objective Data
Vital Signs
Temp Pulse Resp BP Pulse Ox
98.9 F 86 18 156/71 96
08/21/25 07:43 08/21/25 07:43 08/21/25 07:43 08/21/25 07:43 08/21/25 09:00
Lab Results
08/21/25 09:13
08/20/25 12:29
PT 20.4 Sec (11.4-14.6) H 08/20/25 12:29
INR 1.73 08/20/25 12:29
APTT 45.6 Sec (23.4-35.0) H 08/21/25 09:12
Sodium 136 mmol/L (135-145) 08/20/25 12:29
Potassium 3.6 mmol/L (3.5-5.1) 08/20/25 12:29
BUN 12 mg/dl (7-17) 08/20/25 12:29
Glucose 246 mg/dl (70-99) H 08/20/25 12:29
Calcium 9.4 mg/dl (8.4-10.2) 08/20/25 12:29
Patient Allergies
Penicillins Allergy (Verified 08/20/25 11:56)
Rash
Physical Exam
-
Lethargic, however arousable, oriented to person, and place, not time
Able to state age
Follows 1- and 2-step axial appendicular crossed commands
Mild expressive aphasia and moderate dysarthria
Right gaze preference that crosses midline
Mild left nasolabial flattening
CNII-XII otherwise intact
Strength full on the right
LUE spastic hemiplegia (1/5 throughout)
LLE at least 3-4/5
Reduced sensation on the left to light touch
Data Reviewed
-
CT-A: Report Reviewed and Image Reviewed
CT Head: Report Reviewed and Image Reviewed
CT Cervical Spine: Report Reviewed and Image Reviewed
Medical Test Reports: Report Reviewed
Labs: Report Reviewed
Lipid Profile: Report Reviewed
HgbA1C: Report Reviewed
Reviewed with: Physician, Patient and Family
Old Records: Summarized
[2025-08-21 10:58] LABS: HDL Cholesterol 44 mg/dl; LDL Cholesterol, Calculated 64 mg/dl; Magnesium 1.8 mg/dl (1.6-2.3); Very Low Density Lipoprotein 26 mg/dl (0-30)
[2025-08-21 11:22] LABS: Glycohemoglobin (HgbA1c) 6.4 % (4.0-5.9)
[2025-08-21 12:01] LABS: Glucose - Point of Care 135 mg/dl (70-99)
[2025-08-21] MEDS: ZOFRAN 4 MG IV (15:37)
[2025-08-21 17:28] LABS: Glucose - Point of Care 131 mg/dl (70-99)
[2025-08-21 21:55] LABS: APTT > 200 Sec (23.4-35.0)
[2025-08-21] MEDS: TYLENOL/FEVERALL 650 MG RECTAL (23:29)
[2025-08-21] MEDS: HEPARIN 25000 UNITS/250 ML IV (23:33)
[2025-08-21 23:41] LABS: Glucose - Point of Care 128 mg/dl (70-99)
[2025-08-22] VITALS (11 sets, daily range): BP systolic 100–170; BP diastolic 48–94
[2025-08-22] MEDS: NOVOLOG FLEXPEN-LOW RESISTANCE SC ×5 (01:26→23:58)
[2025-08-22] MEDS: HEPARIN 25000 UNITS/250 ML IV (01:33)
[2025-08-22 05:59] LABS: APTT 43.7 Sec (23.4-35.0)
[2025-08-22 06:13] LABS: ALT (SGPT) 14 U/L (0-35); AST (SGOT) 20 U/L (14-36); Albumin 3.4 g/dl (3.5-5.0); Alkaline Phosphatase 91 U/L (38-126); Blood Urea Nitrogen 12 mg/dl (7-17); Calcium 8.9 mg/dl (8.4-10.2); Carbon Dioxide 26 mmol/L (22-30); Chloride 105 mmol/L (98-107); Estimated Creatinine Clearance 69 ml/min; Glucose 105 mg/dl (70-99); Potassium 3.8 mmol/L (3.5-5.1); Sodium 137 mmol/L (135-145); Total Protein 6.2 g/dl (6.3-8.2); eGFR > 60.00
[2025-08-22 06:18] LABS: Glucose - Point of Care 101 mg/dl (70-99)
[2025-08-22 06:25] LABS: Hematocrit 28.3 % (37.0-47.0); Hemoglobin 9.3 g/dL (12.0-16.0); Mean Corp Hgb Conc. 32.9 g/dL (33.0-37.0); Mean Corpuscular Volume 100.0 fL (81.0-99.0); Platelet Count 381 10^3/uL (130-400); Red Cell Dist. Width 15.5 % (11.5-14.5)
--- NOTE | 2025-08-22 07:19 | W.PN.HOSP.TC ---
Addendum entered and electronically signed by Adam Law MD 08/22/25 14:31:
Family agreed for patient to go home on home hospice. hospice will be able to admit on Thursday earliest.
Patient will need to stay in the hospital meanwhile
Family agreed for not giving any IV fluid
Family want heparin to be continued, will switch to weight-based Lovenox therapy for patient comfort.
Discussed with speech therapy and okay with liquid diet for time being as part of comfort. Remains at risk of aspiration and further complication.
Morphine small dose or ordered for pain control
Original Note:
Today's Communication/Plan
-
- NPO, per FEES - requiring GOC conversation with family re: PEG tube placement
- Continue heparin gtt, low-dose
- Maintain goal BP <220/120 with permissive hypertension
- HOB 30 degrees, nebulized saline to prevent choking on secretions
- Per speech eval, remain NPO pending FEES today
- Neurochecks & NIHSS per unit protocol
- Neurology following, appreciate recs
- Hematology consulted for hypercoag workup, appreciate recs
Assessment / Plan
Assessment / Plan
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
acute CVA in R cerebellum & R posterior medulla, now on heparin gtt.
#Acute CVA inferior R cerebellum, R posterior medulla
#Persistent R M1 occlusion, chronic L MCA/R frontal stroke
#Dysarthria, dysphagia
05/27, pt had acute infarcts in transcortical anterior R frontal lobe temporal lobe, cerebellar lacunar infarcts. At baseline, patient has residual left-sided paralysis, left-sided facial droop, some dysarthria. Recurrent issue - on 06/06 she
presented to ED from [facility] w slurred speech/word finding difficulty, and was transferred to [place]. Patient presented 08/20 due to acute worsening of dysarthria, nausea, headache. CTA head/neck 08/20: Stable right M1�M2 occlusion. CT head 08/20:
No ICH or large new CVA. Per neuro, not a candidate for thrombolysis. MRI 08/21: New large acute infarct in the inferior right cerebellum, and acute infarct in the right posterior medulla. TTE 08/21: LVEF 60-65%, no valve dz, interarterial septum
intact.
Patient s/p low-dose IV heparin gtt started 08/20.
- Continue heparin gtt, low-dose
- Maintain goal BP <220/120 with permissive hypertension
- HOB 30 degrees, nebulized saline to prevent choking on secretions
- NPO per FEES today
- Lidocaine spray for throat soreness
- Neurochecks & NIHSS per unit protocol
- Neurology following, appreciate recs
- Hematology consulted for hypercoag workup, appreciate recs
#Chronic
#HLD - restart 40mg atorvastatin when can take PO
#Essential HTN - holding home metoprolol, allowing permissive hypertension
#Hypothyroidism - continue home levothyroxine when patient able to take PO
#Paroxysmal A-fib - holding PO eliquis
#Pre-DM - prior a1c 6,1; will ctm for now
#Global
- DVT PPx: Heparin gtt
- Diet: NPO, per FEES - requiring GOC conversation with family re: PEG tube placement
- Code: DNR
- Dispo: pending PT/OT, stabilization (lives at [facility])
Anticipated Discharge: 24 - 48 hours
Subjective/Interval History
-
Date of Service: August 22, 2025
Discussed findings of MRI with patient. Patient very thirsty, wants water. Discussed that swallowing function was impacted. Complaining of some throat pain.
Objective Data
-
Labs:
Laboratory Results
08/21/25 08/22/25 08/22/25
21:16 05:30 12:10
WBC 5.4
Hgb 9.3 L
Hct 28.3 L
Plt Count 381
APTT > 200 H* 43.7 H Pending
Sodium 137
Potassium 3.8
Chloride 105
Carbon Dioxide 26
BUN 12
Creatinine 0.4 L
Glucose 105 H
Calcium 8.9
Total Bilirubin 0.4
AST 20
ALT 14
Alkaline Phosphatase 91
Vital Signs:
Vital Signs
Temp Pulse Resp BP Pulse Ox
99.3 F 95 18 148/74 93
08/22/25 03:41 08/22/25 03:41 08/22/25 03:41 08/22/25 03:41 08/22/25 03:41
I&O
08/21/25 08/22/25 08/23/25
06:59 06:59 06:59
Intake Total 225 / 225
Output Total 440 / 440
Balance -440 / -440 225 / 225
Review of Systems
-
History Source: Patient
Constitutional: Reports No Symptoms
EENT: Reports Sore Throat and Other (some mucous secretions )
Respiratory: Reports No Symptoms
Cardiac: Reports No Symptoms
Abdomen/GI: Reports No Symptoms
Breast: Reports No Symptoms
Musculoskeletal: Reports No Symptoms
Skin: Reports No Symptoms
Neuro: Reports No Symptoms
Psych: Reports Depressed
Physical Exam
-
General: Well Nourished and Appears in Distress (thirsty, sore throat )
HEENT: Normocephalic, Atraumatic and Moist Mucous Membranes
Respiratory: Clear to Auscultation
Cardiac: Regular Rhythm
GI: Soft, Nontender and Nondistended
Musculoskeletal: No Edema
Skin: Warm and Dry
Neuro: Awake, Alert, Slurred Speech, Facial Droop (L sided) and Other (L sided hemiparesis )
Psych: Anxious
Data Reviewed
-
Total Time Spent with Patient (in minutes): 15
Critical Care Time (in minutes): 45
Labs: Labs Reviewed by me
[2025-08-22 08:15] LABS: Nucleated Red Blood Cells % 0 %
[2025-08-22] MEDS: ZOFRAN 4 MG IV (08:36)
[2025-08-22 11:48] LABS: Glucose - Point of Care 119 mg/dl (70-99)
[2025-08-22] MEDS: HURRICAINE SPRAY 1 APPLIC TOPICAL (11:53)
--- NOTE | 2025-08-22 12:52 | HOSPNOTE ---
Spoke with family and they are in agreement for patient to go home with hospice. The address will be [address] [place] [id number]. The daughter will be primary caregiver. The family would like patient home on Monday 08/27. Equipment will be ordered
for delivery on Thursday. Transport will be needed. CM and Attending in agreement with plan. OOH DNR will be needed on chart. Once patient is home we will sign patient onto hospice services.
[2025-08-22 13:13] LABS: APTT 102.1 Sec (23.4-35.0)
--- NOTE | 2025-08-22 13:52 | CM ---
IA and IMM deferred. Pt is going home on hospice on Thursday
Plan: Home with [facility]
[2025-08-22] MEDS: LOVENOX 60 MG SC (14:23)
[2025-08-22] MEDS: MORPHINE SULFATE 1 MG IV (14:25)
--- NOTE | 2025-08-22 15:21 | PTOTSP ---
SPOKE WITH RN, SPEECH AND O.T. PATIENT GOING ON HOSPICE SO ACUTE CARE SKILLED P.T. WILL BE DISCONTINUED AT THIS TIME. WILL DISCHARGE FROM P.T. SERVICES.
[2025-08-22] MEDS: CARDIZEM 5 MG IV (16:24)
--- NOTE | 2025-08-22 16:26 | W.PN.NEURO.1 ---
Today's Communication / Plan
-
MRI of the brain shows a new large acute infarct in the inferior right cerebellum and acute infarct in the right posterior medulla.
A family meeting was held today with the patient's daughter and other family members along with Dr. Adam Law, and the decision was made by the family members to not go for the option of a PEG tube placement, and the family members have opted for
the patient to be transitioned to hospice care, as overall prognosis for quality of life does not appear to be good.
Will sign off. Please call if you have any question.
Neuro Assessment/Plan
Assessment
74-year-old female PMH AFIB (on AC), HTN, HLD, chronic L MCA, R frontal stroke (05/25), presenting with acute dysarthria and presyncopal episode, found to have stable R M1 occlusion.
Neurological exam notable for right gaze deviation, left nasolabial fold flattening, and left spastic hemiparesis (all baseline per daughter's report after recent stroke), however with new dysarthria and mild expressive aphasia.
CTA demonstrated stable RM1-M2 occlusion with distal reconstitution, notably seen on CTA 05/25 and 06/24 (at the time without intervention). NCHCT without evidence of hemorrhage or new large transcortical infarct, however challenging to definitively
rule out new infarct given extensive degree of prior bilateral strokes. She was not a candidate for TNK or IAT.
Differential includes interval infarct, hypoperfusional episode, vs recrudescence of recent right frontal stroke (05/25), given presenting symptoms of nausea and presyncope (infection/dehydration?). MRI will be helpful in differentiating above.
If evidence of interval infarct, potentially suggestive of apixiban failure, assuming that she had been taking this regularly twice daily as prescribed; will consider addition of ASA or alternative AC. Stroke etiology highly likely cardioembolic
from known AFIB, although will evaluate for LV thrombus with TTE.
Plan
- continue heparin gtt (12 U/kg/h) given inability to tolerate PO apixiban
- obtain MRI brain without contrast
- restart atorvastatin 40 mg once able to take PO
- obtain TTE with contrast to evaluate for LV thrombus
- consider hypercoagulable workup if interval stroke given recent stroke while on apixiban
- PT/OT/TURN OPERATOR/PMR
- neurochecks and NIHSS per unit protocol
- stroke education packet
Subjective/Objective
Subjective Data
Date of Service: August 22, 2025
74-year-old female PMH AFIB (on AC), HTN, HLD, chronic L MCA, R frontal stroke (05/25), presenting with acute dysarthria and presyncopal episode, found to have stable R M1 occlusion.
Neurological exam notable for right gaze deviation, left nasolabial fold flattening, and left spastic hemiparesis (all baseline per daughter's report after recent stroke), however with new dysarthria and mild expressive aphasia.
CTA demonstrated stable RM1-M2 occlusion with distal reconstitution, notably seen on CTA 05/25 and 06/24.
MRI of the brain shows a new large acute infarct in the inferior right cerebellum and acute infarct in the right posterior medulla.
At home, the patient was on anticoagulation for atrial fibrillation.
A family meeting was held today with the patient's daughter and other family members along with Dr. Adam Law, and the decision was made by the family members to not go for the option of a PEG tube placement, and the family members have opted for
the patient to be transitioned to hospice care, as overall prognosis for quality of life does not appear to be good.
Objective Data
Vital Signs
Temp Pulse Resp BP Pulse Ox
37.3 C 93 12 123/64 92
08/22/25 15:11 08/22/25 15:11 08/22/25 15:11 08/22/25 15:11 08/22/25 15:11
Lab Results
08/22/25 05:30
08/22/25 05:30
PT 20.4 Sec (11.4-14.6) H 08/20/25 12:29
INR 1.73 08/20/25 12:29
APTT 102.1 Sec (23.4-35.0) H 08/22/25 12:37
Sodium 137 mmol/L (135-145) 08/22/25 05:30
Potassium 3.8 mmol/L (3.5-5.1) 08/22/25 05:30
BUN 12 mg/dl (7-17) 08/22/25 05:30
Glucose 105 mg/dl (70-99) H 08/22/25 05:30
Calcium 8.9 mg/dl (8.4-10.2) 08/22/25 05:30
LDL Cholesterol, Calc 64 mg/dl 08/21/25 09:12
Patient Allergies
Penicillins Allergy (Verified 08/20/25 11:56)
Rash
Medications
-
Active Medications
[2025-08-22] MEDS: CARDIZEM 125 IV (16:40)
--- NOTE | 2025-08-22 16:42 | PTCARENOTE ---
Pt tele alarm noted for HRs 160s-190s sustained. BP 131/94. SpO2 97%. Hospitalist notified. EKG obtained showing afib RVR. 5mg IV Diltiazem ordered and given without improvement in HR. IV Diltiazem gtt ordered and started at 5mg/hr. Order is for do
not titrate. Family updated over the phone. Pt remains in afib RVR HR 160s-180s at this time. Family now at bedside. Pt remains DNR.
[2025-08-22 17:45] LABS: Glucose - Point of Care 116 mg/dl (70-99)
[2025-08-22] MEDS: HURRICAINE SPRAY TOPICAL (18:02)
[2025-08-22] MEDS: LOPRESSOR 5 MG IV (19:30)
[2025-08-22] MEDS: TYLENOL/FEVERALL 650 MG RECTAL (20:32)
[2025-08-22 23:53] LABS: Glucose - Point of Care 125 mg/dl (70-99)
[2025-08-23] VITALS (8 sets, daily range): BP systolic 105–148; BP diastolic 49–86
--- NOTE | 2025-08-23 00:37 | W.PN.UPDATE ---
Addendum entered and electronically signed by GARRETT Hanley 08/23/25 06:22:
0430 HR 160-180s again
Will restart cardizem gtt @10 and watch closely for pauses.
0500 HR 80-90 in NSR
0600 HR still NSR 80s will drop rate to 5ml
Original Note:
Update Note
Progress Note Update
Prior to 7pm pt went into rapid afib and cardizem gtt initiated at 7.5mg/hr. RN reports at 1930 HR remains 150s-180. Pt takes metoprolol po at home (cannot take oral now due to CVA)--> one dose lopressor iv ordered. This did have slight better
effect as it brought HR down to 120s at times. Cardizem gtt increased to 15mg/hr around 2144. This too seemed to do little for HR. Initally this provider ordered lopressor iv q6 hr iv ATC to start at midnight but shortly before midnight (2350)pt had
a 6.42 sec pause. Unclear if this was an attempt at a conversion pause but hr returned to 150s. Lopressor iv ordered dc'd. Then around 3 pt had another 4.62 sec pause. Cardizem gtt placed on hold for now. Through all this pt asymptomatic.
--- NOTE | 2025-08-23 01:05 | PTCARENOTE ---
Addendum entered by Shell Patel RN 08/23/25 04:59:
tele alarming 190s, BOOMSWING OPERATOR made aware. cardizem drip reordered @ 10 mg/hr. bp 113/77 HR 80s-90s NSR.
Original Note:
received pt from [facility] on cardizem drip @ 7.5 mg/hr. at 1930 pt HR sustaining 150s-180s. pt denies CP and palpitations, BOOMSWING OPERATOR made aware. 5 mg IV lopressor ordered and given. HR continues to sustain 120s-150s, cardizem drip increased to 15 mg/hr
per BOOMSWING OPERATOR order at 2145. at 2350 pt had 6.45 second pause then HR returned to 150s, BOOMSWING OPERATOR made aware. at 0004 pt had another 4.62 second pause, BOOMSWING OPERATOR made aware again. cardizem drip d/c, pt HR sustaining 130s-160s. pt continues to remain asymptomatic.
no further orders at this time.
[2025-08-23] MEDS: LOVENOX 60 MG SC (02:49)
[2025-08-23] MEDS: HURRICAINE SPRAY 1 APPLIC TOPICAL ×3 (02:50→20:32)
[2025-08-23 05:52] LABS: Glucose - Point of Care 159 mg/dl (70-99)
--- NOTE | 2025-08-23 07:20 | W.PN.HOSP.TC ---
Today's Communication/Plan
-
- Palliative full liquids
- Diltiazem at rate of 5 for afib
- Ongoing GOC/hospice conversations with family today
Assessment / Plan
Assessment / Plan
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
acute CVA in R cerebellum & R posterior medulla, now with hospice transition ongoing.
#Acute CVA inferior R cerebellum, R posterior medulla
#Persistent R M1 occlusion, chronic L MCA/R frontal stroke
#Dysarthria, dysphagia
05/27, pt had acute infarcts in transcortical anterior R frontal lobe temporal lobe, cerebellar lacunar infarcts. At baseline, patient has residual left-sided paralysis, left-sided facial droop, some dysarthria. Recurrent issue - on 06/06 she
presented to ED from [facility] w slurred speech/word finding difficulty, and was transferred to [place]. Patient presented 08/20 due to acute worsening of dysarthria, nausea, headache. CTA head/neck 08/20: Stable right M1�M2 occlusion. CT head 08/20:
No ICH or large new CVA. Per neuro, not a candidate for thrombolysis. MRI 08/21: New large acute infarct in the inferior right cerebellum, and acute infarct in the right posterior medulla. TTE 08/21: LVEF 60-65%, no valve dz, interarterial septum
intact. Patient s/p low-dose IV heparin gtt started 08/20-. Per SLT, pt needs to remain strict NPO.
Conversation with family 08/22 - favoring hospice, not PEG tube.
- Maintain goal BP <220/120 with permissive hypertension
- HOB 30 degrees, nebulized saline to prevent choking on secretions
- Allow palliative full liquid diet
- Lidocaine spray for throat soreness
- Neurology signed off
#Paroxysmal atrial fibrillation
08/22 afternoon pt into afib with HR in the 180s. Discussed w family, started diltiazem drip to somewhat stabilize. Overnight provider titrated it 08/22, by 08/23 am HR in the 80s and on dilt at a rate of 5.
Today - HR 80s, BP 112/63
- Continue diltiazem drip at rate of 5-10 until formally admitting pt to hospice
#Chronic
#HLD - N/A, not restarting PO 40mg atorvastatin
#Essential HTN - holding home metoprolol, allowing permissive hypertension
#Hypothyroidism - N/A, not restarting PO med
#Pre-DM - prior a1c 6,1; will ctm for now
#Global
- DVT PPx: lovenox
- Diet: palliative full liquids
- Code: DNR
- Dispo: likely will admit to hospice
Anticipated Discharge: > 48 hours
Subjective/Interval History
-
Date of Service: August 23, 2025
Overnight, diltiazem drip titrated by overnight attending to max of 15, then down to 5 as HR stabilized in the 80s. Family in early evening reiterated hospice wishes.
This am, pt c/o dry mouth. Asking for something to drink. Asking where daughters are. Denies pain or chest discomfort.
Objective Data
-
Labs:
Laboratory Results
08/23/25
06:00
WBC Pending
Hgb Pending
Hct Pending
Plt Count Pending
Sodium Pending
Potassium Pending
Chloride Pending
Carbon Dioxide Pending
BUN Pending
Creatinine Pending
Glucose Pending
Calcium Pending
Total Bilirubin Pending
AST Pending
ALT Pending
Alkaline Phosphatase Pending
Vital Signs:
Vital Signs
Temp Pulse Resp BP Pulse Ox
97.8 F 88 12 112/63 93
08/23/25 03:23 08/23/25 06:01 08/23/25 03:23 08/23/25 06:01 08/23/25 03:23
I&O
08/22/25 08/23/25 08/24/25
06:59 06:59 06:59
Intake Total 225 / 225
Balance 225 / 225
Review of Systems
-
Unable to obtain full review of systems at this time due to: Dementia and Acuity
History Source: Patient
Constitutional: Reports No Symptoms
EENT: Reports Sore Throat and Other (some mucous secretions )
Respiratory: Reports No Symptoms
Cardiac: Reports No Symptoms
Abdomen/GI: Reports No Symptoms
Breast: Reports No Symptoms
Musculoskeletal: Reports No Symptoms
Skin: Reports No Symptoms
Neuro: Reports Other
Psych: Reports Depressed and Anxious
Physical Exam
-
General: Well Nourished, Slurred Speech and Other (complaining of thirst )
HEENT: Normocephalic, Atraumatic and Moist Mucous Membranes
Respiratory: Clear to Auscultation
Cardiac: Regular Rhythm
GI: Soft, Nontender and Nondistended
Musculoskeletal: No Edema
Skin: Warm and Dry
Neuro: Awake, Alert, Slurred Speech, Facial Droop (L sided) and Other (L sided hemiparesis )
Psych: Anxious
Data Reviewed
-
Total Time Spent with Patient (in minutes): 10
Critical Care Time (in minutes): 45
Labs: Labs Reviewed by me
[2025-08-23] MEDS: NOVOLOG FLEXPEN-LOW RESISTANCE 1 UNITS SC (07:27)
[2025-08-23 09:20] LABS: Hematocrit 33.1 % (37.0-47.0); Hemoglobin 10.4 g/dL (12.0-16.0); Mean Corp Hgb Conc. 31.4 g/dL (33.0-37.0); Mean Corpuscular Volume 100.3 fL (81.0-99.0); Nucleated Red Blood Cells % 0 %; Platelet Count 458 10^3/uL (130-400); Red Cell Dist. Width 15.6 % (11.5-14.5)
--- NOTE | 2025-08-23 09:47 | CM ---
Reviewed chart. Pt is on Cardizem gtt. DC plan unchanged
Plan: Home with hospice on Thursday. Hospice to arrange transportation home
[2025-08-23 10:37] LABS: ALT (SGPT) 13 U/L (0-35); AST (SGOT) 17 U/L (14-36); Albumin 3.7 g/dl (3.5-5.0); Alkaline Phosphatase 105 U/L (38-126); Blood Urea Nitrogen 18 mg/dl (7-17); Calcium 9.0 mg/dl (8.4-10.2); Carbon Dioxide 26 mmol/L (22-30); Chloride 103 mmol/L (98-107); Estimated Creatinine Clearance 69 ml/min; Glucose 140 mg/dl (70-99); Potassium 3.8 mmol/L (3.5-5.1); Sodium 140 mmol/L (135-145); Total Protein 6.5 g/dl (6.3-8.2); eGFR > 60.00
[2025-08-23 12:36] LABS: Glucose - Point of Care 146 mg/dl (70-99)
[2025-08-23] MEDS: NOVOLOG FLEXPEN-LOW RESISTANCE SC (12:49)
[2025-08-23] MEDS: OFIRMEV 100 IV ×2 (15:35→23:42)
[2025-08-23] MEDS: LOVENOX SC (15:55)
--- NOTE | 2025-08-23 19:25 | PTCARENOTE ---
LATE ENTRY - Assumed care of patient at aprox 1500. After speaking with daughter at bedside. Family would like patient to be comfort care until transition to hospice care on Thursday. TT sent to Dr Law and resident - orders changed to reflect.
[2025-08-24] MEDS: LOPRESSOR 5 MG IV ×3 (00:18→06:19)
[2025-08-24] MEDS: ROBINUL 0.2 MG IV ×2 (00:45→10:14)
[2025-08-24 00:54] VITALS: BP 109/70
--- NOTE | 2025-08-24 02:01 | W.PN.UPDATE ---
Update Note
Progress Note Update
~ 23:30 Pt temp 100.4, given Ofirmev 1 g IV PRN dose, repeat temp 98.4.
~ midnight - Patient w/elevated HR 160-200, given PRN Lopressor 5 mg IV.
Patient w/no chest pain, and no palpitations per RN.
~ 1:30 am - HR remains in the 180-200's, BP 125/60. Temp 98.4, BP 109/70. Ordered one time dose Lopressor 5mg IV x 1. Patient did endorse feeling palpitation.
~ 2 am - HR dropped to 140-160's, asked to get rectal temp, 101.9. Ordered Toradol 15 mg IV x 1 dose. One hour repeat temperature 98.2. HR 117, BP 100/64. 97% on 5L NC
~ 5 am - Rechecked rectal temp, 101.2, patient given PRN Ofirmev 1 g.
[2025-08-24 02:04] VITALS: BP 125/60
[2025-08-24] MEDS: TORADOL 15 MG IV (02:40)
--- NOTE | 2025-08-24 03:03 | PTCARENOTE ---
Pt Zanv=672.4 at around 2330. Pt given Ofirmev as per order. Pt's HR started to increase to 160-180s. Lopressor 5mg IV given and the HR persisted in the [id number]. Pt remains asymptomatic. Oral temp after Ofirmev=98.4. KEYBOARD OPERATOR on the floor to see
the pt, asked for rectal temp check. At 0200, pt's rectal Eofx=994.9 and HR continues to be in the 170-190s. Another 5mg IV Lopressor given for HR and Toradol 15mg given for Temp as per order. Pt has been incontinent X2 for moderate to large amount
of urine. Will continue to monitor the pt.
[2025-08-24 03:29] VITALS: BP 100/64
[2025-08-24] MEDS: HURRICAINE SPRAY 1 APPLIC TOPICAL (04:51)
[2025-08-24] MEDS: OFIRMEV 100 IV ×2 (05:43→13:05)
--- NOTE | 2025-08-24 07:35 | W.PN.HOSP.TC ---
Today's Communication/Plan
-
- Consider inpatient hospice given unconrtolled afib & fevers
Assessment / Plan
Assessment / Plan
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
acute CVA in R cerebellum & R posterior medulla, now with comfort care/hospice transition ongoing.
#Intermittent FUO
Overnight 08/23, pt found to be febrile 100.4. Pt given IV tylenol, toradol. In am, temperature 101.2, but trended down to wnl s/p tylenol. Unknown etiology, given plan for home hospice 08/27, will not pursue aggressive workup. Will provide
supportive care. No new sx (n/v, diarrhea, worsening cough, abd pain) suggesting acute process.
Today - 98.0
- Continue to monitor, will defer workup given hospice planning
- IV tylenol PRN
#Acute CVA inferior R cerebellum, R posterior medulla
#Persistent R M1 occlusion, chronic L MCA/R frontal stroke
#Dysarthria, dysphagia
05/27, pt had acute infarcts in transcortical anterior R frontal lobe temporal lobe, cerebellar lacunar infarcts. At baseline, patient has residual left-sided paralysis, left-sided facial droop, some dysarthria. Recurrent issue - on 06/06 she
presented to ED from [facility] w slurred speech/word finding difficulty, and was transferred to [place]. Patient presented 08/20 due to acute worsening of dysarthria, nausea, headache. CTA head/neck 08/20: Stable right M1�M2 occlusion. CT head 08/20:
No ICH or large new CVA. Per neuro, not a candidate for thrombolysis. MRI 08/21: New large acute infarct in the inferior right cerebellum, and acute infarct in the right posterior medulla. TTE 08/21: LVEF 60-65%, no valve dz, interarterial septum
intact. Patient s/p low-dose IV heparin gtt started 08/20-. Per SLT, pt needs to remain strict NPO.
Conversation with family 08/22 - favoring hospice, not PEG tube.
- Maintain goal BP <220/120 with permissive hypertension
- HOB 30 degrees, nebulized saline to prevent choking on secretions
- Allow palliative full liquid diet
- Lidocaine spray for throat soreness
#Paroxysmal atrial fibrillation
08/22 afternoon pt into afib with HR in the 180s. Discussed w family, started diltiazem drip to somewhat stabilize. Overnight provider titrated it 08/22, by 08/23 am HR in the 80s and on dilt at a rate of 5. 08/23 pt switched to metoprolol PRN.
Required metoprolol x2 overnight.
Today - pt with HR 175 in s/o fever/discomfort likely triggering a fib
- Metoprolol IV 5mg q4hr PRN
#Chronic
#HLD - N/A, not restarting PO 40mg atorvastatin
#Essential HTN - holding home metoprolol, allowing permissive hypertension
#Hypothyroidism - N/A, not restarting PO med
#Pre-DM - prior a1c 6,1; will ctm for now
#Global
- DVT PPx: lovenox
- Diet: palliative full liquids
- Code: DNR
- Dispo: was planning for home hospice, goal home on 08/27 --- consider inpatient hospice given unconrtolled afib & fevers
Anticipated Discharge: > 48 hours
Subjective/Interval History
-
Date of Service: August 24, 2025
Overnight:
~ 23:30 Pt temp 100.4, given Ofirmev 1 g IV PRN dose, repeat temp 98.4.
~ midnight - Patient w/elevated HR 160-200, given PRN Lopressor 5 mg IV.
Patient w/no chest pain, and no palpitations per RN.
~ 1:30 am - HR remains in the 180-200's, BP 125/60. Temp 98.4, BP 109/70. Ordered one time dose Lopressor 5mg IV x 1. Patient did endorse feeling palpitation.
~ 2 am - HR dropped to 140-160's, asked to get rectal temp, 101.9. Ordered Toradol 15 mg IV x 1 dose. One hour repeat temperature 98.2. HR 117, BP 100/64. 97% on 5L NC
~ 5 am - Rechecked rectal temp, 101.2, patient given PRN Ofirmev 1 g.
This am:
Pt a bit confused this am. Pointing to window, difficult to understand. Asking for water. Per tech at bedside, just attempted and patient was unable to use straw (she was yesterday). They have been using moistening mouth swabs. Patient denies pain.
Objective Data
-
Vital Signs:
Vital Signs
Temp Pulse Resp BP Pulse Ox
101.2 F H 175 20 106/51 97
08/24/25 05:02 08/24/25 06:19 08/24/25 03:29 08/24/25 06:19 08/24/25 03:29
I&O
08/23/25 08/24/25 08/25/25
06:59 06:59 06:59
Intake Total 920 / 920
Balance 920 / 920
Review of Systems
-
Unable to obtain full review of systems at this time due to: Dementia and Acuity
History Source: Patient
Constitutional: Reports Other (thirsty)
EENT: Reports Sore Throat and Other (dry mouth)
Respiratory: Reports Cough
Cardiac: Reports No Symptoms
Abdomen/GI: Reports No Symptoms
Genitourinary: Reports No Symptoms
Musculoskeletal: Reports No Symptoms
Skin: Reports No Symptoms
Neuro: Reports Other (slurred speech, impaired swallowing)
Physical Exam
-
General: Well Nourished, Slurred Speech and Other (complaining of thirst )
HEENT: Normocephalic, Atraumatic and Moist Mucous Membranes
Respiratory: Clear to Auscultation
Cardiac: Regular Rhythm
GI: Soft, Nontender and Nondistended
Musculoskeletal: No Edema
Skin: Warm and Dry
Neuro: Awake, Alert, Slurred Speech, Facial Droop (L sided) and Other (L sided hemiparesis )
Psych: Confused and Anxious
Data Reviewed
-
Total Time Spent with Patient (in minutes): 10
Critical Care Time (in minutes): 45
Labs: Labs Reviewed by me
[2025-08-24 07:40] VITALS: BP 103/65
[2025-08-24] MEDS: MORPHINE SULFATE 1 MG IV (10:14)
[2025-08-24] MEDS: HURRICAINE SPRAY TOPICAL (10:26)
[2025-08-24 11:25] VITALS: BP 97/56
--- NOTE | 2025-08-24 11:34 | W.DCSUMMARY ---
Discharge Summary
Discharge Data
Date of Admission: 08/20/25
Date of Discharge: 08/24/25
-
Pending Results: No
Hospital Course
Discharging Physician : Adam Law MD ; Aleisha Albright MD
Disposition : inpatient hospice
Primary care physician : N/A
Principal Discharge diagnosis : Acute CVA inferior R cerebellum, R posterior medulla; a fib
Chronic Discharge diagnosis : Persistent R M1 occlusion, chronic L MCA/R frontal stroke, essential hypertension, HLD, hypothyroidism
Hospital Course :
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
acute CVA in R cerebellum & R posterior medulla leading to significant dysphagia, now being admitted for inpatient hospice care.
Patient presented on 08/20 due to acute worsening of dysarthria, nausea, headache. Of note, patient had prior acute infarcts on 05/27/2025 and transcortical anterior right frontal lobe/temporal lobe and cerebellar lacunar infarcts, leaving patient
with residual left-sided paralysis, left-sided facial droop, and some dysarthria. On 06/06 she had also presented to the ED from [facility] with slurred speech and word finding difficulty, and was found to have persistence of the same
thrombus/occlusion in the M1�M2 distribution. On 08/20 admission, CTA head/neck again demonstrated stable right M1�M2 occlusion. CT head did not demonstrate a large new CVA or ICH. Neuro was consulted, patient deemed not a candidate for
thrombolysis. MRI head was obtained on 08/21, which demonstrated new large acute infarct in the inferior right cerebellum, and acute infarct in the right posterior medulla. TTE on 08/21 demonstrated preserved LVEF (60�65%), no valvular disease,
and intact interarterial septum. Location of patient's new CVA in posterior medulla correspond with patient's new, worsened dysphagia and inability to clear secretions/wet cough. Patient also with dysarthria. Patient had been on Eliquis at
baseline, unclear if this event represented Eliquis failure. Patient was started on heparin drip and admitted for further monitoring.
Patient was evaluated by SLT, which deemed her strict n.p.o. given high aspiration risk. Prognosis was indicated to involve a likely PEG tube placement to allow patient to receive adequate nutrition, at least in the short-term. Per goals of care
discussion with family on 08/22, along with family review of patient's living will and discussion with patient, the decision was made not to proceed with PEG tube placement. Family was connected with hospice entrance attendant, and tentative plan was made
for patient to be discharged home with home hospice on 08/27.
However, patient's course was complicated by A-fib with RVR beginning evening of 08/22. Patient had HR into the 180s. Patient was started on diltiazem drip, which was titrated at a rate of 5-15, with patient HR stabilizing in the 80s by 08/23
morning. Diltiazem was discontinued, and patient was transition to as needed IV metoprolol for rate control. Overnight 08/23, patient spiked fevers to peak of 101.2 (resolved s/p Tylenol) and again went into A-fib with RVR with HR was into the
170s. Patient was given multiple doses of as needed metoprolol. On 08/24 AM, patient was longer afebrile, but did have elevated HR over 100. Patient denied any chest pain or symptoms of palpitations, but continually endorsed feeling thirsty.
Patient slightly confused, continually asking what happened and where her family was. On 08/24 morning, attempted to give patient a sip of water through a straw (patient had been transitioned on 08/22 to palliative full liquid diet for
comfort�although this was largely unsuccessful given dysphagia). Patient immediately began to choke on water after sip/gurgling sounds apparent in throat. Patient also endorsing throat pain, benzocaine spray/Cepacol helping minimally.
After discussion with family on 08/24, decision was made to transfer patient to inpatient hospice. Family repeatedly expressed primary concern is keeping patient comfortable, avoiding pain. At time of transfer, patient's vitals were stable (HR 94,
BP 97/56, RR 18, temp 98, O2 sat 95% on room air).
Important imaging findings :
MRI 08/21:
New large acute infarct in the inferior right cerebellum, and acute infarct in the right posterior medulla.
Chronic bilateral cerebral infarctions.
CTA head/neck 08/20:
Occlusive thrombus of the junction of the M1 and M2 segments of the right middle cerebral artery with some reconstitution of the more distal right M2 and M3 segments. Similar CT appearance compared to the previous stroke alert CTA head and neck
angiogram from 06/01/2025.
CT head 08/20:
Large chronic bilateral cerebral infarcts primarily in the bilateral MCA distribution.
Procedure findings : N/A
Discharge Plan
-
Patient Disposition: Hospice - Inpatient
Discharge Diagnosis/Procedures: Acute CVA inferior R cerebellum, R posterior medulla ; a fib
Condition: Serious
Referrals:
UNKNOWN - PT DOES,NOT KNOW [Family Provider]
Prescriptions:
Discontinued
levothyroxine [Synthroid] 125 mcg Tablet
125 mcg PO DAILY
atorvastatin [Lipitor] 40 mg Tablet
40 mg PO QPM
acetaminophen 650 mg Tablet Extended Release
650 mg PO Q4HPRN PRN (Reason: mild pain)
melatonin 10 mg Tablet
3 mg PO HSPRN PRN (Reason: sleep)
Eliquis 5 mg Tablet
5 mg PO BID
cyanocobalamin (vitamin B-12) 1,000 mcg Tablet
1,000 mcg PO DAILY
bisacodyl [Dulcolax (bisacodyl)] 10 mg Suppository
10 mg VT DAILYPRN PRN (Reason: constipation)
donepezil 5 mg Tablet
5 mg PO HS
trazodone 50 mg Tablet
50 mg PO HS
sertraline 100 mg Tablet
100 mg PO DAILY
thiamine HCl (vitamin B1) 100 mg Tablet
100 mg PO DAILY
folic acid 400 mcg Tablet
0.4 mg PO DAILY
magnesium hydroxide [Milk of Magnesia] 400 mg/5 mL Suspension
15 ml PO DAILY PRN (Reason: constipation)
lidocaine [Lidoderm] 5 % Adhesive Patch,Medicated
1 patch TOPICAL DAILY
Rx Instructions:
Left shoulder
metoprolol tartrate 25 mg Tablet
25 mg PO BID
mirtazapine 7.5 mg Tablet
7.5 mg PO DAILY
cholecalciferol (vitamin D3) [Vitamin D3] 25 mcg (1,000 unit) Tablet
25 mcg PO DAILY
Discharge Orders:
Discharge Patient (As Directed); Ordered 08/24/25
Ordered By: Aleisha Albright
Discharge Date and Time
Print Language: ICELANDIC
[2025-08-24] MEDS: ZOFRAN 4 MG IV (13:05)
== END 2025-08-24 14:19 | disposition hospice, inpatient (51) | DRG 65 ==
LOC: 4 EAST ACU 18:00
PROVIDERS: Emergency Medicine; ADMITTING PHYSICIAN Internal Medicine; ATTENDING PHYSICIAN Hospitalist; CONSULT PHYSICIAN Student in an Organized Health Care Education/Training Program; EMERGENCY PHYSICIAN Emergency Medicine
DX: I63.9 Cerebral infarction, unspecified (principal); I69.354 Hemiplegia and hemiparesis following cerebral infarction affecting left non-dominant side; I48.0 Paroxysmal atrial fibrillation; I10 Essential (primary) hypertension; E78.5 Hyperlipidemia, unspecified; E03.9 Hypothyroidism, unspecified; R13.10 Dysphagia, unspecified; F41.9 Anxiety disorder, unspecified; R73.03 Prediabetes; Z96.649 Presence of unspecified artificial hip joint; Z96.653 Presence of artificial knee joint, bilateral; Z88.0 Allergy status to penicillin; Z79.01 Long term (current) use of anticoagulants; F17.200 Nicotine dependence, unspecified, uncomplicated; H51.0 Palsy (spasm) of conjugate gaze; R29.712 NIHSS score 12; R47.01 Aphasia; Z66 Do not resuscitate
CPT/HCPCS: 70450; 70496; 70498; 70551; 80053; 80061; 81003; 81015; 82962; 83036; 83735; 84484; 85025; 85027; 85610; 85730; 92610; 92612; 93005; 93308; 93321; 93325; 97163; 97167; 99285; Q9967

== ENCOUNTER 2025-08-24 14:21 | Inpatient (IN) | payer OTHER, SELFPAY ==
--- NOTE | 2025-08-24 13:53 | HPS.HSE ---
Family Physician
-
Family Physician: INTERVIEWE UNKNOWN - PT NOT
Chief Complaint
-
Acute CVA inferior R cerebellum, R posterior medulla; a fib
History of Present Illness
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
acute CVA in R cerebellum & R posterior medulla leading to significant dysphagia, now being admitted for inpatient hospice care.
Patient presented on 08/20 due to acute worsening of dysarthria, nausea, headache. Of note, patient had prior acute infarcts on 05/27/2025 and transcortical anterior right frontal lobe/temporal lobe and cerebellar lacunar infarcts, leaving patient
with residual left-sided paralysis, left-sided facial droop, and some dysarthria. On 06/06 she had also presented to [facility] ED from [facility] with slurred speech and word finding difficulty, and was found to have persistence of the same
thrombus/occlusion in the M1�M2 distribution. On 08/20 admission, CTA head/neck again demonstrated stable right M1�M2 occlusion. CT head did not demonstrate a large new CVA or ICH. Neuro was consulted, patient deemed not a candidate for
thrombolysis. MRI head was obtained on 08/21, which demonstrated new large acute infarct in the inferior right cerebellum, and acute infarct in the right posterior medulla. TTE on 08/21 demonstrated preserved LVEF (60�65%), no valvular disease,
and intact interarterial septum. Location of patient's new CVA in posterior medulla correspond with patient's new, worsened dysphagia and inability to clear secretions/wet cough. Patient also with dysarthria. Patient had been on Eliquis at
baseline, unclear if this event represented Eliquis failure. Patient was started on heparin drip and admitted for further monitoring.
Patient was evaluated by SLT, which deemed her strict n.p.o. given high aspiration risk. Prognosis was indicated to involve a likely PEG tube placement to allow patient to receive adequate nutrition, at least in the short-term. Per goals of care
discussion with family on 08/22, along with family review of patient's living will and discussion with patient, the decision was made not to proceed with PEG tube placement. Family was connected with hr coordinator, and tentative plan was made
for patient to be discharged home with home hospice on 08/27.
However, patient's course was complicated by A-fib with RVR beginning evening of 08/22. Patient had HR into the 180s. Patient was started on diltiazem drip, which was titrated at a rate of 5-15, with patient HR stabilizing in the 80s by 08/23
morning. Diltiazem was discontinued, and patient was transition to as needed IV metoprolol for rate control. Overnight 08/23, patient spiked fevers to peak of 101.2 (resolved s/p Tylenol) and again went into A-fib with RVR with HR was into the
170s. Patient was given multiple doses of as needed metoprolol. On 08/24 AM, patient was longer afebrile, but did have elevated HR over 100. Patient denied any chest pain or symptoms of palpitations, but continually endorsed feeling thirsty.
Patient slightly confused, continually asking what happened and where her family was. On 08/24 morning, attempted to give patient a sip of water through a straw (patient had been transitioned on 08/22 to palliative full liquid diet for
comfort�although this was largely unsuccessful given dysphagia). Patient immediately began to choke on water after sip/gurgling sounds apparent in throat. Patient also endorsing throat pain, benzocaine spray/Cepacol helping minimally.
After discussion with family on 08/24, decision was made to transfer patient to inpatient hospice. Family repeatedly expressed primary concern is keeping patient comfortable, avoiding pain. At time of transfer, patient's vitals were stable (HR 94,
BP 97/56, RR 18, temp 98, O2 sat 95% on room air).
Medical History
Past Medical History
Past Medical History: Reports Other
Additional Past Medical History:
CVA (Left MCA territory old infarct,small old right parietal lobe infarct) 2013
HTN
HLD
Hypothyroidism
Paroxysmal A-fib
Prediabetes
Anxiety
Former smoker 45-year 1.5 pack/day quit age 64
Past Surgical History: Reports Other
Additional Past Surgical History:
Patent ductus arteriosus repair 1954
Cholecystectomy
Throat surgeries to remove polyps
Hip replacement
Bilateral knee replacement
Right hand carpal tunnel
Social History
Tobacco: Former Smoker (Former smoker 45-year 1.5 pack/day quit age 64)
Alcohol: Occasional (2-3 times a month)
Personal:
Living: With Family
Employment: Retired
Family History
Family History: Not pertinent
Allergies / Home Medications
Allergies reflects when Allergies were last updated in [employer].
Home Medications with original date entered in [employer]
Allergy/Medication List:
Allergies
Allergy/AdvReac Type Severity Reaction Status Date / Time
Penicillins Allergy Rash Verified 08/20/25 11:56
Home Medications
levothyroxine 125 mcg tablet (Synthroid) 125 mcg PO DAILY Thyroid 10/08/16
acetaminophen 650 mg tablet,extended release 650 mg PO Q4HPRN PRN mild pain 05/25/25
apixaban 5 mg tablet (Eliquis) 5 mg PO BID Blood Clot Prevention/Tx 05/25/25
atorvastatin 40 mg tablet (Lipitor) 40 mg PO QPM High Cholesterol 05/25/25
losartan 50 mg tablet 50 mg PO DAILY Blood Pressure 05/25/25
melatonin 10 mg tablet 10 mg PO HSPRN PRN sleep 05/25/25
therapeutic multivitamin 1 tab PO DAILY Supplement 05/25/25
venlafaxine 225 mg tablet,extended release 24 hr 225 mg PO DAILY Mental Health/Anxiety 05/25/25
bisacodyl 10 mg rectal suppository (Dulcolax (bisacodyl)) 10 mg [place] DAILYPRN PRN constipation 06/01/25
bisacodyl 5 mg tablet,delayed release (Dulcolax (bisacodyl)) 10 mg PO DAILYPRN PRN constipation 06/01/25
cyanocobalamin (vitamin B-12) 1,000 mcg tablet 1,000 mcg PO DAILY 06/01/25
docusate sodium 100 mg capsule (Colace) 100 mg PO BID 06/01/25
sennosides 8.6 mg tablet (senna) 17.2 mg PO NOON 06/01/25
Review of Systems
-
A 12 point ROS was completed and negative except as noted: Yes
Physical Exam
Physical Exam
General: Well Developed and Appears in Distress
HEENT: NormoCephalic and Anicteric
Respiratory: Clear and Non Labored Respirations
Cardiac: Irregular Rhythm and Tachycardia
GI: Soft, Non Tender and Non Distended
Musculoskeletal: No Edema
Skin: Warm and Dry
Neuro: Awake and Alert
Psych: Anxious
Impression/Plan
-
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
acute CVA in R cerebellum & R posterior medulla leading to significant dysphagia, now being admitted for inpatient hospice care.
Problems:
#Acute CVA inferior R cerebellum, R posterior medulla w profound dysphagia/dysarthria
#Afib with RVR
#Intermittent FUO
#Persistent R M1 occlusion, chronic L MCA/R frontal stroke
#HLD
#Essential HTN
#Hypothyroidism
#Pre-DM
Plan:
- Discussed with family members (daughter Eunice as primary point of contact) & hr coordinator - patient qualifies for inpatient hospice and family opts for inpatient hospice
- Maintain goal of patient comfort & minimizing pain
- Morphine hospice protocol
- Full liquid diet for comfort
--- NOTE | 2025-08-24 14:54 | HOSPNOTE ---
patient meets criteria for [facility] level of care for hospice for symptom management of pain and SOB. Consents signed with daughter Svetlana. Awaiting transfer to [facility]
--- NOTE | 2025-08-24 14:54 | PTCARENOTE ---
Pt admitted to inpatient hospice. Chart flipped. Report called to ALBINA Ramirez on , pt to be transferred into room 2127.
[2025-08-24 14:56] VITALS: BP 116/56
[2025-08-24] MEDS: MORPHINE SULFATE 2 MG IV ×2 (15:17→17:37)
[2025-08-24] MEDS: ATIVAN 2 MG IV (17:37)
--- NOTE | 2025-08-24 18:37 | PTCARENOTE ---
pt came to room 2128 via bed, family at bedside; repositioned and medicated per OCT;
[2025-08-24 20:44] VITALS: BP 116/53
--- NOTE | 2025-08-24 21:43 | HOSPNOTE ---
Patient is admitted to inpatient hospice. Patient will be seen by hospice daily.
[2025-08-25] MEDS: ROBINUL 0.2 MG IV ×3 (02:25→19:47)
[2025-08-25] MEDS: MORPHINE SULFATE 2 MG IV ×5 (02:26→10:18)
[2025-08-25] MEDS: NSS (PRESERVATIVE FREE) 1 ML IV ×3 (02:26→10:47)
[2025-08-25] MEDS: ATIVAN 2 MG IV (02:27)
[2025-08-25] MEDS: HURRICAINE SPRAY 1 APPLIC TOPICAL (06:26)
[2025-08-25] MEDS: ATIVAN 0.5 MG IV ×2 (06:47→10:47)
[2025-08-25 07:10] VITALS: BP 127/68
--- NOTE | 2025-08-25 07:16 | W.PN.HOSP.TC ---
Addendum entered and electronically signed by Adam Law MD 08/25/25 13:08:
I saw and evaluated the patient. I reviewed the resident�s note and agree with findings and plan as documented in the resident�s note.
Patient been started on morphine drip as part of hospice protocol, patient was requiring repeated dose of morphine for pain in the night
Patient also was having persistent dysphagia and some anxiety symptoms, was required to be given IV Ativan
Continue all other hospice care measures
Original Note:
Today's Communication/Plan
-
Inpatient hospice care
Assessment / Plan
Assessment / Plan
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
acute CVA in R cerebellum & R posterior medulla leading to significant dysphagia, with course c/b afib w RVR, now receiving inpatient hospice care.
Problems:
#Acute CVA inferior R cerebellum, R posterior medulla w profound dysphagia/dysarthria
#Afib with RVR
#Intermittent FUO
#Persistent R M1 occlusion, chronic L MCA/R frontal stroke
#HLD
#Essential HTN
#Hypothyroidism
#Pre-DM
Plan:
- Inpatient hospice care
- Maintain goal of patient comfort & minimizing pain
- Morphine hospice protocol
- Ativan PRN for agitation
- Secretion management
- Full liquid diet for comfort as able
Anticipated Discharge: > 48 hours
Subjective/Interval History
-
Date of Service: August 25, 2025
Pt received 1 dose of ativan for agitation early am 08/25. Has been receiving 2mg morphine periodically over last 24hr since transfer to in hospice.
This am - daughter & grandchildren at bedside, tearful; patient denies pain; making gurgling/coughing sound attempting to clear secretions; gesturing to chest
Objective Data
-
Vital Signs:
Vital Signs
Temp Pulse Resp BP Pulse Ox
97.9 F 82 14 116/53 96
08/24/25 20:44 08/24/25 20:44 08/24/25 20:44 08/24/25 20:44 08/24/25 20:44
I&O
08/24/25 08/25/25 08/26/25
06:59 06:59 06:59
Intake Total 150 / 150
Balance 150 / 150
Review of Systems
-
Unable to obtain full review of systems at this time due to: Acuity
History Source: Patient
Constitutional: Reports No Symptoms
EENT: Reports Sore Throat
Respiratory: Reports Cough
Cardiac: Reports No Symptoms
Abdomen/GI: Reports No Symptoms
Genitourinary: Reports No Symptoms
Musculoskeletal: Reports No Symptoms
Skin: Reports No Symptoms
Neuro: Reports Other (dysphagia, dysarthria )
Physical Exam
-
General: Slurred Speech and Other (somewhat confused appearing, in distress when coughing, otherwise at rest appearing comfortable, gesturing to family, words not intelligible/garbled )
HEENT: Normocephalic and Atraumatic
Respiratory: Non Labored Respirations
Cardiac: Tachycardic
GI: Nondistended
Musculoskeletal: No Edema
Skin: Warm and Dry
Neuro: Awake
Psych: Calm
Data Reviewed
-
Total Time Spent with Patient (in minutes): 10
Critical Care Time (in minutes): 15
[2025-08-25] MEDS: MORPHINE 100 IV (09:37)
--- NOTE | 2025-08-25 09:56 | PTCARENOTE ---
Morphine gtt hung at 1mg/1mL/hr, placed in lockbox. Verified by second RN. Family and pt educated on gtt, comfort box ordered.
--- NOTE | 2025-08-25 10:35 | HOSPNOTE ---
Lieutenant Fire Fighter visited patient in room 2127. Lieutenant Fire Fighter was greeted by daughter Eunice who is the POA. Patient has three children and 5 grandchildren. Caregivers report she has no pain and is being treated to keep her comfortable. Family reported they are
not mandaen but more spiritual. There is no faith affiliation and this has happened unexpectedly. She was in rehab at [facility] and had another stroke. 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 She had many friends and was loved by everyone. Family requested that the prayer be more spiritual and not directed to a specific higher being. In addition, family
asked why planning assistant visited-was planning assistant asked to come by the floor nurse because mother was dying? Lieutenant Fire Fighter discussed Hospice philosophy and planning assistant services as well as protocol for visiting new admissions. The family is really struggling
emotionally and needed a lot of support for this visit. Family was instructed on bereavement resources and planning assistant provided emotional and spiritual support through presence, active listening and a spiritual prayer. All siblings were present for the
visit. Any further planning assistant visits will be on request.
--- NOTE | 2025-08-25 13:45 | HOSPNOTE ---
Patient remains inpatient appropriate for the management of pain, dyspnea and anxiety that could not be managed in the outpatient setting. Patient is now on a morphine drip at 2 mg/hr and has needed 1 breakthrough dose thus far. Patient is also
receiving IV Ativan PRN for anxiety. Please continue to wean 02 to room air as tolerated. Informal report with ALBINA Watkins, agreeable with plan of care. Will continue to see daily.
--- NOTE | 2025-08-25 13:59 | CM ---
Patient seen at bedside with family present in [address] [place] [address]. Patient now with [facility] hospice. previously patient resided w/ her daughter and son in law in a 2STH, 6 steps to enter from the outside. Patient previously seen by PCP Dr. Ben Hanks. Family
very supportive and several siblings at bedside. CM will continue to follow for discharge planning needs.
Plan; [facility] hospice
[2025-08-25 19:58] VITALS: BP 133/70
[2025-08-26 07:00] VITALS: BP 129/49
[2025-08-26] MEDS: ROBINUL 0.2 MG IV (08:21)
[2025-08-26] MEDS: ATIVAN 2 MG IV (09:38)
--- NOTE | 2025-08-26 12:12 | W.PN.HOSP.TC ---
Today's Communication/Plan
-
ongoing hospice care
Assessment / Plan
Assessment / Plan
Acute CVA inferior R cerebellum, R posterior medulla w profound dysphagia/dysarthria
Afib with RVR
Chronic R M1 occlusion, chronic L MCA/R frontal stroke
HLD
Essential HTN
Hypothyroidism
Pre-DM
Patient remains on inpatient hospice care
Discussed with the nurse who reported patient was somewhat restless in the night and required to be given breakthrough morphine
Currently on morphine drip at a rate of 1 mg/h continue per protocol and adjust further as needed
Continue all other hospice care measures
No family at bedside during my rounds
Anticipated Discharge: 24 - 48 hours
Subjective/Interval History
-
Date of Service: August 26, 2025
Comfortable in bed
Patient was somewhat restless and required to be given breakthrough morphine
Objective Data
-
Vital Signs:
Vital Signs
Temp Pulse Resp BP Pulse Ox
98.6 F 95 16 129/49 92
08/26/25 07:00 08/26/25 07:00 08/26/25 07:00 08/26/25 07:00 08/26/25 07:00
I&O
08/25/25 08/26/25 08/27/25
06:59 06:59 06:59
Intake Total 150 / 150 0 / 0
Output Total 600 / 600
Balance 150 / 150 -600 / -600
Review of Systems
-
Unable to obtain full review of systems at this time due to: Acuity
Physical Exam
-
General: Negative Appears in Distress
HEENT: Oxygen
Neuro: Negative Awake, Alert or Oriented
--- NOTE | 2025-08-26 14:17 | HOSPNOTE ---
Patient remains inpatient appropriate for management of pain and anxiety. Patient continues on morphine drip, patient has required prn lorzepam x 1 and prn robinul x 1. Patient daughter and son in law present during visit much emotional support
provided. SN coordinated with facility RN no concerns at this time. Reinforced to call office with any questions or concerns. Discharge planning continues
[2025-08-26 19:34] VITALS: BP 111/63
[2025-08-27] MEDS: ROBINUL 0.2 MG IV ×2 (01:06→06:16)
[2025-08-27] MEDS: ATIVAN 2 MG IV ×2 (01:08→06:15)
[2025-08-27] MEDS: TRANSDERM-SCOP 1 PATCH TRANSDERM (03:26)
[2025-08-27 07:04] VITALS: BP 95/48
[2025-08-27] MEDS: TYLENOL/FEVERALL 650 MG RECTAL (08:12)
--- NOTE | 2025-08-27 13:39 | W.PN.HOSP.TC ---
Today's Communication/Plan
-
continue hospice care
Assessment / Plan
Assessment / Plan
Acute CVA inferior R cerebellum, R posterior medulla w profound dysphagia/dysarthria
Fever episode
Afib with RVR
Chronic R M1 occlusion, chronic L MCA/R frontal stroke
HLD
Essential HTN
Hypothyroidism
Pre-DM
08/26
Patient remains on inpatient hospice care
Discussed with the nurse who reported patient was somewhat restless in the night and required to be given breakthrough morphine
Currently on morphine drip at a rate of 1 mg/h continue per protocol and adjust further as needed
Continue all other hospice care measures
No family at bedside during my rounds
08/27
reported increased secretion in night
spiking fever overnight
morphine drip increased to 4mg/hr
Anticipated Discharge: Within 24 hours
Subjective/Interval History
-
Date of Service: August 27, 2025
Reported patient have increased respiratory secretions
Patient also spiking fever in the night
Currently on morphine drip at a rate of 4 mg/h
Objective Data
-
Vital Signs:
Vital Signs
Temp Pulse Resp BP Pulse Ox
102.3 F H 124 16 95/48 85
08/27/25 07:04 08/27/25 07:04 08/27/25 07:04 08/27/25 07:04 08/27/25 07:04
I&O
08/26/25 08/27/25 08/28/25
06:59 06:59 06:59
Intake Total 0 / 0 0 / 0
Output Total 600 / 600 275 / 275
Balance -600 / -600 -275 / -275
Review of Systems
-
Unable to obtain full review of systems at this time due to: Acuity
Physical Exam
-
General: Comfortable
HEENT: Oxygen
Respiratory: Rhonchi and Other (shallow and slow breathing)
Neuro: Negative Awake, Alert or Oriented
--- NOTE | 2025-08-27 15:28 | W.PN.DEATH ---
Pronouncement of
-
Called to see patient to pronounce.
No spontaneous heart tones or respirations noted.
Patient not responsive to verbal stimuli.
Patient is pronounced .
Time of : 15:08
Date of : 08/27/25
Cause of : Medulla/cerebellar stroke
Family Notified: Yes
--- NOTE | 2025-08-27 15:39 | W.DCSUMMARY ---
Discharge Summary
Discharge Data
Date of Admission: 08/24/25
Date of Discharge: 08/27/25
-
Pending Results: No
Hospital Course
This is the summary on Ms. Hayden who on 08/27/2025 at 1508
List of diagnosis:
Acute CVA inferior R cerebellum, R posterior medulla w profound dysphagia/dysarthria
Fever episode
Atrial fibrillation with RVR
Chronic R M1 occlusion, chronic L MCA/R frontal stroke
HLD
Essential HTN
Hypothyroidism
Pre-DM
Hospital course
Patient is a 74-year-old female who was initially sent from rehab for new onset of balance issues/dizziness/nausea/vomiting. Patient was found to have new right cerebellum and posterior medullary stroke and was having significant
dysphagia/dysarthria from it. Tube feed was discussed although patient and family preferred to switch to hospice. Patient was admitted under hospice care on 08/24. Patient on 08/27 on hospice care. Patient family was at bedside
during the pronouncement.
Discharge Plan
-
Patient Disposition:
Date/Time
Date/Time: 08/27/25 15:08
Discharge Date and Time
Print Language: SPANISH
== END 2025-08-27 15:08 | disposition expired | DRG 951 ==
LOC: 2 NORTH 14:21
PROVIDERS: ADMITTING PHYSICIAN Hospitalist
DX: Z51.5 Encounter for palliative care (principal); I63.512 Cerebral infarction due to unspecified occlusion or stenosis of left middle cerebral artery; I63.549 Cerebral infarction due to unspecified occlusion or stenosis of unspecified cerebellar artery; I69.354 Hemiplegia and hemiparesis following cerebral infarction affecting left non-dominant side; I48.0 Paroxysmal atrial fibrillation; R47.1 Dysarthria and anarthria; R55 Syncope and collapse; I10 Essential (primary) hypertension; E78.5 Hyperlipidemia, unspecified; R07.0 Pain in throat; R73.03 Prediabetes; R50.9 Fever, unspecified; F41.9 Anxiety disorder, unspecified; E03.9 Hypothyroidism, unspecified; R13.10 Dysphagia, unspecified; Z96.653 Presence of artificial knee joint, bilateral; Z79.01 Long term (current) use of anticoagulants; Z87.891 Personal history of nicotine dependence; Z90.49 Acquired absence of other specified parts of digestive tract; Z88.0 Allergy status to penicillin